=== PATIENT | female | born 1965 | race Caucasian/White ===

== ENCOUNTER 2016-09-04 01:13 | Emergency (ER) | payer MEDICARE, MEDICAID ==
--- NOTE | 2016-09-04 01:41 | EDM.PDOC ---
ED HPI GENERAL MEDICAL PROBLEM - General Chief Complaint: General Stated Complaint: Increased SOB Time Seen by Provider: 09/04/16 01:20 Source of Information: Reports: Patient History Limitations: Reports: No limitations - History of Present Illness INITIAL COMMENTS - FREE TEXT/NARRATIVE: Pt claims that she was frying some tater toots in the frying neal around 9:30 pm when she started to feel shaky. She claims her hands started to shake and she started to feel short of breath. She felt anxious and then she tried to sleep. But felt more shaky and hence called ambulance. No chest pain. No nausea or vomiting. no chest tightness. Pt's vitals were stable on the way to the emergency room and was not in any distress. Pt appears much calm now and feels better. No other complaints. Onset Date: 09/03/16 Onset Time: 21:30 - Related Data Allergies Allergy/AdvReac Type Severity Reaction Status Date / Time No Known Allergies Allergy Verified 05/03/16 04:13 Home Meds: Home Meds Aspirin [Aspirin] 81 tab PO DAILY 08/05/13 [History] Divalproex Sodium [Divalproex Sodium ER] 500 mg PO DAILY 08/05/13 [History] Omeprazole [Omeprazole] 20 mg PO DAILY 08/05/13 [History] Simvastatin [Simvastatin] 20 mg PO BEDTIME 08/05/13 [History] Metoprolol Succinate [Toprol XL] 25 mg PO DAILY tab.er 02/28/15 [Rx] Divalproex Sodium [Divalproex Sodium ER] 1,000 mg PO BEDTIME 08/12/15 [History] Meloxicam 15 mg PO DAILY 08/12/15 [History] Nitroglycerin [Nitrostat] 0.4 mg SL ASDIRECTED PRN 08/12/15 [History] Venlafaxine HCl [Venlafaxine HCl ER] 300 mg PO DAILY 08/12/15 [History] amLODIPine [Norvasc] 2.5 mg PO DAILY 08/18/15 [History] busPIRone HCl [Buspirone HCl] 0.5 tab PO TID 08/25/15 [History] ALPRAZolam [Alprazolam] 0.5 mg PO BID 03/31/16 [History] Albuterol Sulfate 2.5 mg IH QID 03/31/16 [History] Etodolac 400 mg PO DAILY 03/31/16 [History] Fluticasone/Salmeterol [Advair 250-50 Diskus] 1 puff PO DAILY 03/31/16 [History] predniSONE [Prednisone] 50 mg PO DAILY 03/31/16 [History] Past Medical History HEENT History: Reports: Impaired vision Cardiovascular History: Reports: High cholesterol, Hypertension, Other (see below) Other Cardiovascular History: Raynaud phenomenon Respiratory History: Reports: Asthma, COPD Gastrointestinal History: Reports: GERD Genitourinary History: Reports: UTI, recurrent 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 Psychiatric History: Reports: Anxiety, Bipolar, Depression, Panic attack, Schizophrenia Dermatologic History: Reports: Other (see below) Other Dermatologic History: Chronic open area present to breast folds - Infectious Disease History Infectious Disease History: Reports: Influenza Social & Family History - Family History Family Medical History: Noncontributory HEENT: Reports: Impaired vision Cardiac: Reports: Other (see below) Other Cardiac Family History: Unknown Respiratory: Reports: Asthma GI: Reports: None : Reports: None OBGYN: Reports: None, Musculoskeletal: Reports: Arthritis Neurological: Reports: None Psychiatric: Reports: Anxiety, Bipolar, Depression, Panic attack Endocrine/Metabolic: Reports: None Hematologic: Reports: None Immunologic: Reports: None - Tobacco Use Smoking Status *Q: Current Every Day Smoker Years of Tobacco use: 20 Packs/Tins Daily: 2 Used Tobacco, but Quit: No Month Tobacco Last Used: 04/2015 Second Hand Smoke Exposure: No - Caffeine Use Caffeine Use: Reports: Coffee, Soda, Other Other Caffeine Use: juice, gatorade - Alcohol Use Days Per Week of Alcohol Use: 0 - Recreational Drug Use Recreational Drug Use: No ED ROS GENERAL - Review of Systems Review Of Systems: See Below Constitutional: Denies: fever, chills, weakness, fatigue, night sweats, diaphoresis, decreased appetite HEENT: Denies: Eye discharge, Rhinitis, Sinus problem, Throat pain, Throat swelling Respiratory: Reports: Shortness of Breath. Denies: Cough, Sputum Cardiovascular: Denies: Chest pain, Edema, Lightheadedness, Orthopnea GI/Abdominal: Denies: Abdominal pain, Anorexia, Constipation, Diarrhea, Nausea, Vomiting : Denies: dysuria, flank pain Musculoskeletal: Denies: neck pain, shoulder pain, arm pain, joint pain, joint swelling Skin: Denies: pruritis, rash Psychiatric: Reports: Anxiety. Denies: Agitation, Confusion, Depression, Hallucinations, Homicidal ideation, Suicidal ideation ED EXAM, GENERAL - Physical Exam Exam: See Below Exam Limited By: No limitations General Appearance: alert, WD/WN, no apparent distress Eye Exam: bilateral eye: EOMI, PERRL Ears: normal external exam, normal canal, hearing grossly normal, normal TMs Ear Exam: bilateral ear: auricle normal, canal normal, TM normal Nose: normal inspection, normal mucosa, no blood Throat/Mouth: Normal inspection, Normal lips, Normal teeth, Normal gums, Normal oropharynx, Normal voice, No airway compromise Head: atraumatic, normocephalic Neck: normal inspection, supple, non-tender, full range of motion Respiratory/Chest: no respiratory distress, lungs clear, normal breath sounds, no accessory muscle use, chest non-tender Cardiovascular: normal peripheral pulses, regular rate, rhythm, no edema, no gallop, no JVD, no murmur, no rub Peripheral Pulses: 2+: radial (L), radial (R) GI/Abdominal: normal bowel sounds, soft, non tender, no organomegaly, no distention, no abnormal bruit, no mass Neurological: alert, oriented, CN II-XII intact, normal cognition, normal gait, normal reflexes, no motor/sensory deficits Psychiatric: normal affect, normal mood, anxious EKG INTERPRETATION EKG Date: 09/04/16 Rhythm: NSR Rate (beats/min): 91 [place]: normal P-wave: present QRS: normal ST-T: normal QT: normal Course - Vital Signs Text/Narrative:: Pt's has significant bipolar disorder with anxiety. Her vitals are stable, her EKG is normal.Her sats appear normal at 97-99% on room air. She just had seen her psychiatrist 1 wk ago. Pt reassured that she had an anxiety attack. I have advised patient to give the hospital a call when she feels anxious and talk that way she doesn't end up in the emergency room. Pt does visit emergency room with similar complaints on and off. she has had extensive workup in the past and has been normal. her vitals and clinical exam is normal today. Pt was reassured and discharged Departure - Departure Time of Disposition: 01:50 Disposition: Home, Self-Care 01 Condition: fair Clinical Impression: Anxiety Forms: ED Department Discharge - Problem List & Annotations (1) Anxiety SNOMED Code(s): 55759495 Code(s): F41.9 - ANXIETY DISORDER, UNSPECIFIED Status: Acute Onset Date: 06/22/15 Annotation/Comment:: 09/21/15 - Anxiety, symptoms currently resolved. - Problem List Review Problem List Initiated/Reviewed/Updated: Yes - Assessment/Plan Assessment:: anxiety Plan: Pt's has significant bipolar disorder with anxiety. Her vitals are stable, her EKG is normal.Her sats appear normal at 97-99% on room air. She just had seen her psychiatrist 1 wk ago. Pt reassured that she had an anxiety attack. I have advised patient to give the hospital a call when she feels anxious and talk that way she doesn't end up in the emergency room. Pt does visit emergency room with similar complaints on and off. she has had extensive workup in the past and has been normal. her vitals and clinical exam is normal today. Pt was reassured and discharged
[2016-09-04 03:09] VITALS: BP 114/73
== END 2016-09-04 01:45 | disposition home or self-care (01) ==
LOC: LB.ED 01:13
DX: F41.9 Anxiety disorder, unspecified (principal); E78.00 Pure hypercholesterolemia, unspecified; I10 Essential (primary) hypertension; J45.909 Unspecified asthma, uncomplicated; J44.9 Chronic obstructive pulmonary disease, unspecified; K21.9 Gastro-esophageal reflux disease without esophagitis; Z87.440 Personal history of urinary (tract) infections; F32.9 Major depressive disorder, single episode, unspecified; F17.210 Nicotine dependence, cigarettes, uncomplicated; Z79.899 Other long term (current) drug therapy; Z79.82 Long term (current) use of aspirin
CPT/HCPCS: 93005; 99283; 99285-25

== ENCOUNTER 2016-10-25 22:52 | Emergency (ER) | payer MEDICARE, MEDICAID ==
[2016-10-25] MEDS ORDERED: LORazepam 0.5 MG Tab PO ONE (23:17)
[2016-10-25 23:53] VITALS: BP 135/61
[2016-10-26] MEDS ORDERED: LORazepam 0.5 MG Tab ONE (00:53)
--- NOTE | 2016-10-26 00:58 | EDM.PDOC ---
ED HPI GENERAL MEDICAL PROBLEM - General Chief Complaint: General Stated Complaint: anxiety - fall Time Seen by Provider: 10/25/16 23:00 Source of Information: Reports: Patient History Limitations: Reports: No Limitations - History of Present Illness INITIAL COMMENTS - FREE TEXT/NARRATIVE: Patient is a 51 year old woman who has a history of costochondritis and panic attacks. She was taken off of her Xanax abruptly yesterday by her psychiatrist and then today her dog bit someone and animal control took the dog to be observed. Tonight after the dog left she felt very bad and she got very anxious and had chest pain which caused her to call the ambulance to come pick her up to be brought to the ED for further evaluation. Onset: Today, Sudden Onset Date: 10/25/16 Duration: Hour(s):, Constant Location: Reports: Chest Quality: Reports: Sharp Severity: Mild Improves with: Reports: None Worsens with: Reports: None Context: Reports: Other (anxious) Associated Symptoms: Reports: No Other Symptoms - Related Data Allergies Allergy/AdvReac Type Severity Reaction Status Date / Time No Known Allergies Allergy Verified 09/04/16 03:07 Home Meds: Home Meds Aspirin [Aspirin] 81 tab PO DAILY 08/05/13 [History] Divalproex Sodium [Divalproex Sodium ER] 500 mg PO DAILY 08/05/13 [History] Omeprazole [Omeprazole] 20 mg PO DAILY 08/05/13 [History] Simvastatin [Simvastatin] 20 mg PO BEDTIME 08/05/13 [History] Metoprolol Succinate [Toprol XL] 25 mg PO DAILY tab.er 02/28/15 [Rx] Divalproex Sodium [Divalproex Sodium ER] 1,000 mg PO BEDTIME 08/12/15 [History] Meloxicam 15 mg PO DAILY 08/12/15 [History] Nitroglycerin [Nitrostat] 0.4 mg SL ASDIRECTED PRN 08/12/15 [History] Venlafaxine HCl [Venlafaxine HCl ER] 300 mg PO DAILY 08/12/15 [History] amLODIPine [Norvasc] 2.5 mg PO DAILY 08/18/15 [History] busPIRone HCl [Buspirone HCl] 0.5 tab PO TID 08/25/15 [History] ALPRAZolam [Alprazolam] 0.5 mg PO BID 03/31/16 [History] Albuterol Sulfate 2.5 mg IH QID 03/31/16 [History] Etodolac 400 mg PO DAILY 03/31/16 [History] Fluticasone/Salmeterol [Advair 250-50 Diskus] 1 puff PO DAILY 03/31/16 [History] predniSONE [Prednisone] 50 mg PO DAILY 03/31/16 [History] Past Medical History HEENT History: Reports: Impaired Vision Cardiovascular History: Reports: High Cholesterol, Hypertension, Other (See Below) Other Cardiovascular History: Raynaud phenomenon Respiratory History: Reports: COPD Gastrointestinal History: Reports: GERD Genitourinary History: Reports: UTI, 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 - Infectious Disease History Infectious Disease History: Reports: Influenza Social & Family History - Family History Family Medical History: Noncontributory HEENT: Reports: Impaired Vision Cardiac: Reports: Other (See Below) Other Cardiac Family History: Unknown Respiratory: Reports: Asthma GI: Reports: None : Reports: None OBGYN: Reports: None, Musculoskeletal: Reports: Arthritis Neurological: Reports: None Psychiatric: Reports: Anxiety, Bipolar, Depression, Panic Attack Endocrine/Metabolic: Reports: None Hematologic: Reports: None Immunologic: Reports: None - Tobacco Use Smoking Status *Q: Unknown Ever Smoked Years of Tobacco use: 20 Packs/Tins Daily: 2 Used Tobacco, but Quit: No Month Tobacco Last Used: 04/2015 Second Hand Smoke Exposure: No - Caffeine Use Caffeine Use: Reports: None Other Caffeine Use: juice, gatorade - Alcohol Use Days Per Week of Alcohol Use: 0 - Recreational Drug Use Recreational Drug Use: No ED ROS GENERAL - Review of Systems Review Of Systems: See Below Constitutional: Reports: No Symptoms HEENT: Reports: No Symptoms Respiratory: Reports: No Symptoms Cardiovascular: Reports: Chest Pain Endocrine: Reports: No Symptoms GI/Abdominal: Reports: No Symptoms : Reports: No Symptoms Musculoskeletal: Reports: No Symptoms Skin: Reports: No Symptoms Neurological: Reports: No Symptoms Psychiatric: Reports: Anxiety Hematologic/Lymphatic: Reports: No Symptoms Immunologic: Reports: No Symptoms ED EXAM, GENERAL - Physical Exam Exam: See Below Exam Limited By: No Limitations General Appearance: Alert, WD/WN, No Apparent Distress Eye Exam: Bilateral Eye: Normal Fundi, Normal Inspection Ears: Normal External Exam, Normal Canal, Hearing Grossly Normal, Normal TMs Ear Exam: Bilateral Ear: Auricle Normal, Canal Normal, TM normal Nose: Normal Inspection, Normal Mucosa, No Blood Throat/Mouth: Normal Inspection, Normal Lips, Normal Teeth, Normal Gums, Normal Oropharynx, Normal Voice, No Airway Compromise Head: Atraumatic, Normocephalic Neck: Normal Inspection, Supple, Non-Tender, Full Range of Motion Respiratory/Chest: No Respiratory Distress, Lungs Clear, Normal Breath Sounds, No Accessory Muscle Use, Chest Non-Tender Cardiovascular: Normal Peripheral Pulses, Other (Pain on palpation over the costochondral junctions reproduces pain.) Peripheral Pulses: 3+: Carotid (L), Carotid (R), Posterior Tibial (L), Posterior Tibial (R), Dorsalis Pedis (L), Dorsalis Pedis (R) GI/Abdominal: Normal Bowel Sounds, Soft, Non-Tender, No Organomegaly (Female) Exam: Normal External Exam, Normal Speculum Exam, Normal Bimanual Exam Rectal (Female) Exam: Deferred Back Exam: Normal Inspection, Full Range of Motion, NT Extremities: Normal Inspection, Normal Range of Motion, Non-Tender, Normal Capillary Refill, No Pedal Edema Neurological: Alert Psychiatric: Anxious Skin Exam: Warm, Dry, Intact, Normal Color, No Rash Lymphatic: No Adenopathy EKG INTERPRETATION EKG Date: 10/25/16 Rhythm: NSR [place]: Normal P-Wave: Present QRS: Normal ST-T: Other (Nonspecific ST changes) QT: Normal Comparison: No Change (No acute changes noted.) Course - Vital Signs Text/Narrative:: Patient was given Lorazepam 0.5 mg and that immediately relaxed her and took away her chest pain. Last Recorded V/S: Last Vital Signs Temp 36.8 C 10/25/16 23:52 Pulse 85 10/25/16 23:52 Resp 12 10/25/16 23:52 BP 135/61 10/25/16 23:52 Pulse Ox 98 10/25/16 23:52 - Orders/Labs/Meds Orders: Active Orders 24 hr Category Date Time Status EKG Documentation Completion [RC] ASDIRECTED Care 10/25/16 23:15 Active Chest 1V Frontal [CR] Stat Exams 10/25/16 23:12 Taken Labs: Laboratory Tests 10/25/16 10/25/16 Range/Units 23:45 23:45 WBC 6.8 (4.0-11.0) K/uL RBC 4.48 (3.80-5.80) M/uL Hgb 12.2 (11.5-16.5) g/dL Hct 37.8 (37.0-47.0) % MCV 84 (76-96) fL MCH 27.2 (27.0-32.0) pg MCHC 32.3 (31.0-35.0) g/dL RDW 16.5 H (11.0-16.0) % Plt Count 199 (150-500) K/uL MPV 8.8 (6.0-10.0) fL Neut % (Auto) 29.2 L (45.0-70.0) % Lymph % (Auto) 54.4 H (20.0-40.0) % [place] % (Auto) 15.0 H (3.0-10.0) % Eos % (Auto) 1.3 (1.0-5.0) % Baso % (Auto) 0.1 (0.0-0.5) % Neut # (Auto) 1.98 L (2.00-7.50) K/uL Lymph # (Auto) 3.70 (1.50-4.00) K/uL [place]ett # (Auto) 1.02 H (0.20-0.80) K/uL Eos # (Auto) 0.09 (0.04-0.40) K/uL Baso # (Auto) 0.01 L (0.02-0.10) K/uL Sodium 136 (136-145) mmol/L Potassium 3.2 L (3.5-5.1) mmol/L Chloride 103 (98-107) mmol/L Carbon Dioxide 30.0 (21.0-32.0) mmol/L Anion Gap 6.2 (5.0-15.0) mmol/L BUN 13 D (8-26) mg/dL Creatinine 0.84 (0.55-1.02) mg/dL Est Cr Clr Drug Dosing TNP Estimated GFR (MDRD) > 60 (>60) MLS/MIN BUN/Creatinine Ratio 15.5 (6-25) Glucose 124 H (74-100) mg/dL Calcium 8.6 (8.5-10.1) mg/dL Total Bilirubin 0.1 D (0.0-1.0) mg/dL AST 77 H (15-37) U/L ALT 57 (12-78) U/L Alkaline Phosphatase 120 H (46-116) U/L Troponin I < 0.017 (0.000-0.060) ng/mL Total Protein 6.9 (6.4-8.2) g/dL Albumin 2.8 L (3.4-5.0) g/dL Globulin 4.1 (2.2-4.2) g/dL Albumin/Globulin Ratio 0.7 L (0.8-2.0) Meds: Medications Discontinued Medications Generic Name Dose Route Start Last Admin Trade Name Freq PRN Reason Stop Dose Admin Lorazepam 0.5 mg 10/25/16 23:17 10/26/16 00:08 Ativan PO 10/25/16 23:18 0.5 mg ONETIME ONE Administration Departure - Departure Time of Disposition: 01:05 Disposition: Home, Self-Care 01 Condition: Good Clinical Impression: Anxiety - Discharge Information Instructions: Costochondritis, [id number], Panic Attacks Referrals: PCP,None [Primary Care Provider] - Forms: ED Department Discharge - My Orders Last 24 Hours: My Active Orders 10/25/16 23:12 Chest 1V Frontal [CR] Stat 10/25/16 23:15 EKG Documentation Completion [RC] ASDIRECTED - Assessment/Plan Last 24 Hours: My Active Orders 10/25/16 23:12 Chest 1V Frontal [CR] Stat 10/25/16 23:15 EKG Documentation Completion [RC] ASDIRECTED
--- NOTE | 2016-10-27 10:32 | CR ---
DATE OF SERVICE: 10/25/16 CLINICAL DATA: chest pain AP CHEST Comparison is made to a prior exam dated 12/19/15. The heart size is normal. The patient has taken a poor inspiration. The lungs appear clear. The exam is otherwise negative. [id number] [facility]
== END 2016-10-26 01:30 | disposition home or self-care (01) ==
LOC: LB.ED 22:52
DX: F41.9 Anxiety disorder, unspecified (principal); E78.00 Pure hypercholesterolemia, unspecified; I10 Essential (primary) hypertension; J44.9 Chronic obstructive pulmonary disease, unspecified; K21.9 Gastro-esophageal reflux disease without esophagitis; H54.7 Unspecified visual loss; E11.9 Type 2 diabetes mellitus without complications; Z79.82 Long term (current) use of aspirin; Z79.899 Other long term (current) drug therapy
CPT/HCPCS: 36415; 71010; 80053; 84484; 85025; 93005; 99284; A9270

== ENCOUNTER 2016-10-29 00:07 | Observation (INO) | payer MEDICARE, MEDICAID ==
[2016-10-29] MEDS ORDERED: LORazepam 0.5 MG Tab PO ONE (01:00)
[2016-10-29] MEDS ORDERED: Acetaminophen 325 MG Tab PO PRN (01:00)
--- NOTE | 2016-10-29 01:22 | EDM.PDOC ---
ED HPI GENERAL MEDICAL PROBLEM - General Chief Complaint: General Stated Complaint: ANXIETY Time Seen by Provider: 10/29/16 00:31 Source of Information: Reports: Patient History Limitations: Reports: No Limitations - History of Present Illness INITIAL COMMENTS - FREE TEXT/NARRATIVE: This is a 51yo F brought in via EMS for anxiety. Patient denies any chest pain or sob. She states she feels anxious and had to come in because of everything that has happened lately with the loss of her dog (held for 14 days from last sat after biting a 7yo). She has lost her in the past year and felt a lot of emotion when packing his things as she prepared to move into the [employer] in [facility]. Patient states she felt a lot better in the last ER visit when she received some medication. She was discontinued off her xanax by Dr. Ordonez due to her alcohol use but states she quit drinking on Friday as she does not want to be placed on the '3rd' floor. Patient resting calmly in the stretcher. Onset: Gradual Duration: Day(s): Location: Reports: Generalized Severity: Mild Improves with: Reports: Medication Worsens with: Reports: None Associated Symptoms: Reports: No Other Symptoms - Related Data Allergies Allergy/AdvReac Type Severity Reaction Status Date / Time No Known Allergies Allergy Verified 09/04/16 03:07 Home Meds: Home Meds Aspirin [Aspirin] 81 tab PO DAILY 08/05/13 [History] Divalproex Sodium [Divalproex Sodium ER] 500 mg PO DAILY 08/05/13 [History] Omeprazole [Omeprazole] 20 mg PO DAILY 08/05/13 [History] Simvastatin [Simvastatin] 20 mg PO BEDTIME 08/05/13 [History] Metoprolol Succinate [Toprol XL] 25 mg PO DAILY tab.er 02/28/15 [Rx] Divalproex Sodium [Divalproex Sodium ER] 1,000 mg PO BEDTIME 08/12/15 [History] Meloxicam 15 mg PO DAILY 08/12/15 [History] Nitroglycerin [Nitrostat] 0.4 mg SL ASDIRECTED PRN 08/12/15 [History] Venlafaxine HCl [Venlafaxine HCl ER] 300 mg PO DAILY 08/12/15 [History] amLODIPine [Norvasc] 2.5 mg PO DAILY 08/18/15 [History] busPIRone HCl [Buspirone HCl] 0.5 tab PO TID 08/25/15 [History] ALPRAZolam [Alprazolam] 0.5 mg PO BID 03/31/16 [History] Albuterol Sulfate 2.5 mg IH QID 03/31/16 [History] Etodolac 400 mg PO DAILY 03/31/16 [History] Fluticasone/Salmeterol [Advair 250-50 Diskus] 1 puff PO DAILY 03/31/16 [History] predniSONE [Prednisone] 50 mg PO DAILY 03/31/16 [History] Past Medical History HEENT History: Reports: Impaired Vision Cardiovascular History: Reports: High Cholesterol, Hypertension, Other (See Below) Other Cardiovascular History: Raynaud phenomenon Respiratory History: Reports: COPD Gastrointestinal History: Reports: GERD Genitourinary History: Reports: UTI, 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 - Infectious Disease History Infectious Disease History: Reports: Influenza Social & Family History - Family History Family Medical History: Noncontributory HEENT: Reports: Impaired Vision Cardiac: Reports: Other (See Below) Other Cardiac Family History: Unknown Respiratory: Reports: Asthma GI: Reports: None : Reports: None OBGYN: Reports: None, Musculoskeletal: Reports: Arthritis Neurological: Reports: None Psychiatric: Reports: Anxiety, Bipolar, Depression, Panic Attack Endocrine/Metabolic: Reports: None Hematologic: Reports: None Immunologic: Reports: None - Tobacco Use Smoking Status *Q: Current Every Day Smoker Years of Tobacco use: 20 Packs/Tins Daily: 1 Used Tobacco, but Quit: No Month Tobacco Last Used: 04/2015 Second Hand Smoke Exposure: No - Caffeine Use Caffeine Use: Reports: None Other Caffeine Use: juice, gatorade - Alcohol Use Days Per Week of Alcohol Use: 0 - Recreational Drug Use Recreational Drug Use: No ED ROS GENERAL - Review of Systems Review Of Systems: ROS reveals no pertinent complaints other than HPI. ED EXAM, GENERAL - Physical Exam Exam: See Below Exam Limited By: No Limitations General Appearance: Alert, WD/WN, No Apparent Distress Ears: Normal External Exam Nose: Normal Inspection Throat/Mouth: Normal Inspection, Other (missing teeth, cavities) Head: Atraumatic, Normocephalic Neck: Normal Inspection Respiratory/Chest: No Respiratory Distress, Lungs Clear Cardiovascular: Normal Peripheral Pulses, Regular Rate, Rhythm Peripheral Pulses: 2+: Dorsalis Pedis (L), Dorsalis Pedis (R) GI/Abdominal: Normal Bowel Sounds, Soft, Non-Tender Extremities: Normal Inspection, Normal Range of Motion Neurological: Alert, Oriented, CN II-XII Intact Skin Exam: Other (scarring and abrasions from scratching of her right breast due to anxiety, cigarrette burn of the lower right abdomen as she fell asleep smoking) Course - Vital Signs Last Recorded V/S: Last Vital Signs Temp 37.1 C 10/29/16 00:28 Pulse 91 10/29/16 00:28 Resp 12 10/29/16 00:28 BP 143/84 H 10/29/16 00:28 Pulse Ox 98 10/29/16 00:28 - Orders/Labs/Meds Orders: Active Orders 24 hr Category Date Time Status Patient Status [ADT] Routine ADT 10/29/16 01:00 Active Oxygen Therapy [RC] PRN Care 10/29/16 01:00 Active Vital Signs [RC] Q8H Care 10/29/16 01:00 Active Heart Healthy Diet [DIET] Diet 10/29/16 Breakfast Ordered Acetaminophen [Tylenol] Med 10/29/16 01:00 Active 650 mg PO Q4H PRN Medication Orders Acetaminophen (Tylenol) 650 mg PO Q4H PRN PRN Reason: analgesia/fever Meds: Medications Generic Name Dose Route Start Last Admin Trade Name Freq PRN Reason Stop Dose Admin Acetaminophen 650 mg 10/29/16 01:00 Tylenol PO Q4H PRN analgesia/fever Discontinued Medications Generic Name Dose Route Start Last Admin Trade Name Freq PRN Reason Stop Dose Admin Lorazepam 0.5 mg 10/29/16 01:00 Ativan PO 10/29/16 01:01 ONETIME ONE Departure - Departure Time of Disposition: 01:24 Disposition: Refer to Observation Condition: Good Clinical Impression: Anxiety Depression Qualifiers: Depression Type: other depression Qualified Code(s): F32.89 - Other specified depressive episodes - Discharge Information Forms: ED Department Discharge - Problem List Review Problem List Initiated/Reviewed/Updated: Yes - My Orders Last 24 Hours: My Active Orders 10/29/16 01:00 Patient Status [ADT] Routine Oxygen Therapy [RC] PRN Vital Signs [RC] Q8H Acetaminophen [Tylenol] 650 mg PO Q4H PRN 10/29/16 Breakfast Heart Healthy Diet [DIET] - Assessment/Plan Last 24 Hours: My Active Orders 10/29/16 01:00 Patient Status [ADT] Routine Oxygen Therapy [RC] PRN Vital Signs [RC] Q8H Acetaminophen [Tylenol] 650 mg PO Q4H PRN 10/29/16 Breakfast Heart Healthy Diet [DIET] Plan: Patient placed on observation and will be discharged prior to her clinic visit for further follow up and management discussion of anxiety management and medical management. Patient agrees with plan of care. 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 We will monitor her overnight and if all is well discharge her in time for her to get to her clinic appointment.
[2016-10-29 11:15] VITALS: BP 102/6
--- NOTE | 2016-10-31 09:40 | PCM.DCSUM1 ---
Discharge Summary - Discharge Data Discharge Date: 10/29/16 Discharge Disposition: Home, Self-Care 01 Condition: Good - Discharge Diagnosis/Problem(s) (1) Anxiety and depression SNOMED Code(s): 574277254 ICD Code: F41.9 - ANXIETY DISORDER, UNSPECIFIED; F32.9 - MAJOR DEPRESSIVE DISORDER, SINGLE EPISODE, UNSPECIFIED Status: Acute Priority: High Onset Date: 07/17/15 Problem Details: 10/29/15 - Anxiety and depression - Patient Instructions Diet: Usual Diet as Tolerated Activity: Rest and Relax Today - Discharge Plan Home Medications: Home Meds Aspirin [Aspirin] 81 tab PO DAILY 08/05/13 [History] Divalproex Sodium [Divalproex Sodium ER] 500 mg PO DAILY 08/05/13 [History] Omeprazole [Omeprazole] 20 mg PO DAILY 08/05/13 [History] Simvastatin [Simvastatin] 20 mg PO BEDTIME 08/05/13 [History] Metoprolol Succinate [Toprol XL] 25 mg PO DAILY tab.er 02/28/15 [Rx] Divalproex Sodium [Divalproex Sodium ER] 1,000 mg PO BEDTIME 08/12/15 [History] Meloxicam 15 mg PO DAILY 08/12/15 [History] Nitroglycerin [Nitrostat] 0.4 mg SL ASDIRECTED PRN 08/12/15 [History] Venlafaxine HCl [Venlafaxine HCl ER] 300 mg PO DAILY 08/12/15 [History] amLODIPine [Norvasc] 2.5 mg PO DAILY 08/18/15 [History] busPIRone HCl [Buspirone HCl] 0.5 tab PO TID 08/25/15 [History] ALPRAZolam [Alprazolam] 0.5 mg PO BID 03/31/16 [History] Albuterol Sulfate 2.5 mg IH QID 03/31/16 [History] Etodolac 400 mg PO DAILY 03/31/16 [History] Fluticasone/Salmeterol [Advair 250-50 Diskus] 1 puff PO DAILY 03/31/16 [History] predniSONE [Prednisone] 50 mg PO DAILY 03/31/16 [History] Forms: ED Department Discharge Referrals: PCP,None [Primary Care Provider] - - Discharge Summary/Plan Comment DC Time >30 min.: Yes Discharge Summary/Plan Comment: Patient counseled extensively with discharge instructions, alcohol cessation, medication compliance and f/u behavioral and psychiatric services. Patient agrees with plan of care and f/u today with [facility] in clinic. Patient denies any concerns or issues today. - Patient Data Vitals - Most Recent: Last Vital Signs Temp 35.9 C 10/29/16 09:00 Pulse 82 10/29/16 09:00 Resp 14 10/29/16 09:00 BP 102/6 L 10/29/16 09:00 Pulse Ox 95 10/29/16 09:00 Weight - Most Recent: 117.934 kg Med Orders - Current: Current Medications Discontinued Medications Acetaminophen (Tylenol) 650 mg PO Q4H PRN PRN Reason: analgesia/fever Last Admin: 10/29/16 01:32 Dose: 650 mg Lorazepam (Ativan) 0.5 mg PO ONETIME ONE Stop: 10/29/16 01:01 Last Admin: 10/29/16 01:32 Dose: 0.5 mg *Q Meaningful Use (DIS) - VTE *Q VTE Criteria *Q: - Stroke *Q Stroke Criteria *Q: - AMI *Q AMI Criteria *Q:
== END 2016-10-29 10:20 | disposition home or self-care (01) ==
LOC: LB.ED 00:07 → LB.MS 01:00 → UNDOADMOB 01:10 → LB.MS 01:10
PROVIDERS: ADMIT Family Medicine; ATTEND Family Medicine
DX: F41.8 Other specified anxiety disorders (principal); I10 Essential (primary) hypertension; E78.00 Pure hypercholesterolemia, unspecified; J44.9 Chronic obstructive pulmonary disease, unspecified; K21.9 Gastro-esophageal reflux disease without esophagitis; E11.9 Type 2 diabetes mellitus without complications; Z79.82 Long term (current) use of aspirin; Z79.899 Other long term (current) drug therapy; F17.210 Nicotine dependence, cigarettes, uncomplicated
CPT/HCPCS: A9270 ×2; 99235; 99284; G0378

== ENCOUNTER 2016-11-02 19:33 | Emergency (ER) | payer MEDICARE, MEDICAID ==
[2016-11-02 19:54] VITALS: BP 139/71
[2016-11-02] MEDS ORDERED: Ketorolac 60 MG/2 ML SDV IM ONE (19:54)
--- NOTE | 2016-11-03 17:07 | EDM.PDOC ---
ED HPI GENERAL MEDICAL PROBLEM - General Chief Complaint: General Stated Complaint: FALL Time Seen by Provider: 11/02/16 19:40 Source of Information: Reports: Patient History Limitations: Reports: No Limitations - History of Present Illness INITIAL COMMENTS - FREE TEXT/NARRATIVE: This is a 51yo F who is planning to move in the next week to the [facility] [place]. She fell at home in [place] and called EMS. She states she laid on the ground until they arrived. She was able to walk with EMS to their rig. She complains of left shoulder pain and denies any other injury or pain. Patient was brought to the ER for further evaluation. Onset: Sudden Duration: Minutes: Location: Reports: Upper Extremity, Left Quality: Reports: Ache Severity: Mild Improves with: Reports: None Worsens with: Reports: None Left Shoulder Pain Score (Numeric/FACES): 6 - Related Data Allergies Allergy/AdvReac Type Severity Reaction Status Date / Time No Known Allergies Allergy Verified 11/02/16 19:51 Home Meds: Home Meds Aspirin [Aspirin] 81 tab PO DAILY 08/05/13 [History] Divalproex Sodium [Divalproex Sodium ER] 500 mg PO DAILY 08/05/13 [History] Omeprazole [Omeprazole] 20 mg PO DAILY 08/05/13 [History] Simvastatin [Simvastatin] 20 mg PO BEDTIME 08/05/13 [History] Metoprolol Succinate [Toprol XL] 25 mg PO DAILY tab.er 02/28/15 [Rx] Divalproex Sodium [Divalproex Sodium ER] 1,000 mg PO BEDTIME 08/12/15 [History] Meloxicam 15 mg PO DAILY 08/12/15 [History] Nitroglycerin [Nitrostat] 0.4 mg SL ASDIRECTED PRN 08/12/15 [History] Venlafaxine HCl [Venlafaxine HCl ER] 300 mg PO DAILY 08/12/15 [History] amLODIPine [Norvasc] 2.5 mg PO DAILY 08/18/15 [History] busPIRone HCl [Buspirone HCl] 0.5 tab PO TID 08/25/15 [History] ALPRAZolam [Alprazolam] 0.5 mg PO BID 03/31/16 [History] Albuterol Sulfate 2.5 mg IH QID 03/31/16 [History] Etodolac 400 mg PO DAILY 03/31/16 [History] Fluticasone/Salmeterol [Advair 250-50 Diskus] 1 puff PO DAILY 03/31/16 [History] predniSONE [Prednisone] 50 mg PO DAILY 03/31/16 [History] Past Medical History HEENT History: Reports: Impaired Vision Cardiovascular History: Reports: High Cholesterol, Hypertension, Other (See Below) Other Cardiovascular History: Raynaud phenomenon Respiratory History: Reports: COPD Gastrointestinal History: Reports: GERD Genitourinary History: Reports: UTI, Recurrent 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 - Infectious Disease History Infectious Disease History: Reports: Chicken Pox Social & Family History - Family History Family Medical History: Noncontributory HEENT: Reports: Impaired Vision Cardiac: Reports: Other (See Below) Other Cardiac Family History: Unknown Respiratory: Reports: Asthma GI: Reports: None : Reports: None OBGYN: Reports: None, Musculoskeletal: Reports: Arthritis Neurological: Reports: None Psychiatric: Reports: Anxiety, Bipolar, Depression, Panic Attack Endocrine/Metabolic: Reports: None Hematologic: Reports: None Immunologic: Reports: None - Tobacco Use Smoking Status *Q: Former Smoker Years of Tobacco use: 20 Packs/Tins Daily: 1 Used Tobacco, but Quit: Yes Month Tobacco Last Used: 04/2015 Second Hand Smoke Exposure: No - Caffeine Use Caffeine Use: Reports: None Other Caffeine Use: juice, gatorade - Alcohol Use Days Per Week of Alcohol Use: 0 - Recreational Drug Use Recreational Drug Use: No ED ROS GENERAL - Review of Systems Review Of Systems: ROS reveals no pertinent complaints other than HPI. ED EXAM, GENERAL - Physical Exam Exam: See Below Exam Limited By: No Limitations General Appearance: Alert, WD/WN, No Apparent Distress Ears: Normal External Exam Nose: Normal Inspection Throat/Mouth: Normal Inspection Head: Atraumatic, Normocephalic Neck: Normal Inspection Respiratory/Chest: No Respiratory Distress, Lungs Clear, Normal Breath Sounds, Chest Non-Tender Cardiovascular: Normal Peripheral Pulses, Regular Rate, Rhythm Peripheral Pulses: 2+: Dorsalis Pedis (L), Dorsalis Pedis (R) GI/Abdominal: Normal Bowel Sounds, Soft, Non-Tender Extremities: Normal Inspection, Normal Range of Motion, No Pedal Edema, Normal Capillary Refill, Other (tender left arm on ROM) Course - Vital Signs Last Recorded V/S: Last Vital Signs Temp 36.1 C 11/02/16 20:05 Pulse 88 11/02/16 20:05 Resp 16 11/02/16 20:05 BP 139/71 11/02/16 20:05 Pulse Ox 100 11/02/16 20:05 - Orders/Labs/Meds Meds: Medications Discontinued Medications Generic Name Dose Route Start Last Admin Trade Name Lamar PRN Reason Stop Dose Admin Ketorolac Tromethamine 60 mg 11/02/16 19:54 11/02/16 19:50 Toradol IM 11/02/16 19:55 60 mg ONETIME ONE Administration Departure - Departure Time of Disposition: 20:20 Disposition: Home, Self-Care 01 Condition: Good Clinical Impression: Left shoulder strain Qualifiers: Encounter type: initial encounter Qualified Code(s): S46.912A - Strain of unspecified muscle, fascia and tendon at shoulder and upper arm level, left arm , initial encounter - Discharge Information Instructions: Naproxen and naproxen sodium oral immediate-release tablets Forms: ED Department Discharge Additional Instructions: Begin taking provided Aleve as directed: 1 tablet by mouth twice daily (every 12 hours) for pain. Do not take prescribed Meloxicam when taking Aleve. Activity as tolerated with affected left shoulder. Follow up in clinic if needed. Call with any questions. - Problem List Review Problem List Initiated/Reviewed/Updated: Yes - Assessment/Plan Plan: Counseled on supportive therapy and conservative care. Discussed mild injury to left shoulder and f/u in clinic if any further symptoms or concerns. Patient agrees with plan of care and f/u. Patient counseled on Aleve use and f/u.
== END 2016-11-02 20:00 | disposition home or self-care (01) ==
LOC: LB.ED 19:33
DX: S46.912A Strain of unspecified muscle, fascia and tendon at shoulder and upper arm level, left arm, initial encounter (principal); I10 Essential (primary) hypertension; E78.00 Pure hypercholesterolemia, unspecified; J44.9 Chronic obstructive pulmonary disease, unspecified; K21.9 Gastro-esophageal reflux disease without esophagitis; F41.0 Panic disorder [episodic paroxysmal anxiety]; F31.9 Bipolar disorder, unspecified; F20.9 Schizophrenia, unspecified; E11.9 Type 2 diabetes mellitus without complications; Z87.891 Personal history of nicotine dependence; Z79.82 Long term (current) use of aspirin; Z79.899 Other long term (current) drug therapy; W19.XXXA Unspecified fall, initial encounter; Y92.009 Unspecified place in unspecified non-institutional (private) residence as the place of occurrence of the external cause
CPT/HCPCS: 96372; 99283; J1885; 99282

== ENCOUNTER 2016-12-04 23:07 | Emergency (ER) | payer MEDICARE, MEDICAID ==
[2016-12-04] MEDS ORDERED: Methocarbamol 500 MG Tab ONE (23:30)
[2016-12-04 23:32] VITALS: BP 153/95
--- NOTE | 2016-12-11 12:43 | EDM.PDOC ---
ED HPI GENERAL MEDICAL PROBLEM - General Chief Complaint: General Stated Complaint: TINGLING ARMS Time Seen by Provider: 12/04/16 23:15 Source of Information: Reports: Patient History Limitations: Reports: No Limitations - History of Present Illness INITIAL COMMENTS - FREE TEXT/NARRATIVE: This is a 51yo F brought in by EMS for left arm tingling. Patient states it has happened to her in the past without progression but this time it felt worse. She didn't know what to do and called EMS. She denies any sob, no Chest pain, no other issues or concerns. She states the arm is tingling from the shoulder down. Onset: Sudden Duration: Hour(s):, Constant Location: Reports: Upper Extremity, Left Severity: Mild Improves with: Reports: None Worsens with: Reports: None Associated Symptoms: Reports: No Other Symptoms - Related Data Allergies Allergy/AdvReac Type Severity Reaction Status Date / Time No Known Allergies Allergy Verified 11/02/16 19:51 Home Meds: Home Meds Aspirin [Aspirin] 81 tab PO DAILY 08/05/13 [History] Divalproex Sodium [Divalproex Sodium ER] 500 mg PO DAILY 08/05/13 [History] Omeprazole [Omeprazole] 20 mg PO DAILY 08/05/13 [History] Simvastatin [Simvastatin] 20 mg PO BEDTIME 08/05/13 [History] Metoprolol Succinate [Toprol XL] 25 mg PO DAILY tab.er 02/28/15 [Rx] Divalproex Sodium [Divalproex Sodium ER] 1,000 mg PO BEDTIME 08/12/15 [History] Meloxicam 15 mg PO DAILY 08/12/15 [History] Nitroglycerin [Nitrostat] 0.4 mg SL ASDIRECTED PRN 08/12/15 [History] Venlafaxine HCl [Venlafaxine HCl ER] 300 mg PO DAILY 08/12/15 [History] amLODIPine [Norvasc] 2.5 mg PO DAILY 08/18/15 [History] busPIRone HCl [Buspirone HCl] 0.5 tab PO TID 08/25/15 [History] ALPRAZolam [Alprazolam] 0.5 mg PO BID 03/31/16 [History] Albuterol Sulfate 2.5 mg IH QID 03/31/16 [History] Etodolac 400 mg PO DAILY 03/31/16 [History] Fluticasone/Salmeterol [Advair 250-50 Diskus] 1 puff PO DAILY 03/31/16 [History] predniSONE [Prednisone] 50 mg PO DAILY 03/31/16 [History] Past Medical History HEENT History: Reports: Impaired Vision Cardiovascular History: Reports: High Cholesterol, Hypertension, Other (See Below) Other Cardiovascular History: Raynaud phenomenon Respiratory History: Reports: COPD Gastrointestinal History: Reports: GERD Genitourinary History: Reports: UTI, 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 - Infectious Disease History Infectious Disease History: Reports: Chicken Pox Social & Family History - Family History Family Medical History: Noncontributory HEENT: Reports: Impaired Vision Cardiac: Reports: Other (See Below) Other Cardiac Family History: Unknown Respiratory: Reports: Asthma GI: Reports: None : Reports: None OBGYN: Reports: None, Musculoskeletal: Reports: Arthritis Neurological: Reports: None Psychiatric: Reports: Anxiety, Bipolar, Depression, Panic Attack Endocrine/Metabolic: Reports: None Hematologic: Reports: None Immunologic: Reports: None - Tobacco Use Smoking Status *Q: Current Every Day Smoker Years of Tobacco use: 30 Packs/Tins Daily: 0.5 Used Tobacco, but Quit: Yes Month Tobacco Last Used: 11/2016 Second Hand Smoke Exposure: No - Caffeine Use Caffeine Use: Reports: None Other Caffeine Use: juice, gatorade - Alcohol Use Days Per Week of Alcohol Use: 0 - Recreational Drug Use Recreational Drug Use: No ED ROS GENERAL - Review of Systems Review Of Systems: ROS reveals no pertinent complaints other than HPI. ED EXAM, GENERAL - Physical Exam Exam: See Below Exam Limited By: No Limitations General Appearance: Alert, WD/WN, No Apparent Distress Eye Exam: Bilateral Eye: EOMI, PERRL Ears: Normal External Exam Nose: Normal Inspection Throat/Mouth: Normal Inspection Head: Atraumatic, Normocephalic Neck: Normal Inspection Respiratory/Chest: No Respiratory Distress, Lungs Clear, Normal Breath Sounds Cardiovascular: Normal Peripheral Pulses, Regular Rate, Rhythm GI/Abdominal: Normal Bowel Sounds Back Exam: Normal Inspection Extremities: Normal Inspection, Normal Range of Motion, Non-Tender, No Pedal Edema, Normal Capillary Refill Neurological: Alert, Oriented, CN II-XII Intact, Normal Cognition, Normal Gait, Normal Reflexes, No Motor/Sensory Deficits Psychiatric: Normal Affect, Normal Mood Skin Exam: Warm, Dry, Intact Course - Vital Signs Last Recorded V/S: Last Vital Signs Temp 36.4 C 12/04/16 23:34 Pulse 87 12/04/16 23:34 Resp 20 12/04/16 23:34 BP 153/95 H 12/04/16 23:34 Pulse Ox 99 12/04/16 23:34 - Orders/Labs/Meds Meds: Medications Discontinued Medications Generic Name Dose Route Start Last Admin Trade Name Lamar PRN Reason Stop Dose Admin Methocarbamol 7,500 mg 12/04/16 23:30 Robaxin .ROUTE 12/04/16 23:31 .STK-MED ONE Departure - Departure Time of Disposition: 00:25 Disposition: Home, Self-Care 01 Condition: Good Clinical Impression: Numbness and tingling in left upper extremity, Neck pain Instructions: Muscle Strain, [id number], Naproxen Sodium oral tablet, extended-release, Methocarbamol tablets Referrals: PCP,None [Primary Care Provider] - Forms: ED Department Discharge Additional Instructions: Begin taking provided Robaxin this evening, as directed: 1 tab by mouth every 8 hours as needed for muscle pain. Also take provided Aleve as directed: 1 tablet by mouth every 12 hours for pain present. Be sure to take Aleve with food and water to avoid causing upset stomach. Activity as tolerated. Drink plenty of fluids (water) and get plenty of rest. Follow up with regular provider in clinic as needed. Call with any questions. - Problem List Review Problem List Initiated/Reviewed/Updated: Yes - Assessment/Plan Plan: Counseled on supportive care and conservative care. Given muscle relaxants for neck and f/u in clinic as advised. F/u as needed.
== END 2016-12-04 23:46 | disposition home or self-care (01) ==
LOC: LB.ED 23:07
DX: R20.2 Paresthesia of skin (principal); R20.0 Anesthesia of skin; M54.2 Cervicalgia; F17.210 Nicotine dependence, cigarettes, uncomplicated; I10 Essential (primary) hypertension; E78.00 Pure hypercholesterolemia, unspecified; J44.9 Chronic obstructive pulmonary disease, unspecified; K21.9 Gastro-esophageal reflux disease without esophagitis; F41.0 Panic disorder [episodic paroxysmal anxiety]; F31.9 Bipolar disorder, unspecified; E11.9 Type 2 diabetes mellitus without complications; Z79.82 Long term (current) use of aspirin; Z79.899 Other long term (current) drug therapy
CPT/HCPCS: 99283; A9270

== ENCOUNTER 2017-01-22 22:51 | Emergency (ER) | payer MEDICARE, MEDICAID ==
[2017-01-22 22:56] VITALS: BP 150/73
[2017-01-22] MEDS ORDERED: Albuterol/Ipratropium 3.0-0.5 MG/3 ML Neb Soln NEB ONE (23:24)
--- NOTE | 2017-01-23 03:57 | EDM.PDOC ---
ED HPI GENERAL MEDICAL PROBLEM - General Chief Complaint: Respiratory Problem Stated Complaint: SHORTNESS OF BREATH Time Seen by Provider: 01/22/17 23:16 Source of Information: Reports: Patient History Limitations: Reports: No Limitations - History of Present Illness INITIAL COMMENTS - FREE TEXT/NARRATIVE: This is a 51yo F brought in by EMS for sob. Patient states the symptoms started tonight and worsened. She called the hospital and talked to a nurse and then called EMS to bring her in. Patient states she has some increased difficulty breathing but denies any chest pain or other concerns. EMS noted that her apartment was very warm. Onset: Gradual Duration: Hour(s): Severity: Mild Improves with: Reports: None Worsens with: Reports: None Associated Symptoms: Reports: Shortness of Breath Headache Pain Score (Numeric/FACES): 5 - Related Data Allergies Allergy/AdvReac Type Severity Reaction Status Date / Time No Known Allergies Allergy Verified 01/22/17 22:54 Home Meds: Home Meds Aspirin [Aspirin] 81 tab PO DAILY 08/05/13 [History] Divalproex Sodium [Divalproex Sodium ER] 500 mg PO DAILY 08/05/13 [History] Omeprazole [Omeprazole] 20 mg PO DAILY 08/05/13 [History] Simvastatin [Simvastatin] 20 mg PO BEDTIME 08/05/13 [History] Metoprolol Succinate [Toprol XL] 25 mg PO DAILY tab.er 02/28/15 [Rx] Divalproex Sodium [Divalproex Sodium ER] 1,000 mg PO BEDTIME 08/12/15 [History] Meloxicam 15 mg PO DAILY 08/12/15 [History] Nitroglycerin [Nitrostat] 0.4 mg SL ASDIRECTED PRN 08/12/15 [History] Venlafaxine HCl [Venlafaxine HCl ER] 300 mg PO DAILY 08/12/15 [History] amLODIPine [Norvasc] 2.5 mg PO DAILY 08/18/15 [History] busPIRone HCl [Buspirone HCl] 0.5 tab PO TID 08/25/15 [History] ALPRAZolam [Alprazolam] 0.5 mg PO BID 03/31/16 [History] Albuterol Sulfate 2.5 mg IH QID 03/31/16 [History] Etodolac 400 mg PO DAILY 03/31/16 [History] Fluticasone/Salmeterol [Advair 250-50 Diskus] 1 puff PO DAILY 03/31/16 [History] predniSONE [Prednisone] 50 mg PO DAILY 03/31/16 [History] Past Medical History HEENT History: Reports: Impaired Vision Cardiovascular History: Reports: High Cholesterol, Hypertension, Other (See Below) Other Cardiovascular History: Raynaud phenomenon Respiratory History: Reports: COPD Gastrointestinal History: Reports: GERD Genitourinary History: Reports: UTI, Recurrent 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 - Infectious Disease History Infectious Disease History: Reports: Chicken Pox Social & Family History - Family History Family Medical History: Noncontributory HEENT: Reports: Impaired Vision Cardiac: Reports: Other (See Below) Other Cardiac Family History: Unknown Respiratory: Reports: Asthma GI: Reports: None : Reports: None OBGYN: Reports: None, Musculoskeletal: Reports: Arthritis Neurological: Reports: None Psychiatric: Reports: Anxiety, Bipolar, Depression, Panic Attack Endocrine/Metabolic: Reports: None Hematologic: Reports: None Immunologic: Reports: None - Tobacco Use Smoking Status *Q: Current Every Day Smoker Years of Tobacco use: 19 Packs/Tins Daily: 1 Used Tobacco, but Quit: Yes Month Tobacco Last Used: 11/2016 Second Hand Smoke Exposure: No - Caffeine Use Caffeine Use: Reports: None Other Caffeine Use: juice, gatorade - Alcohol Use Days Per Week of Alcohol Use: 0 - Recreational Drug Use Recreational Drug Use: No ED ROS GENERAL - Review of Systems Review Of Systems: See Below Constitutional: Reports: No Symptoms HEENT: Reports: No Symptoms Respiratory: Reports: Shortness of Breath Cardiovascular: Reports: No Symptoms Endocrine: Reports: No Symptoms GI/Abdominal: Reports: No Symptoms : Reports: No Symptoms Musculoskeletal: Reports: No Symptoms Skin: Reports: No Symptoms Neurological: Reports: No Symptoms Psychiatric: Reports: No Symptoms Hematologic/Lymphatic: Reports: No Symptoms Immunologic: Reports: No Symptoms ED EXAM, GENERAL - Physical Exam Exam: See Below Exam Limited By: No Limitations General Appearance: Alert, WD/WN, Mild Distress Eye Exam: Bilateral Eye: EOMI, PERRL Ears: Normal External Exam Nose: Normal Inspection Throat/Mouth: Normal Inspection Head: Atraumatic, Normocephalic Neck: Normal Inspection Respiratory/Chest: No Respiratory Distress, Lungs Clear, Normal Breath Sounds, No Accessory Muscle Use, Chest Non-Tender Cardiovascular: Normal Peripheral Pulses, Regular Rate, Rhythm Peripheral Pulses: 2+: Dorsalis Pedis (L), Dorsalis Pedis (R) GI/Abdominal: Normal Bowel Sounds Extremities: Normal Inspection Neurological: Alert, Oriented, CN II-XII Intact, Normal Cognition, Normal Gait, Normal Reflexes, No Motor/Sensory Deficits Psychiatric: Normal Affect, Normal Mood Skin Exam: Warm, Dry, Intact Course - Vital Signs Last Recorded V/S: Last Vital Signs Temp 36.6 C 01/22/17 23:00 Pulse 88 01/22/17 23:00 Resp 24 H 01/22/17 23:00 BP 150/73 H 01/22/17 22:55 Pulse Ox 99 01/22/17 23:00 - Orders/Labs/Meds Meds: Medications Discontinued Medications Generic Name Dose Route Start Last Admin Trade Name Lamar PRTony Reason Stop Dose Admin Albuterol/Ipratropium 3 ml 01/22/17 23:24 01/22/17 23:25 Duoneb 3.0-0.5 Mg/3 Ml NEB 01/22/17 23:25 3 ml Q2H ONE Administration - Re-Assessments/Exams Free Text/Narrative Re-Assessment/Exam: Duo neb given and symptoms improved with one treatment. Departure - Departure Time of Disposition: 00:45 Disposition: Home, Self-Care 01 Condition: Good Clinical Impression: Shortness of breath - Discharge Information Instructions: Shortness of Breath, [id number] Forms: ED Department Discharge Additional Instructions: Use the Neb treatment at least 4 times a day for the next few days to help open up the lungs. Take a Neb tx at 4:00am, 8:00am, and 12:00. Then see how you feel. If still Short of Breath continue every 4 hours. If you have any problems get an appointment at the clinic to be seen.
== END 2017-01-22 23:55 | disposition home or self-care (01) ==
LOC: LB.ED 22:51
DX: R06.02 Shortness of breath (principal); H54.7 Unspecified visual loss; E78.00 Pure hypercholesterolemia, unspecified; I10 Essential (primary) hypertension; F41.9 Anxiety disorder, unspecified; F31.9 Bipolar disorder, unspecified; F17.210 Nicotine dependence, cigarettes, uncomplicated; Z87.440 Personal history of urinary (tract) infections; Z79.82 Long term (current) use of aspirin
CPT/HCPCS: 99284; A0425; A0429; J7620

== ENCOUNTER 2017-04-29 18:34 | Emergency (ER) | payer MEDICARE, MEDICAID ==
[2017-04-29] MEDS ORDERED: Sodium Chloride 0.9% 10 ML Syringe FLUSH PRN (18:50)
--- NOTE | 2017-04-29 18:57 | EDM.PDOC ---
ED HPI GENERAL MEDICAL PROBLEM - General Chief Complaint: Chest Pain Stated Complaint: chest pain Time Seen by Provider: 04/29/17 18:41 Source of Information: Reports: Patient, EMS, RN History Limitations: Reports: No Limitations - History of Present Illness INITIAL COMMENTS - FREE TEXT/NARRATIVE: 51 yr female presents with chest pain. States it started about 2pm today, when she had a phone call from a family member. States she didn't take any anxiety medicine today. Onset: Today Onset Date: 04/29/17 Onset Time: 14:00 Duration: Getting Worse, Intermittent Location: Reports: Chest Quality: Reports: Sharp Severity: Moderate Associated Symptoms: Reports: Other (neck pain) Chest Pain Score (Numeric/FACES): 5 - Related Data Allergies Allergy/AdvReac Type Severity Reaction Status Date / Time No Known Allergies Allergy Verified 04/29/17 19:38 Home Meds: Home Meds Aspirin [Aspirin] 81 tab PO DAILY 08/05/13 [History] Divalproex Sodium [Divalproex Sodium ER] 500 mg PO DAILY 08/05/13 [History] Omeprazole [Omeprazole] 20 mg PO DAILY 08/05/13 [History] Simvastatin [Simvastatin] 20 mg PO BEDTIME 08/05/13 [History] Metoprolol Succinate [Toprol XL] 25 mg PO DAILY tab.er 02/28/15 [Rx] Divalproex Sodium [Divalproex Sodium ER] 1,000 mg PO BEDTIME 08/12/15 [History] Meloxicam 15 mg PO DAILY 08/12/15 [History] Nitroglycerin [Nitrostat] 0.4 mg SL ASDIRECTED PRN 08/12/15 [History] Venlafaxine HCl [Venlafaxine HCl ER] 300 mg PO DAILY 08/12/15 [History] amLODIPine [Norvasc] 2.5 mg PO DAILY 08/18/15 [History] busPIRone HCl [Buspirone HCl] 0.5 tab PO TID 08/25/15 [History] ALPRAZolam [Alprazolam] 0.5 mg PO BID 03/31/16 [History] Albuterol Sulfate 2.5 mg IH QID 03/31/16 [History] Etodolac 400 mg PO DAILY 03/31/16 [History] Fluticasone/Salmeterol [Advair 250-50 Diskus] 1 puff PO DAILY 03/31/16 [History] predniSONE [Prednisone] 50 mg PO DAILY 03/31/16 [History] Past Medical History HEENT History: Reports: Impaired Vision Cardiovascular History: Reports: High Cholesterol, Hypertension, Other (See Below) Other Cardiovascular History: Raynaud phenomenon Respiratory History: Reports: COPD Gastrointestinal History: Reports: GERD Genitourinary History: Reports: UTI, Recurrent [employer] History: Reports: Other (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 - Infectious Disease History Infectious Disease History: Reports: Chicken Pox Social & Family History - Family History Family Medical History: Noncontributory HEENT: Reports: Impaired Vision Cardiac: Reports: Other (See Below) Other Cardiac Family History: Unknown Respiratory: Reports: Asthma GI: Reports: None : Reports: None OBGYN: Reports: None, Musculoskeletal: Reports: Arthritis Neurological: Reports: None Psychiatric: Reports: Anxiety, Bipolar, Depression, Panic Attack Endocrine/Metabolic: Reports: None Hematologic: Reports: None Immunologic: Reports: None - Tobacco Use Smoking Status *Q: Current Every Day Smoker Years of Tobacco use: 19 Packs/Tins Daily: 1 Used Tobacco, but Quit: Yes Month Tobacco Last Used: 11/2016 Second Hand Smoke Exposure: No - Caffeine Use Caffeine Use: Reports: None Other Caffeine Use: juice, gatorade - Alcohol Use Days Per Week of Alcohol Use: 0 - Recreational Drug Use Recreational Drug Use: No ED ROS GENERAL - Review of Systems Review Of Systems: See Below Constitutional: Reports: No Symptoms HEENT: Reports: No Symptoms Respiratory: Reports: No Symptoms Cardiovascular: Reports: Chest Pain GI/Abdominal: Reports: Abdominal Pain, Constipation Musculoskeletal: Reports: Back Pain Skin: Reports: Other (wound right lou and under breast) Neurological: Reports: Headache Psychiatric: Reports: Anxiety ED EXAM, GENERAL - Physical Exam Exam: See Below Exam Limited By: No Limitations General Appearance: Alert, No Apparent Distress Ears: Normal External Exam Nose: Normal Inspection Throat/Mouth: Normal Lips, Normal Voice, No Airway Compromise Head: Atraumatic, Normocephalic Neck: Supple, Non-Tender Respiratory/Chest: Lungs Clear, Normal Breath Sounds Cardiovascular: Regular Rate, Rhythm GI/Abdominal: Normal Bowel Sounds, Soft, Non-Tender Extremities: Normal Range of Motion, Non-Tender Neurological: Alert, Normal Cognition Psychiatric: Normal Affect, Normal Mood Skin Exam: Warm, Dry, Normal Color EKG INTERPRETATION EKG Date: 04/29/17 Time: 18:55 Rhythm: NSR Rate (Beats/Min): 86 Course - Vital Signs Last Recorded V/S: Last Vital Signs Temp 97.3 F 04/29/17 19:50 Pulse 110 H 04/29/17 19:50 Resp 20 04/29/17 19:50 BP 153/91 H 04/29/17 19:50 Pulse Ox 99 04/29/17 19:50 - Orders/Labs/Meds Orders: Active Orders 24 hr Category Date Time Status Cardiac Monitoring [RC] .As Directed Care 04/29/17 18:50 Active EKG Documentation Completion [RC] ASDIRECTED Care 04/29/17 18:51 Active Chest 1V Frontal [CR] Stat Exams 04/29/17 18:51 Taken B-TYPE NATRIURETIC PEPTIDE,BNP [CHEM] Stat Lab 04/29/17 19:30 Results CBC WITH AUTO DIFF [HEME] Stat Lab 04/29/17 19:30 Received COMPREHENSIVE METABOLIC PN,CMP [CHEM] Stat Lab 04/29/17 19:30 Results TROPONIN I [CHEM] Stat Lab 04/29/17 19:30 Results Sodium Chloride 0.9% [Saline Flush] Med 04/29/17 18:50 Active 10 ml FLUSH ASDIRECTED PRN Saline Lock Insert [OM.PC] Stat Oth 04/29/17 18:50 Ordered Medication Orders Sodium Chloride (Saline Flush) 10 ml FLUSH ASDIRECTED PRN PRN Reason: Keep Vein Open Labs: Laboratory Tests 04/29/17 Range/Units 19:30 Estimated GFR (MDRD) > 60 (>60) MLS/MIN Meds: Medications Generic Name Dose Route Start Last Admin Trade Name Freq PRN Reason Stop Dose Admin Sodium Chloride 10 ml 04/29/17 18:50 Saline Flush FLUSH ASDIRECTED PRN Keep Vein Open Discontinued Medications Generic Name Dose Route Start Last Admin Trade Name Isaelq PRN Reason Stop Dose Admin Lorazepam 0.5 mg 04/29/17 19:08 Ativan PO 04/29/17 19:09 ONETIME ONE Departure - Departure Time of Disposition: 20:25 Disposition: Home, Self-Care 01 Condition: Good Clinical Impression: Atypical chest pain, Anxiety Referrals: PCP,None [Primary Care Provider] - Forms: ED Department Discharge Additional Instructions: Follow up in clinic with Talisha tomorrow as previously scheduled. Call with any questions. - Problem List & Annotations (1) Anxiety SNOMED Code(s): 71011134 Code(s): F41.9 - ANXIETY DISORDER, UNSPECIFIED Status: Acute Priority: High Current Visit: No Onset Date: 06/22/15 Annotation/Comment:: 09/21/15 - Anxiety, symptoms currently resolved. (2) Chest pain SNOMED Code(s): 36153241 Code(s): R07.9 - CHEST PAIN, UNSPECIFIED Status: Acute Priority: High Current Visit: No Onset Date: 02/26/15 Annotation/Comment:: 07/07/15 - into ER Qualifiers: Chest pain type: other chest pain Qualified Code(s): R07.89 - Other chest pain - Problem List Review Problem List Initiated/Reviewed/Updated: Yes - My Orders Last 24 Hours: My Active Orders 04/29/17 18:50 Cardiac Monitoring [RC] .As Directed Sodium Chloride 0.9% [Saline Flush] 10 ml FLUSH ASDIRECTED PRN Saline Lock Insert [OM.PC] Stat 04/29/17 18:51 EKG Documentation Completion [RC] ASDIRECTED Chest 1V Frontal [CR] Stat 04/29/17 19:30 B-TYPE NATRIURETIC PEPTIDE,BNP [CHEM] Stat CBC WITH AUTO DIFF [HEME] Stat COMPREHENSIVE METABOLIC PN,CMP [CHEM] Stat TROPONIN I [CHEM] Stat - Assessment/Plan Last 24 Hours: My Active Orders 04/29/17 18:50 Cardiac Monitoring [RC] .As Directed Sodium Chloride 0.9% [Saline Flush] 10 ml FLUSH ASDIRECTED PRN Saline Lock Insert [OM.PC] Stat 04/29/17 18:51 EKG Documentation Completion [RC] ASDIRECTED Chest 1V Frontal [CR] Stat 04/29/17 19:30 B-TYPE NATRIURETIC PEPTIDE,BNP [CHEM] Stat CBC WITH AUTO DIFF [HEME] Stat COMPREHENSIVE METABOLIC PN,CMP [CHEM] Stat TROPONIN I [CHEM] Stat Assessment:: chest pain: EKG, Saline lock, chest x-ray, CBC, CMP, troponin and BNP EKG NSR w premature complex Anxiety: Lorazapam 0.5 mg PO X 1 20:06 chest x-ray done and clear. Lab results pending. States chest pain is improved after the Ativan. 20:25 Discharge to home. Reviewed lab results. Troponin negative. BNP slightly elevated. Electrolytes normal. Liver enzymes, AST and alk phos slightly elevated. Continue with medications as at home. Continue with Ativan as needed. Plan: Discharge to home. RTC tomorrow for follow-up.
[2017-04-29] MEDS ORDERED: LORazepam 0.5 MG Tab PO ONE (19:08)
[2017-04-29 19:44] VITALS: BP 153/91
--- NOTE | 2017-04-30 08:47 | CR ---
DATE OF SERVICE: 04/29/17 CLINICAL DATA: Chest Pain AP PORTABLE CHEST: Comparison is made to a prior exam dated 02/20/17. The patient has taken a poor inspiration. The heart size is normal. The pulmonary vasculature does appear mildly prominent. This is most likely related to the poor inspiration. The lungs are clear. No pneumothorax. No pleural effusions. No areas of consolidation. No other significant findings. [id number] [facility]
== END 2017-04-29 20:25 | disposition home or self-care (01) ==
LOC: LB.ED 18:34
DX: F41.9 Anxiety disorder, unspecified (principal); R07.89 Other chest pain; I10 Essential (primary) hypertension; E78.00 Pure hypercholesterolemia, unspecified; K21.9 Gastro-esophageal reflux disease without esophagitis; F41.0 Panic disorder [episodic paroxysmal anxiety]; F31.9 Bipolar disorder, unspecified; E11.9 Type 2 diabetes mellitus without complications; F17.210 Nicotine dependence, cigarettes, uncomplicated; Z79.82 Long term (current) use of aspirin; Z79.899 Other long term (current) drug therapy; Z79.1 Long term (current) use of non-steroidal anti-inflammatories (NSAID)
CPT/HCPCS: 36415; 71010; 80053; 83880; 84484; 85025; 93005; 99285; A0425; A0429

== ENCOUNTER 2017-05-02 22:27 | Emergency (ER) | payer MEDICARE, MEDICAID ==
[~2017-05-02 22:27] MED LIST: Aspirin 81 MG Tab.Chew PO ONE; Sodium Chloride 0.9% 10 ML Syringe FLUSH PRN
[2017-05-02 23:14] VITALS: BP 122/69
--- NOTE | 2017-05-03 11:21 | EDM.PDOC ---
ED HPI GENERAL MEDICAL PROBLEM - General Chief Complaint: General Stated Complaint: chest pain Time Seen by Provider: 05/02/17 23:00 Source of Information: Reports: Patient History Limitations: Reports: No Limitations - History of Present Illness INITIAL COMMENTS - FREE TEXT/NARRATIVE: This is a 51yo F here for chest pain for the past 3-4 days. Patient was seen in the ER on 04/29 with the same symptoms after a relative called her and she got upset at they are blaming her for problems they are having. Patient recently was talking to her family again and they have been calling and she states the chest pain is getting worse again. Patient denies any sob, no fever, no weakness , no other health concerns. Onset: Gradual Duration: Day(s):, Waxing/Waning Location: Reports: Chest Quality: Reports: Ache Severity: Mild Improves with: Reports: None Worsens with: Reports: None Associated Symptoms: Reports: No Other Symptoms sternal chest pain Pain Score (Numeric/FACES): 5 - Related Data Allergies Allergy/AdvReac Type Severity Reaction Status Date / Time No Known Allergies Allergy Verified 05/02/17 23:07 Home Meds: Home Meds Aspirin [Aspirin] 81 tab PO DAILY 08/05/13 [History] Divalproex Sodium [Divalproex Sodium ER] 500 mg PO DAILY 08/05/13 [History] Omeprazole [Omeprazole] 20 mg PO DAILY 08/05/13 [History] Simvastatin [Simvastatin] 20 mg PO BEDTIME 08/05/13 [History] Metoprolol Succinate [Toprol XL] 25 mg PO DAILY tab.er 02/28/15 [Rx] Divalproex Sodium [Divalproex Sodium ER] 1,000 mg PO BEDTIME 08/12/15 [History] Meloxicam 15 mg PO DAILY 08/12/15 [History] Nitroglycerin [Nitrostat] 0.4 mg SL ASDIRECTED PRN 08/12/15 [History] Venlafaxine HCl [Venlafaxine HCl ER] 300 mg PO DAILY 08/12/15 [History] amLODIPine [Norvasc] 2.5 mg PO DAILY 08/18/15 [History] busPIRone HCl [Buspirone HCl] 0.5 tab PO TID 08/25/15 [History] ALPRAZolam [Alprazolam] 0.5 mg PO BID 03/31/16 [History] Albuterol Sulfate 2.5 mg IH QID 03/31/16 [History] Etodolac 400 mg PO DAILY 03/31/16 [History] Fluticasone/Salmeterol [Advair 250-50 Diskus] 1 puff PO DAILY 03/31/16 [History] predniSONE [Prednisone] 50 mg PO DAILY 03/31/16 [History] Past Medical History HEENT History: Reports: Impaired Vision Cardiovascular History: Reports: High Cholesterol, Hypertension, Other (See Below) Other Cardiovascular History: Raynaud phenomenon Respiratory History: Reports: COPD Other Respiratory History: Current active smoker-1ppd x20 years Gastrointestinal History: Reports: GERD Genitourinary History: Reports: UTI, Recurrent [employer] History: Reports: Other (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 - Infectious Disease History Infectious Disease History: Reports: Chicken Pox Social & Family History - Family History Family Medical History: Noncontributory HEENT: Reports: Impaired Vision Cardiac: Reports: Other (See Below) Other Cardiac Family History: Unknown Respiratory: Reports: Asthma GI: Reports: None : Reports: None OBGYN: Reports: None, Musculoskeletal: Reports: Arthritis Neurological: Reports: None Psychiatric: Reports: Anxiety, Bipolar, Depression, Panic Attack Endocrine/Metabolic: Reports: None Hematologic: Reports: None Immunologic: Reports: None - Tobacco Use Smoking Status *Q: Current Every Day Smoker Years of Tobacco use: 19 Packs/Tins Daily: 1 Used Tobacco, but Quit: Yes Month Tobacco Last Used: 11/2016 Second Hand Smoke Exposure: No - Caffeine Use Caffeine Use: Reports: None Other Caffeine Use: juice, gatorade - Alcohol Use Days Per Week of Alcohol Use: 0 - Recreational Drug Use Recreational Drug Use: No ED ROS GENERAL - Review of Systems Review Of Systems: ROS reveals no pertinent complaints other than HPI. ED EXAM, GENERAL - Physical Exam Exam: See Below Exam Limited By: No Limitations General Appearance: Alert, WD/WN, No Apparent Distress Eye Exam: Bilateral Eye: EOMI, PERRL Ears: Normal External Exam Nose: Normal Inspection Throat/Mouth: Normal Inspection Head: Atraumatic, Normocephalic Neck: Normal Inspection, Supple, Non-Tender Respiratory/Chest: No Respiratory Distress, Lungs Clear Cardiovascular: Normal Peripheral Pulses GI/Abdominal: Normal Bowel Sounds Back Exam: Normal Inspection Neurological: Alert, Oriented, CN II-XII Intact Course - Vital Signs Last Recorded V/S: Last Vital Signs Temp 37.1 C 05/02/17 22:53 Pulse 82 05/02/17 23:14 Resp 16 05/02/17 22:53 BP 122/69 05/02/17 23:14 Pulse Ox 98 05/02/17 23:14 - Orders/Labs/Meds Orders: Active Orders 24 hr Category Date Time Status EKG Documentation Completion [RC] ASDIRECTED Care 05/02/17 22:20 Active Chest 1V Frontal [CR] Stat Exams 05/02/17 22:20 Taken Peripheral IV Insertion Adult [OM.PC] Routine Oth 05/02/17 22:20 Ordered Labs: Laboratory Tests 05/02/17 05/02/17 05/02/17 Range/Units 22:30 22:30 22:30 WBC 6.9 (4.0-11.0) K/uL RBC 4.71 (3.80-5.80) M/uL Hgb 13.7 (11.5-16.5) g/dL Hct 41.0 (37.0-47.0) % MCV 87 (76-96) fL MCH 29.1 (27.0-32.0) pg MCHC 33.4 (31.0-35.0) g/dL RDW 14.7 (11.0-16.0) % Plt Count 183 D (150-500) K/uL MPV 8.5 (6.0-10.0) fL Neut % (Auto) 27.9 L (45.0-70.0) % Lymph % (Auto) 59.0 H (20.0-40.0) % [place] % (Auto) 11.1 H (3.0-10.0) % Eos % (Auto) 1.9 (1.0-5.0) % Baso % (Auto) 0.1 (0.0-0.5) % Neut # (Auto) 1.92 L (2.00-7.50) K/uL Lymph # (Auto) 4.05 H (1.50-4.00) K/uL [place] # (Auto) 0.76 (0.20-0.80) K/uL Eos # (Auto) 0.13 (0.04-0.40) K/uL Baso # (Auto) 0.01 L (0.02-0.10) K/uL PT 9.5 (9.0-11.5) sec INR 1.0 (1.0-3.5) Sodium 140 (136-145) mmol/L Potassium 3.2 L (3.5-5.1) mmol/L Chloride 102 (98-107) mmol/L Carbon Dioxide 28.2 (21.0-32.0) mmol/L Anion Gap 13.0 (5.0-15.0) mmol/L BUN 14 (8-26) mg/dL Creatinine 0.93 (0.55-1.02) mg/dL Est Cr Clr Drug Dosing 61.10 mL/min Estimated GFR (MDRD) > 60 (>60) MLS/MIN BUN/Creatinine Ratio 15.1 (6-25) Glucose 94 (74-100) mg/dL Calcium 8.7 (8.5-10.1) mg/dL Total Bilirubin 0.2 (0.0-1.0) mg/dL AST 48 H (15-37) U/L ALT 35 (12-78) U/L Alkaline Phosphatase 115 (46-116) U/L Troponin I < 0.017 (0.000-0.060) ng/mL B-Natriuretic Peptide 59 D (0-125) pg/mL Total Protein 7.5 (6.4-8.2) g/dL Albumin 3.1 L (3.4-5.0) g/dL Globulin 4.4 H (2.2-4.2) g/dL Albumin/Globulin Ratio 0.7 L (0.8-2.0) Meds: Medications Discontinued Medications Generic Name Dose Route Start Last Admin Trade Name Freq PRN Reason Stop Dose Admin Aspirin 324 mg 05/02/17 22:20 05/03/17 02:49 Aspirin PO 05/02/17 22:21 Not Given ONETIME ONE Sodium Chloride 10 ml 05/02/17 22:20 Saline Flush FLUSH ASDIRECTED PRN Keep Vein Open Departure - Departure Time of Disposition: 23:45 Disposition: Home, Self-Care 01 Condition: Good Clinical Impression: Chest pain, non-cardiac, Anxiety, Panic anxiety syndrome - Discharge Information Instructions: Panic Attacks, [id number], Nonspecific Chest Pain Referrals: PCP,None [Primary Care Provider] - Forms: ED Department Discharge Additional Instructions: Keep your appt next week with Talisha at the clinic. Follow up sooner if need be. Discussed management and coping with her stress. Discussed unplugging phone due to excess stress factors causing her chest pain. Discussed rest and relaxation and f/u in clinic. F/u if symptoms persist or worsen. - My Orders Last 24 Hours: My Active Orders 05/02/17 22:20 EKG Documentation Completion [RC] ASDIRECTED Chest 1V Frontal [CR] Stat Peripheral IV Insertion Adult [OM.PC] Routine - Assessment/Plan Last 24 Hours: My Active Orders 05/02/17 22:20 EKG Documentation Completion [RC] ASDIRECTED Chest 1V Frontal [CR] Stat Peripheral IV Insertion Adult [OM.PC] Routine
--- NOTE | 2017-05-04 15:47 | CR ---
DATE OF SERVICE: 05/02/17 CLINICAL DATA: Chest pain. AP PORTABLE CHEST: Comparison is made to a prior exam dated 04/29/2017. The heart size is normal. The lungs are mildly hyper penetrated but clear. IMPRESSION: No evidence of acute intrathoracic disease. [id number] [facility]
== END 2017-05-02 23:45 | disposition home or self-care (01) ==
LOC: LB.ED 22:27
DX: R07.2 Precordial pain (principal); F41.9 Anxiety disorder, unspecified; F41.0 Panic disorder [episodic paroxysmal anxiety]; F17.210 Nicotine dependence, cigarettes, uncomplicated; E11.9 Type 2 diabetes mellitus without complications; I10 Essential (primary) hypertension; J44.9 Chronic obstructive pulmonary disease, unspecified; Z79.82 Long term (current) use of aspirin; Z79.899 Other long term (current) drug therapy
CPT/HCPCS: 36415; 71010; 80053; 83880; 84484; 85025; 85610; 93005; 99285; 99285-25; A0425; A0429

== ENCOUNTER 2017-05-06 21:06 | Emergency (ER) | payer MEDICARE, MEDICAID ==
[2017-05-06] MEDS ORDERED: Nitroglycerin 0.4 MG Tab.SL ONE (21:40)
--- NOTE | 2017-05-06 22:23 | EDM.PDOC ---
ED HPI GENERAL MEDICAL PROBLEM - General Chief Complaint: Chest Pain Stated Complaint: Chest pain and SOB Time Seen by Provider: 05/06/17 21:30 Source of Information: Reports: Patient, EMS, RN History Limitations: Reports: No Limitations - History of Present Illness INITIAL COMMENTS - FREE TEXT/NARRATIVE: 51 yr female presents with chest pain. States she tried lying in recliner chair and pain persisted, so she called the ambulance. States she didn't try anything at home for the pain before she came in. States pain is midsternal and radiates into jaw and down arm. Onset: Today Onset Date: 05/06/17 - Related Data Allergies Allergy/AdvReac Type Severity Reaction Status Date / Time No Known Allergies Allergy Verified 05/02/17 23:07 Home Meds: Home Meds Aspirin [Aspirin] 81 tab PO DAILY 08/05/13 [History] Divalproex Sodium [Divalproex Sodium ER] 500 mg PO DAILY 08/05/13 [History] Omeprazole [Omeprazole] 20 mg PO DAILY 08/05/13 [History] Simvastatin [Simvastatin] 20 mg PO BEDTIME 08/05/13 [History] Metoprolol Succinate [Toprol XL] 25 mg PO DAILY tab.er 02/28/15 [Rx] Divalproex Sodium [Divalproex Sodium ER] 1,000 mg PO BEDTIME 08/12/15 [History] Meloxicam 15 mg PO DAILY 08/12/15 [History] Nitroglycerin [Nitrostat] 0.4 mg SL ASDIRECTED PRN 08/12/15 [History] Venlafaxine HCl [Venlafaxine HCl ER] 300 mg PO DAILY 08/12/15 [History] amLODIPine [Norvasc] 2.5 mg PO DAILY 08/18/15 [History] busPIRone HCl [Buspirone HCl] 0.5 tab PO TID 08/25/15 [History] ALPRAZolam [Alprazolam] 0.5 mg PO BID 03/31/16 [History] Albuterol Sulfate 2.5 mg IH QID 03/31/16 [History] Etodolac 400 mg PO DAILY 03/31/16 [History] Fluticasone/Salmeterol [Advair 250-50 Diskus] 1 puff PO DAILY 03/31/16 [History] predniSONE [Prednisone] 50 mg PO DAILY 03/31/16 [History] Past Medical History HEENT History: Reports: Impaired Vision Cardiovascular History: Reports: High Cholesterol, Hypertension, Other (See Below) Other Cardiovascular History: Raynaud phenomenon Respiratory History: Reports: COPD Other Respiratory History: Current active smoker-1ppd x20 years Gastrointestinal History: Reports: GERD Genitourinary History: Reports: UTI, Recurrent [employer] History: Reports: Other (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 - Infectious Disease History Infectious Disease History: Reports: Chicken Pox Social & Family History - Family History Family Medical History: Noncontributory HEENT: Reports: Impaired Vision Cardiac: Reports: Other (See Below) Other Cardiac Family History: Unknown Respiratory: Reports: Asthma GI: Reports: None : Reports: None OBGYN: Reports: None, Musculoskeletal: Reports: Arthritis Neurological: Reports: None Psychiatric: Reports: Anxiety, Bipolar, Depression, Panic Attack Endocrine/Metabolic: Reports: None Hematologic: Reports: None Immunologic: Reports: None - Tobacco Use Smoking Status *Q: Current Every Day Smoker Years of Tobacco use: 19 Packs/Tins Daily: 1 Used Tobacco, but Quit: Yes Month Tobacco Last Used: 11/2016 Second Hand Smoke Exposure: No - Caffeine Use Caffeine Use: Reports: None Other Caffeine Use: juice, gatorade - Alcohol Use Days Per Week of Alcohol Use: 0 - Recreational Drug Use Recreational Drug Use: No ED ROS GENERAL - Review of Systems Review Of Systems: ROS reveals no pertinent complaints other than HPI. ED EXAM, GENERAL - Physical Exam Exam: See Below Exam Limited By: No Limitations General Appearance: Alert, No Apparent Distress Ears: Hearing Grossly Normal Nose: Normal Inspection Throat/Mouth: Normal Inspection, Normal Lips, Normal Voice, No Airway Compromise Head: Atraumatic, Normocephalic Neck: Normal Inspection, Supple, Non-Tender Respiratory/Chest: No Respiratory Distress, Lungs Clear, Normal Breath Sounds Cardiovascular: Normal Peripheral Pulses, Regular Rate, Rhythm Peripheral Pulses: 2+: Dorsalis Pedis (L), Dorsalis Pedis (R) GI/Abdominal: Normal Bowel Sounds, Soft, Non-Tender Back Exam: Normal Inspection, Full Range of Motion Extremities: Normal Inspection, Non-Tender, No Pedal Edema, Normal Capillary Refill Neurological: Alert, Oriented, Normal Cognition Psychiatric: Normal Affect, Normal Mood Skin Exam: Warm, Dry, Normal Color Lymphatic: No Adenopathy Course - Vital Signs Last Recorded V/S: Last Vital Signs Temp 97 F 05/06/17 22:15 Pulse 84 05/06/17 22:30 Resp 20 05/06/17 22:30 BP 121/73 05/06/17 22:30 Pulse Ox 98 05/06/17 22:30 - Orders/Labs/Meds Orders: Active Orders 24 hr Category Date Time Status EKG Documentation Completion [RC] ASDIRECTED Care 05/06/17 21:43 Active Labs: Laboratory Tests 05/06/17 05/06/17 Range/Units 21:45 21:45 WBC 5.1 D (4.0-11.0) K/uL RBC 4.38 (3.80-5.80) M/uL Hgb 12.9 (11.5-16.5) g/dL Hct 38.3 (37.0-47.0) % MCV 87 (76-96) fL MCH 29.5 (27.0-32.0) pg MCHC 33.7 (31.0-35.0) g/dL RDW 14.7 (11.0-16.0) % Plt Count 157 (150-500) K/uL MPV 8.2 (6.0-10.0) fL Neut % (Auto) 35.9 L (45.0-70.0) % Lymph % (Auto) 51.1 H (20.0-40.0) % [place] % (Auto) 11.2 H (3.0-10.0) % Eos % (Auto) 1.6 (1.0-5.0) % Baso % (Auto) 0.2 (0.0-0.5) % Neut # (Auto) 1.84 L (2.00-7.50) K/uL Lymph # (Auto) 2.61 (1.50-4.00) K/uL [place] # (Auto) 0.57 (0.20-0.80) K/uL Eos # (Auto) 0.08 (0.04-0.40) K/uL Baso # (Auto) 0.01 L (0.02-0.10) K/uL Sodium 141 (136-145) mmol/L Potassium 3.7 (3.5-5.1) mmol/L Chloride 102 (98-107) mmol/L Carbon Dioxide 29.5 (21.0-32.0) mmol/L Anion Gap 13.2 (5.0-15.0) mmol/L BUN 17 D (8-26) mg/dL Creatinine 0.89 (0.55-1.02) mg/dL Est Cr Clr Drug Dosing TNP Estimated GFR (MDRD) > 60 (>60) MLS/MIN BUN/Creatinine Ratio 19.1 (6-25) Glucose 116 H (74-100) mg/dL Calcium 8.6 (8.5-10.1) mg/dL Total Bilirubin 0.2 (0.0-1.0) mg/dL AST 52 H (15-37) U/L ALT 29 (12-78) U/L Alkaline Phosphatase 119 H (46-116) U/L Troponin I < 0.017 (0.000-0.060) ng/mL Total Protein 7.1 (6.4-8.2) g/dL Albumin 3.0 L (3.4-5.0) g/dL Globulin 4.1 (2.2-4.2) g/dL Albumin/Globulin Ratio 0.7 L (0.8-2.0) Meds: Medications Discontinued Medications Generic Name Dose Route Start Last Admin Trade Name Freq PRN Reason Stop Dose Admin Nitroglycerin 0.4 mg 05/06/17 21:40 Nitrostat .ROUTE 05/06/17 21:41 .STK-MED ONE - Re-Assessments/Exams Free Text/Narrative Re-Assessment/Exam: 05/06/17 22:23 EKG reviewed, NSR noted. Chest pain relieved with nitro 1 tablet. Pt states she thinks she was out in the cold too long today with walking to store and to community center. Recommend not walking outside when weather so cold and get rides with [employer]. Lab results reviewed, Troponin normal. With her pain relieved with use of nitro, may need to add Isosorbide to medications. Will F/U on medications at clinic visit tomorrow for further work-up. Rest and take it easy tonight and return to clinic tomorrow. Departure - Departure Time of Disposition: 22:50 (Law enforcement transported pt to home.) Disposition: Home, Self-Care 01 Condition: Good Clinical Impression: Chest pain Qualifiers: Chest pain type: other chest pain Qualified Code(s): R07.89 - Other chest pain Referrals: PCP,None [Primary Care Provider] - Forms: ED Department Discharge Additional Instructions: Follow up in clinic in am. - My Orders Last 24 Hours: My Active Orders 05/06/17 21:43 EKG Documentation Completion [RC] ASDIRECTED - Assessment/Plan Last 24 Hours: My Active Orders 05/06/17 21:43 EKG Documentation Completion [RC] ASDIRECTED
[2017-05-06 22:46] VITALS: BP 121/73
== END 2017-05-06 22:38 | disposition home or self-care (01) ==
LOC: LB.ED 21:06
DX: R07.89 Other chest pain (principal); E78.00 Pure hypercholesterolemia, unspecified; I10 Essential (primary) hypertension; J44.9 Chronic obstructive pulmonary disease, unspecified; K21.9 Gastro-esophageal reflux disease without esophagitis; E11.9 Type 2 diabetes mellitus without complications; F17.210 Nicotine dependence, cigarettes, uncomplicated; Z79.899 Other long term (current) drug therapy; Z79.82 Long term (current) use of aspirin
CPT/HCPCS: 36415; 80053; 84484; 85025; 93005; 99285; A0425; A0429; A9270; 99284

== ENCOUNTER 2017-05-08 20:21 | Emergency (ER) | payer MEDICARE, MEDICAID ==
[2017-05-08 21:38] VITALS: BP 126/85
[2017-05-08] MEDS ORDERED: Ketorolac 60 MG/2 ML SDV IM ONE (21:44)
--- NOTE | 2017-05-09 00:01 | ER ---
HISTORY OF PRESENT ILLNESS: A 51-year-old lady who comes in by ambulance this evening with complaints of chest pain involving the sternal area. She states it just started this afternoon. She rates the pain at about 5/10. She states it hurts when she takes a deep breath or coughs. She was given aspirin and one nitroglycerin in the ambulance, and she thinks it has helped a little bit. The patient has not been sick recently. She has not had any falls or injuries. The patient has not had any history of coronary artery disease. PAST MEDICAL HISTORY: Past medical history does include multiple episodes of chest pain and anxiety. The patient tells me that she has family members that are calling her, and they are stressing her somewhat over the holidays. OBJECTIVE: GENERAL APPEARANCE: The patient is awake and alert, in no obvious distress. VITAL SIGNS: Reviewed. She is afebrile. Blood pressure 126/85, pulse is 87, O2 sats are 99%. HEENT: Oral mucous membranes are moist. Tonsils not enlarged or injected. Pharynx not inflamed. NECK: Supple. LUNGS: Clear to auscultation. Deep breathing does induce pain along the sternum slightly, but the patient is able to take a good deep breath. I can reproduce pain with palpation along the sternal border bilaterally from about the third intercostal costal space down to the epigastric area. CARDIAC: Heart sounds distinct without murmurs. ABDOMEN: Soft. There is minimal discomfort I should say with palpation. Bowel sounds are present. LAB AND X-RAY STUDIES: An EKG shows normal sinus rhythm. Labs today include a CBC which is normal. CMP shows an elevated AST. Troponin is normal. Alkaline phosphatase is also elevated. DIAGNOSIS: Chest wall pain, noncardiac. TREATMENT PLAN: The patient will be given Toradol 60 mg IM. She also asked for a sandwich when she was here which she ate without any discomfort or problems. The patient will start using ibuprofen tomorrow morning as needed 800 mg every 8 hours for any recurrence of the chest wall pain, and I do want the patient to follow up with her primary care provider as soon as possible for recheck. She tells me this is Talisha De La Fuente. The patient has no further questions and is comfortable at this time telling me she just has a little bit of discomfort when she takes a deep breath. CRS/MODL /[id number]
== END 2017-05-08 22:27 | disposition home or self-care (01) ==
LOC: LB.ED 20:21
DX: R07.89 Other chest pain (principal)
CPT/HCPCS: 36415; 80053; 84484; 85025; 93005; 96372; 99285; A0425; A0429; J1885; 99284

== ENCOUNTER 2017-05-12 19:31 | Emergency (ER) | payer MEDICARE, MEDICAID ==
--- NOTE | 2017-05-12 19:43 | EDM.PDOC ---
ED HPI GENERAL MEDICAL PROBLEM - General Chief Complaint: Chest Pain Stated Complaint: CHEST PAIN Time Seen by Provider: 05/12/17 19:35 Source of Information: Reports: Patient, RN History Limitations: Reports: No Limitations - History of Present Illness INITIAL COMMENTS - FREE TEXT/NARRATIVE: 51 yr female presents with shortness of breath and some mid sternal chest pain. States she has been in repeatedly for this and wishes she could have some testing done to find out what is wrong. She is scheduled for a stress test on . States she is upset with people in her housing unit upset with her using the ambulance so much and states if she continued to have pain she wouldn' t come in if certain provider was in. Pt is alert and upset and some wheezing noted. After have oxygen on for 5 minutes her pain was alleviated. Onset: Today Onset Date: 05/12/17 Onset Time: 17:00 Location: Reports: Chest Quality: Reports: Pressure Severity: Moderate Improves with: Reports: Rest, Other (oxygen) Associated Symptoms: Reports: Chest Pain, Shortness of Breath - Related Data Allergies Allergy/AdvReac Type Severity Reaction Status Date / Time No Known Allergies Allergy Verified 05/12/17 20:41 Home Meds: Home Meds Aspirin [Aspirin] 81 tab PO DAILY 08/05/13 [History] Divalproex Sodium [Divalproex Sodium ER] 500 mg PO DAILY 08/05/13 [History] Omeprazole [Omeprazole] 20 mg PO ACBREAKFAST 08/05/13 [History] Simvastatin [Simvastatin] 20 mg PO BEDTIME 08/05/13 [History] Metoprolol Succinate [Toprol XL] 25 mg PO DAILY tab.er 02/28/15 [Rx] Divalproex Sodium [Divalproex Sodium ER] 1,000 mg PO BEDTIME 08/12/15 [History] Meloxicam 15 mg PO DAILY 08/12/15 [History] Nitroglycerin [Nitrostat] 0.4 mg SL ASDIRECTED PRN 08/12/15 [History] Venlafaxine HCl [Venlafaxine HCl ER] 300 mg PO DAILY 08/12/15 [History] amLODIPine [Norvasc] 2.5 mg PO DAILY 08/18/15 [History] busPIRone HCl [Buspirone HCl] 0.5 tab PO TID 08/25/15 [History] ALPRAZolam [Alprazolam] 0.5 mg PO BID 03/31/16 [History] Albuterol Sulfate 2.5 mg IH QID PRN 03/31/16 [History] Etodolac 400 mg PO DAILY 03/31/16 [History] Fluticasone/Salmeterol [Advair 250-50 Diskus] 1 puff PO DAILY 03/31/16 [History] predniSONE [Prednisone] 50 mg PO DAILY 03/31/16 [History] Past Medical History HEENT History: Reports: Impaired Vision Cardiovascular History: Reports: Angina, High Cholesterol, Hypertension, Other ( See Below) Other Cardiovascular History: Raynaud phenomenon Respiratory History: Reports: COPD Other Respiratory History: Current active smoker-1ppd x20 years Gastrointestinal History: Reports: GERD Genitourinary History: Reports: UTI, Recurrent 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 - Infectious Disease History Infectious Disease History: Reports: Chicken Pox Social & Family History - Family History Family Medical History: Noncontributory HEENT: Reports: Impaired Vision Cardiac: Reports: Other (See Below) Other Cardiac Family History: Unknown Respiratory: Reports: Asthma GI: Reports: None : Reports: None OBGYN: Reports: None, Musculoskeletal: Reports: Arthritis Neurological: Reports: None Psychiatric: Reports: Anxiety, Bipolar, Depression, Panic Attack Endocrine/Metabolic: Reports: None Hematologic: Reports: None Immunologic: Reports: None - Tobacco Use Smoking Status *Q: Current Every Day Smoker Years of Tobacco use: 15 Packs/Tins Daily: 1 Used Tobacco, but Quit: Yes Month Tobacco Last Used: 11/2016 Second Hand Smoke Exposure: No - Caffeine Use Caffeine Use: Reports: None Other Caffeine Use: juice, gatorade - Alcohol Use Days Per Week of Alcohol Use: 0 - Recreational Drug Use Recreational Drug Use: No ED ROS GENERAL - Review of Systems Review Of Systems: See Below Constitutional: Reports: No Symptoms HEENT: Reports: No Symptoms Respiratory: Reports: Shortness of Breath Cardiovascular: Reports: Chest Pain GI/Abdominal: Reports: Abdominal Pain, Nausea Musculoskeletal: Reports: No Symptoms Skin: Reports: No Symptoms Neurological: Reports: No Symptoms Psychiatric: Reports: Anxiety ED EXAM, GENERAL - Physical Exam Exam: See Below Exam Limited By: No Limitations General Appearance: Alert, No Apparent Distress Ears: Hearing Grossly Normal Throat/Mouth: Normal Inspection, Normal Lips, Normal Voice Head: Atraumatic, Normocephalic Neck: Supple, Non-Tender Respiratory/Chest: Decreased Breath Sounds (bases), Wheezing (audible intermittently) Cardiovascular: Regular Rate, Rhythm, No Edema Peripheral Pulses: 2+: Dorsalis Pedis (L), Dorsalis Pedis (R) GI/Abdominal: Normal Bowel Sounds, Soft, Non-Tender Extremities: Normal Inspection, Non-Tender, No Pedal Edema Neurological: Alert, Oriented, Normal Cognition Psychiatric: Anxious Skin Exam: Warm, Dry, Normal Color, Other (abrasions to shins bilaterally, right one is dry and scabbed, the left lou has small amount of blood to site) Course - Vital Signs Last Recorded V/S: Last Vital Signs Temp 97.2 F 05/12/17 20:45 Pulse 86 05/12/17 20:45 Resp BP 142/96 H 05/12/17 20:45 Pulse Ox 99 05/12/17 20:51 - Orders/Labs/Meds Orders: Active Orders 24 hr Category Date Time Status EKG Documentation Completion [RC] ASDIRECTED Care 05/12/17 19:36 Active Chest 2V [CR] Stat Exams 05/12/17 19:36 Ordered Labs: Laboratory Tests 05/12/17 05/12/17 Range/Units 19:53 19:53 WBC 6.1 (4.0-11.0) K/uL RBC 4.95 (3.80-5.80) M/uL Hgb 14.4 (11.5-16.5) g/dL Hct 42.9 (37.0-47.0) % MCV 87 (76-96) fL MCH 29.1 (27.0-32.0) pg MCHC 33.6 (31.0-35.0) g/dL RDW 14.5 (11.0-16.0) % Plt Count 146 L (150-500) K/uL MPV 8.8 (6.0-10.0) fL Neut % (Auto) 31.3 L (45.0-70.0) % Lymph % (Auto) 55.6 H (20.0-40.0) % [place] % (Auto) 12.2 H (3.0-10.0) % Eos % (Auto) 0.7 L (1.0-5.0) % Baso % (Auto) 0.2 (0.0-0.5) % Neut # (Auto) 1.92 L (2.00-7.50) K/uL Lymph # (Auto) 3.41 (1.50-4.00) K/uL [place] # (Auto) 0.75 (0.20-0.80) K/uL Eos # (Auto) 0.04 (0.04-0.40) K/uL Baso # (Auto) 0.01 L (0.02-0.10) K/uL Sodium 142 (136-145) mmol/L Potassium 3.4 L (3.5-5.1) mmol/L Chloride 101 (98-107) mmol/L Carbon Dioxide 32.2 H (21.0-32.0) mmol/L Anion Gap 12.2 (5.0-15.0) mmol/L BUN 19 (8-26) mg/dL Creatinine 1.06 H (0.55-1.02) mg/dL Est Cr Clr Drug Dosing TNP Estimated GFR (MDRD) 54 L (>60) MLS/MIN BUN/Creatinine Ratio 17.9 (6-25) Glucose 114 H D (74-100) mg/dL Calcium 8.9 (8.5-10.1) mg/dL Total Bilirubin 0.3 (0.0-1.0) mg/dL AST 51 H (15-37) U/L ALT 32 (12-78) U/L Alkaline Phosphatase 106 (46-116) U/L Total Protein 7.8 (6.4-8.2) g/dL Albumin 3.3 L (3.4-5.0) g/dL Globulin 4.5 H (2.2-4.2) g/dL Albumin/Globulin Ratio 0.7 L (0.8-2.0) - Re-Assessments/Exams Free Text/Narrative Re-Assessment/Exam: 05/12/17 21:11 Lab work normal. Discharge to home. Pt is scheduled for a stress test later this month. Departure - Departure Time of Disposition: 21:37 Disposition: Home, Self-Care 01 Condition: Good Clinical Impression: Anxiety attack Instructions: Nonspecific Chest Pain, [id number] Referrals: PCP,None [Primary Care Provider] - Forms: ED Department Discharge Additional Instructions: Take anxiety medication 1 tablet when getting home. contact financial services officer worker in am and discuss situation. - My Orders Last 24 Hours: My Active Orders 05/12/17 19:36 EKG Documentation Completion [RC] ASDIRECTED Chest 2V [CR] Stat - Assessment/Plan Last 24 Hours: My Active Orders 05/12/17 19:36 EKG Documentation Completion [RC] ASDIRECTED Chest 2V [CR] Stat
[2017-05-12 20:49] VITALS: BP 142/96
== END 2017-05-12 21:40 | disposition home or self-care (01) ==
LOC: LB.ED 19:31
DX: F41.9 Anxiety disorder, unspecified (principal); S80.812A Abrasion, left lower leg, initial encounter; S80.811A Abrasion, right lower leg, initial encounter; F17.210 Nicotine dependence, cigarettes, uncomplicated; F31.9 Bipolar disorder, unspecified; I10 Essential (primary) hypertension; E78.00 Pure hypercholesterolemia, unspecified; K21.9 Gastro-esophageal reflux disease without esophagitis; E11.9 Type 2 diabetes mellitus without complications; Z79.82 Long term (current) use of aspirin; Z79.899 Other long term (current) drug therapy; X58.XXXA Exposure to other specified factors, initial encounter
CPT/HCPCS: 36415; 80053; 85025; 93005; 99285; A0425; A0429; 99284

== ENCOUNTER 2017-08-26 20:26 | Emergency (ER) | payer MEDICARE, MEDICAID ==
[2017-08-26 21:46] VITALS: BP 114/70
[2017-08-26] MEDS: Ketorolac 60 MG/2 ML SDV IM ONE (22:05)
[2017-08-26] MEDS: Ketorolac 60 MG/2 ML SDV ONE (22:05)
--- NOTE | 2017-08-27 01:15 | ER ---
DATE OF SERVICE: 08/26/2017 HISTORY OF PRESENT ILLNESS: A 51-year-old lady who comes in by ambulance. The patient was at home. She was standing in the kitchen getting ready to do dishes when she states she suddenly fell backwards. She states she felt a little bit dizzy and the next thing she knows she was lying on the floor. She is complaining of headache involving the back of her head as well as the back of her neck. There was no bleeding at the site. The patient denies any other areas of pain. She states that she was feeling well earlier in the day. OBJECTIVE: GENERAL APPEARANCE: The patient is in no respiratory distress. She is wearing a C-collar applied by EMS. GCS is 15. VITAL SIGNS: Reviewed. Blood pressure 138/75, she is afebrile, pulse is 93, respirations 16, O2 saturations are 98% on room air. EYES: Pupils equal, round, and reactive to light. EOMs are intact. HEAD: Normocephalic. I carefully removed the C-collar temporarily and with palpation of the back of the patient's head there is no lump or mass. There is no break in the skin. She also has some pain down the posterior aspect of midline of the cervical spine. Skin is warm and dry in this area without swelling or discoloration. Cranial nerves 2 thru 12 are intact. LUNGS: Clear. CARDIAC: Heart sounds distinct without murmurs. SKIN: Warm and dry. LAB AND X-RAY: Head CT is obtained without contrast and is negative. CT of the cervical spine also is negative for any acute findings. Labs today include a CBC, which is normal. Basic metabolic panel shows a glucose of 103. The patient has been rating her pain at 5/10. DIAGNOSIS: Fall with closed head injury and neck pain with negative findings. TREATMENT PLAN: The patient was given a sandwich to eat here. She also was given Toradol 60 mg IM. We monitored her for about 30 minutes after which she was up and walking around, going to the bathroom. The patient states that she felt a little dizzy when she first stood up and started walking, but this resolved and she was able to walk to the bathroom and back without any further discomfort or symptoms. At this point, the patient will be discharged home. She is to use Tylenol or ibuprofen as needed for pain. She can apply ice pack to the back of her head and back of her neck as needed and followup should be as needed over the next couple of days. If her symptoms recur or persist, she is to call the clinic tomorrow to set up an appointment for recheck. The patient is agreeable with the treatment plan and has no further questions. MONSTER/FAY /[id number] EZ
--- NOTE | 2017-08-27 10:12 | CT ---
DATE OF SERVICE: 08/26/17 CLINICAL DATA: Fall with head and neck pain UNENHANCED BRAIN CT: Multislice acquisition through the brain without IV contrast was performed. No priors. There is diffuse cerebral atrophy. There are periventricular lucencies bilaterally consistent with small vessel ischemic change. There are lucencies in the basal ganglia bilaterally consistent with old lacunar infarcts. No masses or mass effect. No intracranial hemorrhage. No evidence of acute or subacute infarct. No osseous abnormalities. IMPRESSION: No acute intracranial abnormalities. [id number] [facility]
--- NOTE | 2017-08-27 10:17 | CT ---
DATE OF SERVICE: 08/26/17 CLINICAL DATA: fall with head and neck pain. CERVICAL SPINE CT: Multislice axial acquisition was performed. Axial images and sagittal and coronal reformations are reviewed. There is reversal of the normal cervical lordosis on the sagittal reformations. The vertebral are of average height and in good alignment. No acute fracture or dislocation. No lytic or blastic bone lesions. There is degenerative disc disease at multiple levels with disc space narrowing at the C5-6 level. There are degenerative changes involving the atlantoaxial articulation. There is facet joint hypertrophy at multiple levels. The soft tissues are unremarkable. The visualized lung apices are clear. IMPRESSION: No acute abnormalities. [id number] [facility]
== END 2017-08-26 22:50 | disposition home or self-care (01) ==
LOC: LB.ED 20:26
DX: S09.90XA Unspecified injury of head, initial encounter (principal); M54.2 Cervicalgia; W19.XXXA Unspecified fall, initial encounter; Y92.000 Kitchen of unspecified non-institutional (private) residence as the place of occurrence of the external cause
CPT/HCPCS: 36415; 70450; 72125; 80048; 85025; 99283; A0425; A0429; J1885

== ENCOUNTER 2017-09-25 19:32 | Emergency (ER) | payer MEDICARE, MEDICAID ==
[2017-09-25] MEDS ORDERED: Aspirin 81 MG Tab.Chew PO ONE (20:10)
[2017-09-25] MEDS ORDERED: LORazepam 1 MG Tab PO ONE (20:10)
[2017-09-25] MEDS ORDERED: Nitroglycerin 0.4 MG Tab.SL SL ONE (20:11)
[2017-09-25 23:09] VITALS: BP 130/70
--- NOTE | 2017-09-25 23:27 | ER ---
DATE OF SERVICE: 09/25/2017 HPI: A 52-year-old lady who comes in by ambulance with complaint of chest pain that she has had all day. She tells me that she currently rates her pain at 7/10. There is pain also radiating into the left shoulder and left upper arm. The patient has not been nauseated. She denies any falls or injuries. She states that she has been very stressed lately. She has had problems with a co-worker last Friday. She got into an argument with the co-worker and ended up in a panic attack. She states she was seen in [place] for this. She states that she still feels stressed, but she is concerned about her heart. The patient does not have any history of coronary artery disease, but she has had multiple episodes of chest pain that she has been seen for. OBJECTIVE: GENERAL APPEARANCE: The patient is awake and alert. No respiratory distress. VITAL SIGNS: Reviewed. Blood pressure 148/80, pulse is 82, respirations are 20 , O2 sats are 99%. Physical exam, oral mucous membranes moist. Tonsils not enlarged or injected. Pharynx not inflamed. NECK: Supple. LUNGS: Clear. CARDIAC: Heart sounds distinct. S1, S2 present. Regular rate. No murmurs. ABDOMEN: Soft, protuberant, and nontender to palpation. SKIN: Warm and dry. INITIAL TREATMENT PLAN: Four baby aspirin were given to the patient p.o. An EKG was obtained showing a normal sinus rhythm. At this point, I gave the patient Ativan 2 mg p.o. Labs include a CBC which is normal. CMP is also unremarkable. Troponin is negative. DIAGNOSIS: Anxiety. TREATMENT PLAN: At this point, the patient's pain is 0. She was given some food, which she ate here and she will be discharged to go home. She also does take alprazolam as one of her home medications. She states she has been taking it twice a day. I advised the patient to increase that right now to 3 times a day and a followup should be next week with her primary care provider as needed. Follow up sooner of course p.r.n. if her condition should get worse. CRS/MODL /[id number]
--- NOTE | 2017-09-27 03:01 | ER ---
ADDENDUM: In regard to treatment plan, I was under the impression the patient will take an alprazolam b.i.d. She told me that she was taking this, it turns out this was indeed hydroxyzine 50 mg that she can take t.i.d. p.r.n. Therefore, we will switch the order to hydroxyzine 50 mg t.i.d. p.r.n. I advised her to take it 3 times a day for a couple of days and then go to p.r.n. Alprazolam is no longer being used. CRS/MODL /[id number]
== END 2017-09-25 21:30 | disposition home or self-care (01) ==
LOC: LB.ED 19:32
DX: F41.9 Anxiety disorder, unspecified (principal)
CPT/HCPCS: 36415; 80053; 84484; 85025; 93005; 99284-25; A0425; A0429; A9270-GY

== ENCOUNTER 2017-10-07 19:31 | Emergency (ER) | payer MEDICARE, MEDICAID ==
[2017-10-07 19:59] VITALS: BP 143/55
[2017-10-07] MEDS ORDERED: Albuterol/Ipratropium 3.0-0.5 MG/3 ML Neb Soln NEB ONE (20:06)
[2017-10-07] MEDS ORDERED: Albuterol/Ipratropium 3.0-0.5 MG/3 ML Neb Soln ONE ×2 (20:10→20:11)
--- NOTE | 2017-10-08 00:07 | ER ---
DATE OF SERVICE: 10/07/2017 HPI: A 52-year-old female who comes in by ambulance after complaining about it being too hot in her apartment today. She does not have air conditioning. She does have one fan. She states that she decided to try to go for a walk and she did not feel good after this. She started coughing on one occasion and coughed up a little bit of blood she tells us. The patient has not been vomiting. She tells me that she does not like to drink water. She usually drinks juice, and she has not had anything to eat since earlier today several hours ago. She is also concerned about a neighbor in her apartment building whom she is not getting along with. OBJECTIVE: GENERAL APPEARANCE: The patient is awake. She is in no respiratory distress, but I can hear some audible end-expiratory wheezes present. VITAL SIGNS: Reviewed. Blood pressure 143/55, pulse is 100, temp is afebrile at 98.3, O2 sats are at 98%, respiratory rate 12. Physical exam, lung exam, the patient does have scattered end- expiratory wheezes. CARDIAC: Heart sounds distinct without murmurs. SKIN: Warm and dry. DIAGNOSIS: Heat exhaustion, mild in nature. TREATMENT PLAN IN ER: We had the patient drinking fluids. She did not want water, therefore, she was drinking juice for us, and she was able to take in a couple of large containers approximately a half a liter I believe. Ice packs were applied to the forehead area as well as the axillary areas, and the patient stated that she did feel better. After observing her for about an hour, she was able to get up and void and go to the bathroom and come back under her own power. She states that she just feels a little weak. DIAGNOSIS: Heat exhaustion. TREATMENT PLAN: The patient will be discharged to go home. I advised her that she needs to drink fluids. If she does not want water, she needs to drink something like juice and try to stay away from carbonated beverages. She is to move the fan in her apartment to her bedroom at night and put it in front of her chair during the day, so she can have the fan blowing most of the time on her, to keep the windows open at night, to pull the change during the day. I advised the patient that she feels like she is overheating. She also should take a cool shower once or twice a day. When she came in by ambulance, she had on a sweatshirt over the top of the T-shirt. I advised patient that she needs to not wear extra clothing to let the heat escape. The patient agrees with the treatment plan and has no further questions. MONSTER/FAY /[id number] EZ
== END 2017-10-07 20:55 | disposition home or self-care (01) ==
LOC: LB.ED 19:31
DX: T67.5XXA Heat exhaustion, unspecified, initial encounter (principal)
CPT/HCPCS: 99284; A0425; A0429; J7620; 99283

== ENCOUNTER 2017-10-14 21:21 | Emergency (ER) | payer MEDICARE, MEDICAID ==
[2017-10-14 23:24] VITALS: BP 132/83
--- NOTE | 2017-10-15 08:49 | EDM.PDOC ---
ED HPI GENERAL MEDICAL PROBLEM - General Chief Complaint: General Stated Complaint: CHEST PAIN Time Seen by Provider: 10/14/17 21:25 Source of Information: Reports: Patient History Limitations: Reports: No Limitations - History of Present Illness INITIAL COMMENTS - FREE TEXT/NARRATIVE: Pt presented by EMS ambulance to emergency room for mid chest pain. Apparently she has been having chest pain all day today. Hurts to take deep breath and also if she put pressure on the midchest. Pt was trying to lye down to go to bed and felt sharp chest pain and started to feel anxious and call EMS. No sweating or weakness. No palpations, no shortness or breath. No nausea or vomiting. No fever, chills or cough. According to patient she almost had a fall in the bath tub and she tried to prevent the fall by hold on to the grab bars and felt some pain in her chest, but was fine, when she woke up next day she started noticing the pain in her chest and it got worse tonight. Pt has not tried any OTC medications for her pain. Onset Date: 10/13/17 Duration: Intermittent Location: Reports: Chest Quality: Reports: Sharp Severity: Moderate Improves with: Reports: None Worsens with: Reports: Breathing, Movement Associated Symptoms: Reports: Chest Pain. Denies: Confusion, Cough, Diaphoresis , Fever/Chills, Headaches, Nausea/Vomiting, Rash, Seizure, Shortness of Breath, Syncope, Weakness Chest Pain Score (Numeric/FACES): 7 - Related Data Allergies Allergy/AdvReac Type Severity Reaction Status Date / Time No Known Allergies Allergy Verified 10/14/17 23:19 Home Meds: Home Meds Aspirin 81 tab PO DAILY 08/05/13 [History] Divalproex Sodium [Divalproex Sodium ER] 500 mg PO DAILY 08/05/13 [History] Omeprazole 20 mg PO ACBREAKFAST 08/05/13 [History] Simvastatin 20 mg PO BEDTIME 08/05/13 [History] Metoprolol Succinate [Toprol XL] 25 mg PO DAILY tab.er 02/28/15 [Rx] Divalproex Sodium [Divalproex Sodium ER] 1,000 mg PO BEDTIME 08/12/15 [History] Meloxicam 15 mg PO DAILY 08/12/15 [History] Nitroglycerin [Nitrostat] 0.4 mg SL ASDIRECTED PRN 08/12/15 [History] Venlafaxine HCl [Venlafaxine HCl ER] 300 mg PO DAILY 08/12/15 [History] amLODIPine [Norvasc] 2.5 mg PO DAILY 08/18/15 [History] busPIRone HCl [Buspirone HCl] 0.5 tab PO TID 08/25/15 [History] ALPRAZolam [Alprazolam] 0.5 mg PO BID 03/31/16 [History] Albuterol Sulfate 2.5 mg IH QID PRN 03/31/16 [History] Etodolac 400 mg PO DAILY 03/31/16 [History] Fluticasone/Salmeterol [Advair 250-50 Diskus] 1 puff PO DAILY 03/31/16 [History] predniSONE [Prednisone] 50 mg PO DAILY 03/31/16 [History] Past Medical History HEENT History: Reports: Impaired Vision Cardiovascular History: Reports: Angina, High Cholesterol, Hypertension, Other ( See Below) Other Cardiovascular History: Raynaud phenomenon Respiratory History: Reports: COPD Other Respiratory History: Current active smoker-1ppd x20 years Gastrointestinal History: Reports: GERD Genitourinary History: Reports: UTI, Recurrent MOTOR 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 Neurological History: Reports: Migraines Psychiatric History: Reports: Anxiety, Bipolar, Depression, Panic Attack, Schizophrenia Endocrine/Metabolic History: Reports: Diabetes, Type II Other Endocrine/Metabolic History: pt denies having diabetes 08/26/17 Dermatologic History: Reports: Other (See Below) Other Dermatologic History: Chronic open area present to breast folds - Infectious Disease History Infectious Disease History: Reports: Chicken Pox - Past Surgical History HEENT Surgical History: Reports: Adenoidectomy, Tonsillectomy Other HEENT Surgeries/Procedures: at about 11 year old had tonsils and adenoids removed Cardiovascular Surgical History: Reports: Coronary Artery Stent, Other (See Below) Other Cardiovascular Surgeries/Procedures: pt states she has stents put in her heart in jun GI Surgical History: Reports: Colonoscopy Social & Family History - Family History Family Medical History: Noncontributory HEENT: Reports: Impaired Vision Cardiac: Reports: Other (See Below) Other Cardiac Family History: Unknown Respiratory: Reports: Asthma GI: Reports: None : Reports: None OBGYN: Reports: None, Musculoskeletal: Reports: Arthritis Neurological: Reports: None Psychiatric: Reports: Anxiety, Bipolar, Depression, Panic Attack Endocrine/Metabolic: Reports: None Hematologic: Reports: None Immunologic: Reports: None - Tobacco Use Smoking Status *Q: Current Every Day Smoker Years of Tobacco use: 35 Packs/Tins Daily: 1 Used Tobacco, but Quit: No Second Hand Smoke Exposure: No - Caffeine Use Caffeine Use: Reports: Coffee, Soda Other Caffeine Use: 2 bottles a day - Recreational Drug Use Recreational Drug Use: No ED ROS GENERAL - Review of Systems Review Of Systems: See Below Constitutional: Denies: Fever, Chills, Malaise, Weakness, Fatigue, Night Sweats , Diaphoresis HEENT: Denies: Vision Change Respiratory: Reports: Pleuritic Chest Pain. Denies: Shortness of Breath, Wheezing, Cough, Sputum Cardiovascular: Reports: Chest Pain. Denies: Lightheadedness GI/Abdominal: Denies: Abdominal Pain, Constipation, Diarrhea, Nausea, Vomiting : Denies: Dysuria, Flank Pain Musculoskeletal: Denies: Joint Pain, Joint Swelling Skin: Denies: Bruising, Pruritis, Rash Neurological: Denies: Confusion Psychiatric: Reports: Anxiety. Denies: Agitation, Confusion ED EXAM, GENERAL - Physical Exam Exam: See Below Exam Limited By: No Limitations General Appearance: Alert, WD/WN, No Apparent Distress Eye Exam: Bilateral Eye: EOMI, PERRL Ears: Normal External Exam, Normal Canal, Hearing Grossly Normal, Normal TMs Ear Exam: Bilateral Ear: Auricle Normal, Canal Normal, TM normal Nose: Normal Inspection, Normal Mucosa, No Blood Throat/Mouth: Normal Inspection, Normal Lips, Normal Teeth, Normal Gums, Normal Oropharynx, Normal Voice, No Airway Compromise Head: Atraumatic, Normocephalic Neck: Normal Inspection, Supple, Non-Tender, Full Range of Motion Respiratory/Chest: No Respiratory Distress, Lungs Clear, Normal Breath Sounds, No Accessory Muscle Use, Other (pt is tender over hte sternum, more so over the costochondral junction of 3,4 and 5th ribs.) Cardiovascular: Normal Peripheral Pulses, Regular Rate, Rhythm, No Edema, No Gallop, No JVD, No Murmur, No Rub EKG INTERPRETATION EKG Date: 10/14/17 Rhythm: NSR [place]: Normal P-Wave: Present QRS: Normal ST-T: Normal Course - Vital Signs Text/Narrative:: Pt reassured that her EKG is in NSR. Also she has elicitable tenderness over the sterno-chondral junctions of the anterior chest. Pt reassured that she has strained the joint when she tried to prevent a fall on 10/13/17. Advised deep breathing exercises. Intermittent heat to the chest wall 3-4 times daily. Motrin 600mg 3 times daily with food for 3-5 days. If symptoms not better in 1 wk, followup in clinic with her primary care provider. Last Recorded V/S: Last Vital Signs Temp 98.2 F 10/14/17 21:30 Pulse 92 10/14/17 21:30 Resp 16 10/14/17 21:30 BP 132/83 10/14/17 21:30 Pulse Ox 95 10/14/17 21:30 - Orders/Labs/Meds Orders: Active Orders 24 hr Category Date Time Status EKG Documentation Completion [RC] ASDIRECTED Care 10/14/17 21:45 Active Departure - Departure Time of Disposition: 22:00 Disposition: Home, Self-Care 01 Condition: Good Clinical Impression: Costochondritis, acute - Discharge Information Forms: ED Department Discharge Additional Instructions: Activity and diet as tolerated. Drink plenty of fluids (water) and get plenty of rest. Be sure to take all your regularly prescribed medications. May apply a warm compress to tender area 4 times daily for next several days. 400-600mg Motrin (Ibuprofen) up to 3 times daily as needed for pain. Follow up with regular provider if needed. Call with any questions. - Problem List & Annotations (1) Costochondritis, acute SNOMED Code(s): 46963671, 37059197 Code(s): M94.0 - CHONDROCOSTAL JUNCTION SYNDROME [TIETZE] Status: Acute - Problem List Review Problem List Initiated/Reviewed/Updated: Yes - My Orders Last 24 Hours: My Active Orders 10/14/17 21:45 EKG Documentation Completion [RC] ASDIRECTED - Assessment/Plan Last 24 Hours: My Active Orders 10/14/17 21:45 EKG Documentation Completion [RC] ASDIRECTED Assessment:: Costochondritis Plan: Pt reassured that her EKG is in NSR. Also she has elicitable tenderness over the sterno-chondral junctions of the anterior chest. Pt reassured that she has strained the joint when she tried to prevent a fall on 10/13/17. Advised deep breathing exercises. Intermittent heat to the chest wall 3-4 times daily. Motrin 600mg 3 times daily with food for 3-5 days. If symptoms not better in 1 wk, followup in clinic with her primary care provider.
== END 2017-10-14 21:50 | disposition home or self-care (01) ==
LOC: LB.ED 21:21
DX: M94.0 Chondrocostal junction syndrome [Tietze] (principal); E78.00 Pure hypercholesterolemia, unspecified; I10 Essential (primary) hypertension; E11.9 Type 2 diabetes mellitus without complications; F17.210 Nicotine dependence, cigarettes, uncomplicated; Z79.82 Long term (current) use of aspirin; Z79.899 Other long term (current) drug therapy
CPT/HCPCS: 93005; 99283; 99285-25; A0425; A0429

== ENCOUNTER 2017-10-19 19:08 | Emergency (ER) | payer MEDICARE, MEDICAID ==
--- NOTE | 2017-10-19 19:32 | EDM.PDOC ---
ED HPI GENERAL MEDICAL PROBLEM - General Chief Complaint: General Stated Complaint: SOB Time Seen by Provider: 10/19/17 19:10 Source of Information: Reports: Patient History Limitations: Reports: No Limitations - History of Present Illness INITIAL COMMENTS - FREE TEXT/NARRATIVE: According to patient she was sitting outside in the sun and she got up to go into her apartment and she felt like she could not breath in and out of her chest. There was no chest pain or diaphoresis. she just sat back in the chair and called for ambulance. No fever or chills. she claims she feels better now. When the EMS went to pick her up, she was alert. Her SPO2 was 96% on RA, and did not appear in any discomfort. Vitals were stable. No other complaints. Pt claims she feels fine now. Onset: Today Onset Date: 10/19/17 Onset Time: 19:00 Duration: Improving Improves with: Reports: None Worsens with: Reports: None Associated Symptoms: Reports: Shortness of Breath. Denies: Confusion, Chest Pain, Cough, Diaphoresis, Fever/Chills, Headaches, Malaise, Nausea/Vomiting, Rash, Seizure, Syncope, Weakness congested chest Pain Score (Numeric/FACES): 4 - Related Data Allergies Allergy/AdvReac Type Severity Reaction Status Date / Time No Known Allergies Allergy Verified 10/14/17 23:19 Home Meds: Home Meds Aspirin 81 tab PO DAILY 08/05/13 [History] Divalproex Sodium [Divalproex Sodium ER] 500 mg PO DAILY 08/05/13 [History] Omeprazole 20 mg PO ACBREAKFAST 08/05/13 [History] Simvastatin 20 mg PO BEDTIME 08/05/13 [History] Metoprolol Succinate [Toprol XL] 25 mg PO DAILY tab.er 02/28/15 [Rx] Divalproex Sodium [Divalproex Sodium ER] 1,000 mg PO BEDTIME 08/12/15 [History] Meloxicam 15 mg PO DAILY 08/12/15 [History] Nitroglycerin [Nitrostat] 0.4 mg SL ASDIRECTED PRN 08/12/15 [History] Venlafaxine HCl [Venlafaxine HCl ER] 300 mg PO DAILY 08/12/15 [History] amLODIPine [Norvasc] 2.5 mg PO DAILY 08/18/15 [History] busPIRone HCl [Buspirone HCl] 0.5 tab PO TID 08/25/15 [History] ALPRAZolam [Alprazolam] 0.5 mg PO BID 03/31/16 [History] Albuterol Sulfate 2.5 mg IH QID PRN 03/31/16 [History] Etodolac 400 mg PO DAILY 03/31/16 [History] Fluticasone/Salmeterol [Advair 250-50 Diskus] 1 puff PO DAILY 03/31/16 [History] predniSONE [Prednisone] 50 mg PO DAILY 03/31/16 [History] Past Medical History HEENT History: Reports: Impaired Vision Cardiovascular History: Reports: Angina, High Cholesterol, Hypertension, Other ( See Below) Other Cardiovascular History: Raynaud phenomenon Respiratory History: Reports: COPD Other Respiratory History: Current active smoker-1ppd x20 years Gastrointestinal History: Reports: GERD Genitourinary History: Reports: UTI, Recurrent 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 Neurological History: Reports: Migraines Psychiatric History: Reports: Anxiety, Bipolar, Depression, Panic Attack, Schizophrenia Endocrine/Metabolic History: Reports: Diabetes, Type II Other Endocrine/Metabolic History: pt denies having diabetes 08/26/17 Dermatologic History: Reports: Other (See Below) Other Dermatologic History: Chronic open area present to breast folds - Infectious Disease History Infectious Disease History: Reports: Chicken Pox - Past Surgical History HEENT Surgical History: Reports: Adenoidectomy, Tonsillectomy Other HEENT Surgeries/Procedures: at about 11 year old had tonsils and adenoids removed Cardiovascular Surgical History: Reports: Coronary Artery Stent, Other (See Below) Other Cardiovascular Surgeries/Procedures: pt states she has stents put in her heart in jun GI Surgical History: Reports: Colonoscopy Social & Family History - Family History Family Medical History: Noncontributory HEENT: Reports: Impaired Vision Cardiac: Reports: Other (See Below) Other Cardiac Family History: Unknown Respiratory: Reports: Asthma GI: Reports: None : Reports: None OBGYN: Reports: None, Musculoskeletal: Reports: Arthritis Neurological: Reports: None Psychiatric: Reports: Anxiety, Bipolar, Depression, Panic Attack Endocrine/Metabolic: Reports: None Hematologic: Reports: None Immunologic: Reports: None - Caffeine Use Caffeine Use: Reports: Coffee, Soda Other Caffeine Use: 2 bottles a day ED ROS GENERAL - Review of Systems Review Of Systems: See Below Constitutional: Denies: Fever, Chills, Malaise, Weakness HEENT: Denies: Rhinitis, Sinus Problem, Throat Pain, Throat Swelling Respiratory: Reports: Shortness of Breath. Denies: Wheezing, Pleuritic Chest Pain, Cough, Sputum Cardiovascular: Denies: Chest Pain, Lightheadedness Endocrine: Denies: Fatigue GI/Abdominal: Denies: Abdominal Pain, Nausea, Vomiting : Denies: Flank Pain, Frequency, Hematuria Musculoskeletal: Denies: Joint Pain, Joint Swelling Skin: Denies: Bruising, Pruritis, Rash, Erythema Psychiatric: Reports: Anxiety. Denies: Agitation, Confusion, Cravings, Depression ED EXAM, GENERAL - Physical Exam Exam: See Below Exam Limited By: No Limitations General Appearance: Alert, WD/WN, Anxious Ears: Normal External Exam, Normal Canal, Hearing Grossly Normal, Normal TMs Ear Exam: Bilateral Ear: Auricle Normal, Canal Normal, TM normal Nose: Normal Inspection, Normal Mucosa, No Blood Throat/Mouth: Normal Inspection, Normal Lips, Normal Teeth, Normal Gums, Normal Oropharynx, Normal Voice, No Airway Compromise Head: Atraumatic, Normocephalic Neck: Normal Inspection, Supple, Non-Tender, Full Range of Motion Respiratory/Chest: No Respiratory Distress, Lungs Clear, Normal Breath Sounds, No Accessory Muscle Use, Chest Non-Tender Cardiovascular: Normal Peripheral Pulses, Regular Rate, Rhythm, No Edema, No Gallop, No JVD, No Murmur, No Rub Psychiatric: Normal Affect, Anxious Skin Exam: Warm, Intact Course - Vital Signs Text/Narrative:: Pt is a very frequent flyer through this emergency room. She has high level of anxiety and call ambulance all the time. Her vitals are stable her BP is 133/ 73mmhg. Temp normal. Heart rate in 80s and her SPO2 is ranging between 95-100% on room air. Pt is anxious. She might have had anxiety episode. To reassure patient that she is fine, I did get chest Xray. portable. Chest xray appears normal. She might have felt the way she felt because of her being out on a pj humid day.Pt advised to continue home meds. Last Recorded V/S: Last Vital Signs Temp 97.2 F 10/19/17 19:18 Pulse 71 10/19/17 19:18 Resp 20 10/19/17 19:18 BP 133/73 10/19/17 19:18 Pulse Ox 99 10/19/17 19:18 - Orders/Labs/Meds Orders: Active Orders 24 hr Category Date Time Status Chest 1V Frontal [CR] Stat Exams 10/19/17 19:24 Taken Departure - Departure Time of Disposition: 19:50 Disposition: Home, Self-Care 01 Condition: Good Clinical Impression: Anxiety - Discharge Information Forms: ED Department Discharge Additional Instructions: Chest xray appears normal. She might have felt the way she felt because of her being out on a pj humid day. Pt advised to continue home meds. - Problem List & Annotations (1) Anxiety SNOMED Code(s): 49140483 Code(s): F41.9 - ANXIETY DISORDER, UNSPECIFIED Status: Acute Priority: High Onset Date: 06/22/15 Annotation/Comment:: 09/21/15 - Anxiety, symptoms currently resolved. - Problem List Review Problem List Initiated/Reviewed/Updated: Yes - My Orders Last 24 Hours: My Active Orders 10/19/17 19:24 Chest 1V Frontal [CR] Stat - Assessment/Plan Last 24 Hours: My Active Orders 10/19/17 19:24 Chest 1V Frontal [CR] Stat Assessment:: Anxiety with SOB Plan: Pt is a very frequent flyer through this emergency room. She has high level of anxiety and call ambulance all the time. Her vitals are stable her BP is 133/ 73mmhg. Temp normal. Heart rate in 80s and her SPO2 is ranging between 95-100% on room air. Pt is anxious. She might have had anxiety episode. To reassure patient that she is fine, I did get chest Xray. portable. Chest xray appears normal. She might have felt the way she felt because of her being out on a pj humid day.Pt advised to continue home meds.
[2017-10-19 19:51] VITALS: BP 125/56
--- NOTE | 2017-10-20 07:22 | CR ---
DATE OF SERVICE: 10/19/17 CLINICAL DATA: Shortness of breath AP CHEST: Comparison is made to a prior exam dated 10/08/2017. No change. No evidence of acute intrathoracic disease. [id number] [facility]
== END 2017-10-19 19:51 | disposition home or self-care (01) ==
LOC: LB.ED 19:08
DX: F41.9 Anxiety disorder, unspecified (principal); R06.02 Shortness of breath; E11.9 Type 2 diabetes mellitus without complications; J44.9 Chronic obstructive pulmonary disease, unspecified; I10 Essential (primary) hypertension; E78.00 Pure hypercholesterolemia, unspecified; Z79.82 Long term (current) use of aspirin; Z79.899 Other long term (current) drug therapy
CPT/HCPCS: 71045; 99285; A0425; A0429; 99283

== ENCOUNTER 2017-10-21 21:12 | Emergency (ER) | payer MEDICARE, MEDICAID ==
[2017-10-21] MEDS ORDERED: Ciprofloxacin 500 MG Tab ONE (21:30)
[2017-10-21] MEDS ORDERED: Phenazopyridine 100 MG Tab ONE (21:30)
--- NOTE | 2017-10-21 21:39 | EDM.PDOC ---
ED HPI GENERAL MEDICAL PROBLEM - General Chief Complaint: General Stated Complaint: not urinating Time Seen by Provider: 10/21/17 21:15 Source of Information: Reports: Patient History Limitations: Reports: No Limitations - History of Present Illness INITIAL COMMENTS - FREE TEXT/NARRATIVE: According to patient she has been having urinary frequency with urgency since today morning. She claims she only passed small amount of urine, and faustin to urinate. Does having pain in the supra pubic region . Does c/o back pain. No nausea or vomiting. No diarrhea, coguh. Pt claims she has been drinking water all day. Onset: Today Onset Date: 10/21/17 Onset Time: 08:00 Duration: Intermittent Location: Reports: Abdomen Quality: Reports: Ache Severity: Moderate Improves with: Reports: None Worsens with: Reports: None Associated Symptoms: Denies: Confusion, Chest Pain, Cough, Diaphoresis, Fever/ Chills, Headaches, Nausea/Vomiting, Rash, Seizure, Shortness of Breath, Syncope , Weakness - Related Data Allergies Allergy/AdvReac Type Severity Reaction Status Date / Time No Known Allergies Allergy Verified 10/14/17 23:19 Home Meds: Home Meds Aspirin 81 tab PO DAILY 08/05/13 [History] Divalproex Sodium [Divalproex Sodium ER] 500 mg PO DAILY 08/05/13 [History] Omeprazole 20 mg PO ACBREAKFAST 08/05/13 [History] Simvastatin 20 mg PO BEDTIME 08/05/13 [History] Metoprolol Succinate [Toprol XL] 25 mg PO DAILY tab.er 02/28/15 [Rx] Divalproex Sodium [Divalproex Sodium ER] 1,000 mg PO BEDTIME 08/12/15 [History] Meloxicam 15 mg PO DAILY 08/12/15 [History] Nitroglycerin [Nitrostat] 0.4 mg SL ASDIRECTED PRN 08/12/15 [History] Venlafaxine HCl [Venlafaxine HCl ER] 300 mg PO DAILY 08/12/15 [History] amLODIPine [Norvasc] 2.5 mg PO DAILY 08/18/15 [History] busPIRone HCl [Buspirone HCl] 0.5 tab PO TID 08/25/15 [History] ALPRAZolam [Alprazolam] 0.5 mg PO BID 03/31/16 [History] Albuterol Sulfate 2.5 mg IH QID PRN 03/31/16 [History] Etodolac 400 mg PO DAILY 03/31/16 [History] Fluticasone/Salmeterol [Advair 250-50 Diskus] 1 puff PO DAILY 03/31/16 [History] predniSONE [Prednisone] 50 mg PO DAILY 03/31/16 [History] Past Medical History HEENT History: Reports: Impaired Vision Cardiovascular History: Reports: Angina, High Cholesterol, Hypertension, Other ( See Below) Other Cardiovascular History: Raynaud phenomenon Respiratory History: Reports: COPD Other Respiratory History: Current active smoker-1ppd x20 years Gastrointestinal History: Reports: GERD Genitourinary History: Reports: UTI, Recurrent 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 Neurological History: Reports: Migraines Psychiatric History: Reports: Anxiety, Bipolar, Depression, Panic Attack, Schizophrenia Endocrine/Metabolic History: Reports: Diabetes, Type II Other Endocrine/Metabolic History: pt denies having diabetes 08/26/17 Dermatologic History: Reports: Other (See Below) Other Dermatologic History: Chronic open area present to breast folds - Infectious Disease History Infectious Disease History: Reports: Chicken Pox - Past Surgical History HEENT Surgical History: Reports: Adenoidectomy, Tonsillectomy Other HEENT Surgeries/Procedures: at about 11 year old had tonsils and adenoids removed Cardiovascular Surgical History: Reports: Coronary Artery Stent, Other (See Below) Other Cardiovascular Surgeries/Procedures: pt states she has stents put in her heart in jun GI Surgical History: Reports: Colonoscopy Social & Family History - Family History Family Medical History: Noncontributory HEENT: Reports: Impaired Vision Cardiac: Reports: Other (See Below) Other Cardiac Family History: Unknown Respiratory: Reports: Asthma GI: Reports: None : Reports: None OBGYN: Reports: None, Musculoskeletal: Reports: Arthritis Neurological: Reports: None Psychiatric: Reports: Anxiety, Bipolar, Depression, Panic Attack Endocrine/Metabolic: Reports: None Hematologic: Reports: None Immunologic: Reports: None - Caffeine Use Caffeine Use: Reports: Coffee, Soda Other Caffeine Use: 2 bottles a day ED ROS GENERAL - Review of Systems Review Of Systems: See Below Constitutional: Denies: Fever, Chills, Weakness, Fatigue HEENT: Denies: Rhinitis, Sinus Problem, Throat Pain, Throat Swelling Respiratory: Denies: Shortness of Breath, Wheezing, Cough, Sputum Cardiovascular: Denies: Chest Pain, Lightheadedness Endocrine: Denies: Fatigue, Low Glucose GI/Abdominal: Reports: Abdominal Pain, Flatus. Denies: Constipation, Diarrhea, Nausea, Vomiting : Reports: Dysuria, Flank Pain, Frequency, Urgency. Denies: Discharge, Hematuria, Urinary Retention Musculoskeletal: Denies: Joint Pain, Joint Swelling Skin: Denies: Pruritis, Rash ED EXAM, GENERAL - Physical Exam Exam: See Below Exam Limited By: No Limitations General Appearance: Alert, WD/WN, No Apparent Distress Eye Exam: Bilateral Eye: EOMI, PERRL Ears: Normal External Exam, Normal Canal, Hearing Grossly Normal, Normal TMs Ear Exam: Bilateral Ear: Auricle Normal, Canal Normal, TM normal Nose: Normal Inspection, Normal Mucosa, No Blood Throat/Mouth: Normal Inspection, Normal Lips, Normal Teeth, Normal Gums, Normal Oropharynx, Normal Voice, No Airway Compromise Head: Atraumatic, Normocephalic Neck: Normal Inspection, Supple, Non-Tender, Full Range of Motion Respiratory/Chest: No Respiratory Distress, Lungs Clear, Normal Breath Sounds, No Accessory Muscle Use, Chest Non-Tender Cardiovascular: Normal Peripheral Pulses, Regular Rate, Rhythm, No Edema, No Gallop, No JVD, No Murmur, No Rub GI/Abdominal: Normal Bowel Sounds, Soft, No Organomegaly, No Distention, No Abnormal Bruit, No Mass, Tender (suprapubic area) Back Exam: Normal Inspection, Full Range of Motion, CVA Tenderness (R). No: CVA Tenderness (L), Paraspinal Tenderness, Vertebral Tenderness Course - Vital Signs Text/Narrative:: Pt's CBC and CMP is normal. her UA showed + leucos and plenty of WBC and RBCs. She has Acute UTI. Advised to drink plenty of fluids 1.5-2 litres daily. 1-2 glass of cranberry juice. Will have urine culture will call with results. Pyridium 100mg TID for dysuria. Followup in clinic if symptoms worsen. Last Recorded V/S: Last Vital Signs Temp 97.6 F 10/21/17 21:30 Pulse 101 H 10/21/17 21:30 Resp 12 10/21/17 21:30 BP 145/86 H 10/21/17 21:30 Pulse Ox 96 10/21/17 21:30 - Orders/Labs/Meds Orders: Active Orders 24 hr Category Date Time Status UA W/MICROSCOPIC [URIN] Stat Lab 10/21/17 21:29 Ordered Labs: Laboratory Tests 10/21/17 10/21/17 10/21/17 Range/Units 21:29 21:40 21:40 WBC 9.0 D (4.0-11.0) K/uL RBC 4.89 (3.80-5.80) M/uL Hgb 13.7 (11.5-16.5) g/dL Hct 40.4 (37.0-47.0) % MCV 83 (76-96) fL MCH 28.0 (27.0-32.0) pg MCHC 33.9 (31.0-35.0) g/dL RDW 15.2 (11.0-16.0) % Plt Count 195 D (150-500) K/uL MPV 9.0 (6.0-10.0) fL Neut % (Auto) 44.9 L (45.0-70.0) % Lymph % (Auto) 42.0 H (20.0-40.0) % [place] % (Auto) 12.6 H (3.0-10.0) % Eos % (Auto) 0.4 L (1.0-5.0) % Baso % (Auto) 0.1 (0.0-0.5) % Neut # (Auto) 4.04 (2.00-7.50) K/uL Lymph # (Auto) 3.78 (1.50-4.00) K/uL [place] # (Auto) 1.13 H (0.20-0.80) K/uL Eos # (Auto) 0.04 (0.04-0.40) K/uL Baso # (Auto) 0.01 L (0.02-0.10) K/uL Sodium 147 H (136-145) mmol/L Potassium 3.8 (3.5-5.1) mmol/L Chloride 105 (98-107) mmol/L Carbon Dioxide 31.8 (21.0-32.0) mmol/L Anion Gap 14.0 (5.0-15.0) mmol/L BUN 22 D (8-26) mg/dL Creatinine 1.18 H D (0.55-1.02) mg/dL Est Cr Clr Drug Dosing TNP Estimated GFR (MDRD) 48 L (>60) MLS/MIN BUN/Creatinine Ratio 18.6 (6-25) Glucose 95 (74-100) mg/dL Calcium 9.0 (8.5-10.1) mg/dL Urine Color Yellow Urine Appearance Slightly cloudy (CLEAR) Urine pH 5.5 (5.0-8.0) Ur Specific [place] >= 1.030 (1.003-1.030) Urine Protein 100 H (NEGATIVE) mg/dL Urine Glucose (UA) Negative (NEGATIVE) mg/dL Urine Ketones 15 H (NEGATIVE) mg/dL Urine Occult Blood Moderate H (NEGATIVE) Urine Nitrite Negative (NEGATIVE) Urine Bilirubin Small H (NEGATIVE) Urine Urobilinogen 1.0 (0.2-1.0) E.U./dL Ur Leukocyte Esterase Small H (NEGATIVE) Urine RBC 75-100 H /HPF Urine WBC Semi-packed H /HPF Ur Squamous Epith Cells Moderate /HPF Urine Bacteria Few /HPF Departure - Departure Time of Disposition: 22:10 Disposition: Home, Self-Care 01 Condition: Fair Clinical Impression: UTI (urinary tract infection) - Discharge Information Instructions: Urinary Tract Infection, Adult, [id number] Referrals: PCP,None [Primary Care Provider] - Forms: ED Department Discharge Additional Instructions: Pt's CBC and CMP is normal. her UA showed + leucos and plenty of WBC and RBCs. She has Acute UTI. Advised to drink plenty of fluids 1.5-2 litres daily. 1-2 glass of cranberry juice. Will have urine culture will call with results. Pyridium 100mg TID for dysuria. Followup in clinic if symptoms worsen. - Problem List & Annotations (1) UTI (urinary tract infection) SNOMED Code(s): 26052980 Code(s): N39.0 - URINARY TRACT INFECTION, SITE NOT SPECIFIED Status: Acute Current Visit: Yes - Problem List Review Problem List Initiated/Reviewed/Updated: Yes - My Orders Last 24 Hours: My Active Orders 10/21/17 21:29 UA W/MICROSCOPIC [URIN] Stat - Assessment/Plan Last 24 Hours: My Active Orders 10/21/17 21:29 UA W/MICROSCOPIC [URIN] Stat Assessment:: UTI Plan: Pt's CBC and CMP is normal. her UA showed + leucos and plenty of WBC and RBCs. She has Acute UTI. Advised to drink plenty of fluids 1.5-2 litres daily. 1-2 glass of cranberry juice daily. Will have urine culture will call with results. Pyridium 100mg TID for dysuria. Followup in clinic if symptoms worsen.
[2017-10-21 21:40] VITALS: BP 145/86
== END 2017-10-21 22:25 | disposition home or self-care (01) ==
LOC: LB.ED 21:12
DX: N39.0 Urinary tract infection, site not specified (principal); I10 Essential (primary) hypertension; F17.210 Nicotine dependence, cigarettes, uncomplicated; E11.9 Type 2 diabetes mellitus without complications; Z79.82 Long term (current) use of aspirin; Z79.899 Other long term (current) drug therapy
CPT/HCPCS: 36415; 80048; 81001; 85025; 87086; 87088; 99283; A0425; A0429; A9270-GY

== ENCOUNTER 2017-10-31 18:42 | Observation (INO) | payer MEDICARE, MEDICAID ==
[2017-10-31] MEDS ORDERED: Acetaminophen 325 MG Tab PO ONE (19:13)
[2017-10-31] MEDS ORDERED: Ketorolac 30 MG/ML SDV IVPUSH ONE (19:14)
[2017-10-31] MEDS ORDERED: Ketorolac 30 MG/ML SDV ONE (19:30)
[2017-10-31] MEDS ORDERED: Morphine 2 MG/ML Syringe IVPUSH PRN (20:12)
[2017-10-31] MEDS ORDERED: Morphine 2 MG/ML Syringe ONE (20:19)
--- NOTE | 2017-10-31 20:41 | EDM.PDOC ---
ED HPI GENERAL MEDICAL PROBLEM - General Chief Complaint: Upper Extremity Injury/Pain Stated Complaint: FALL Time Seen by Provider: 10/31/17 18:50 Source of Information: Reports: Patient, EMS, EMS Notes Reviewed History Limitations: Reports: No Limitations - History of Present Illness INITIAL COMMENTS - FREE TEXT/NARRATIVE: This is a 52yo F who states she fell at home and may have lost consciousness. She complains of severe lower back pain and tenderness. She has neck pain and a headache. She was found next to her fridge after she had pressed her life alert button. Patient has not had air conditioning for some time and EMS states it is like 90 in her apartment. Patient has been seen by [employer] and they have been working with social workers to help her get an air conditioner. Onset: Sudden Duration: Minutes: Location: Reports: Head, Neck, Back Quality: Reports: Ache Severity: Moderate Improves with: Reports: None Worsens with: Reports: Movement Associated Symptoms: Reports: Headaches Treatments [employer] THREE KNIFE: Reports: Cervical Collar, Spinal Immobilization Right Shoulder Pain Score (Numeric/FACES): 7 Neck/Back Pain Score (Numeric/FACES): 7 - Related Data Allergies Allergy/AdvReac Type Severity Reaction Status Date / Time No Known Allergies Allergy Verified 10/14/17 23:19 Home Meds: Home Meds Aspirin 81 tab PO DAILY 08/05/13 [History] Divalproex Sodium [Divalproex Sodium ER] 500 mg PO DAILY 08/05/13 [History] Omeprazole 20 mg PO ACBREAKFAST 08/05/13 [History] Simvastatin 20 mg PO BEDTIME 08/05/13 [History] Metoprolol Succinate [Toprol XL] 25 mg PO DAILY tab.er 02/28/15 [Rx] Divalproex Sodium [Divalproex Sodium ER] 1,000 mg PO BEDTIME 08/12/15 [History] Meloxicam 15 mg PO DAILY 08/12/15 [History] Nitroglycerin [Nitrostat] 0.4 mg SL ASDIRECTED PRN 08/12/15 [History] Venlafaxine HCl [Venlafaxine HCl ER] 300 mg PO DAILY 08/12/15 [History] amLODIPine [Norvasc] 2.5 mg PO DAILY 08/18/15 [History] busPIRone HCl [Buspirone HCl] 0.5 tab PO TID 08/25/15 [History] ALPRAZolam [Alprazolam] 0.5 mg PO BID 03/31/16 [History] Albuterol Sulfate 2.5 mg IH QID PRN 03/31/16 [History] Etodolac 400 mg PO DAILY 03/31/16 [History] Fluticasone/Salmeterol [Advair 250-50 Diskus] 1 puff PO DAILY 03/31/16 [History] predniSONE [Prednisone] 50 mg PO DAILY 03/31/16 [History] Past Medical History HEENT History: Reports: Impaired Vision Cardiovascular History: Reports: Angina, High Cholesterol, Hypertension, Other ( See Below) Other Cardiovascular History: Raynaud phenomenon Respiratory History: Reports: COPD Other Respiratory History: Current active smoker-1ppd x20 years Gastrointestinal History: Reports: GERD Genitourinary History: Reports: UTI, Recurrent YARD CONDUCTOR History: Reports: Other (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 Neurological History: Reports: Migraines Psychiatric History: Reports: Anxiety, Bipolar, Depression, Panic Attack, Schizophrenia Endocrine/Metabolic History: Reports: Diabetes, Type II Other Endocrine/Metabolic History: pt denies having diabetes 08/26/17 Dermatologic History: Reports: Other (See Below) Other Dermatologic History: Chronic open area present to breast folds - Infectious Disease History Infectious Disease History: Reports: Chicken Pox - Past Surgical History HEENT Surgical History: Reports: Adenoidectomy, Tonsillectomy Other HEENT Surgeries/Procedures: at about 11 year old had tonsils and adenoids removed Cardiovascular Surgical History: Reports: Coronary Artery Stent, Other (See Below) Other Cardiovascular Surgeries/Procedures: pt states she has stents put in her heart in jun GI Surgical History: Reports: Colonoscopy Social & Family History - Family History Family Medical History: Noncontributory HEENT: Reports: Impaired Vision Cardiac: Reports: Other (See Below) Other Cardiac Family History: Unknown Respiratory: Reports: Asthma GI: Reports: None : Reports: None OBGYN: Reports: None, Musculoskeletal: Reports: Arthritis Neurological: Reports: None Psychiatric: Reports: Anxiety, Bipolar, Depression, Panic Attack Endocrine/Metabolic: Reports: None Hematologic: Reports: None Immunologic: Reports: None - Tobacco Use Smoking Status *Q: Current Every Day Smoker Years of Tobacco use: 30 Packs/Tins Daily: 1 - Caffeine Use Caffeine Use: Reports: Soda Other Caffeine Use: 2 bottles a day Review of Systems - Review of Systems Review Of Systems: ROS reveals no pertinent complaints other than HPI. ED EXAM, GENERAL - Physical Exam Exam: See Below Exam Limited By: No Limitations General Appearance: Alert, WD/WN, Moderate Distress Eye Exam: Bilateral Eye: EOMI, PERRL Ears: Normal External Exam Nose: Normal Inspection Throat/Mouth: Normal Inspection. No: Normal Teeth Head: Atraumatic, Normocephalic Neck: Normal Inspection Respiratory/Chest: No Respiratory Distress, Lungs Clear Cardiovascular: Normal Peripheral Pulses, Regular Rate, Rhythm GI/Abdominal: Normal Bowel Sounds Back Exam: Vertebral Tenderness Extremities: Normal Inspection Neurological: Alert, Oriented Psychiatric: Normal Affect, Normal Mood Skin Exam: Warm, Intact, Diaphoretic Course - Vital Signs Last Recorded V/S: Last Vital Signs Temp 36.4 C 10/31/17 20:02 Pulse 97 10/31/17 20:02 Resp 12 10/31/17 20:02 BP 133/68 10/31/17 20:02 Pulse Ox 97 10/31/17 20:02 - Orders/Labs/Meds Orders: Active Orders 24 hr Category Date Time Status Patient Status [ADT] Routine ADT 10/31/17 21:00 Ordered Oxygen Therapy [RC] PRN Care 10/31/17 21:41 Ordered Vital Signs [RC] Q4H Care 10/31/17 21:41 Ordered Heart Healthy Diet [DIET] Diet 10/31/17 Dinner Ordered Cervical Spine wo Cont [CT] Stat Exams 10/31/17 19:10 Taken Head wo Cont [CT] Stat Exams 10/31/17 19:32 Taken Lumbar Spine wo Cont [CT] Stat Exams 10/31/17 19:13 Taken Thoracic Spine wo Cont [CT] Stat Exams 10/31/17 19:10 Taken CBC WITH AUTO DIFF [HEME] AM Lab 11/01/17 05:11 Ordered COMPREHENSIVE METABOLIC PN,CMP [CHEM] AM Lab 11/01/17 05:11 Ordered UA W/MICROSCOPIC [URIN] Stat Lab 10/31/17 19:09 Ordered ALPRAZolam [Alprazolam] Med 11/01/17 08:00 Ordered 0.5 mg PO BID Albuterol [Proventil Neb Soln] Med 10/31/17 21:43 Ordered 2.5 mg INH QID PRN Aspirin [Aspirin] Med 11/01/17 08:00 Ordered 81 tab PO DAILY Divalproex Sodium [Divalproex Sodium ER] Med 11/01/17 20:00 Ordered 1,000 mg PO BEDTIME Divalproex Sodium [Divalproex Sodium ER] Med 11/01/17 08:00 Ordered 500 mg PO DAILY Etodolac [Etodolac] Med 11/01/17 08:00 Ordered 400 mg PO DAILY Fluticasone/Salmeterol [Advair 250-50 Diskus] Med 11/01/17 08:00 Ordered 1 puff PO DAILY Meloxicam [Mobic] Med 11/01/17 08:00 Ordered 15 mg PO DAILY Metoprolol Succinate [Toprol XL] Med 11/01/17 08:00 Ordered 25 mg PO DAILY Morphine Med 10/31/17 20:12 Active 1 mg IVPUSH Q1H PRN Nitroglycerin [Nitrostat] Med 10/31/17 21:43 Ordered 0.4 mg SL ASDIRECTED PRN Omeprazole Med 11/01/17 07:00 Ordered 20 mg PO ACBREAKFAST Simvastatin [Zocor] Med 11/01/17 20:00 Ordered 20 mg PO BEDTIME Sodium Chloride 0.9% [Normal Saline] 1,000 ml Med 10/31/17 20:30 Active IV ASDIRECTED Venlafaxine HCl [Venlafaxine HCl ER] Med 11/01/17 08:00 Ordered 300 mg PO DAILY amLODIPine [Norvasc] Med 11/01/17 08:00 Ordered 2.5 mg PO DAILY busPIRone [Buspar] Med 11/01/17 08:00 Ordered 0.5 tab PO TID predniSONE [Prednisone] Med 11/01/17 08:00 Ordered 50 mg PO DAILY Resuscitation Status Routine Resus Stat 10/31/17 21:41 Ordered Medication Orders Albuterol (Proventil Neb Soln) 2.5 mg INH QID PRN PRN Reason: Shortness of Breath Amlodipine Besylate (Norvasc) 2.5 mg PO DAILY [facility] Buspirone HCl (Buspar) mg PO TID [facility] Sodium Chloride (Normal Saline) 1,000 mls @ 999 mls/hr IV ASDIRECTED [facility] Meloxicam (Mobic) 15 mg PO DAILY [facility] Metoprolol Succinate (Toprol Xl) 25 mg PO DAILY [facility] Morphine Sulfate (Morphine) 1 mg IVPUSH Q1H PRN PRN Reason: back pain Last Admin: 10/31/17 20:30 Dose: 1 mg Non-Formulary Medication (Alprazolam [Alprazolam]) 0.5 mg PO BID [facility] Non-Formulary Medication (Aspirin [Aspirin]) 81 tab PO DAILY [facility] Non-Formulary Medication (Divalproex Sodium [Divalproex Sodium Er]) 500 mg PO DAILY [facility] Non-Formulary Medication (Divalproex Sodium [Divalproex Sodium Er]) 1,000 mg PO BEDTIME [facility] Non-Formulary Medication (Etodolac [Etodolac]) 400 mg PO DAILY [facility] Non-Formulary Medication (Fluticasone/Salmeterol [Advair 250-50 Diskus]) 1 puff PO DAILY [facility] Labs: Laboratory Tests 10/31/17 10/31/17 Range/Units 19:55 19:55 WBC 6.7 D (4.0-11.0) K/uL RBC 4.96 (3.80-5.80) M/uL Hgb 14.0 (11.5-16.5) g/dL Hct 41.2 (37.0-47.0) % MCV 83 (76-96) fL MCH 28.2 (27.0-32.0) pg MCHC 34.0 (31.0-35.0) g/dL RDW 15.4 (11.0-16.0) % Plt Count 177 (150-500) K/uL MPV 8.8 (6.0-10.0) fL Neut % (Auto) 40.3 L (45.0-70.0) % Lymph % (Auto) 42.9 H (20.0-40.0) % [place] % (Auto) 15.5 H (3.0-10.0) % Eos % (Auto) 1.2 (1.0-5.0) % Baso % (Auto) 0.1 (0.0-0.5) % Neut # (Auto) 2.71 (2.00-7.50) K/uL Lymph # (Auto) 2.89 (1.50-4.00) K/uL [place] # (Auto) 1.04 H (0.20-0.80) K/uL Eos # (Auto) 0.08 (0.04-0.40) K/uL Baso # (Auto) 0.01 L (0.02-0.10) K/uL Sodium 143 (136-145) mmol/L Potassium 4.4 (3.5-5.1) mmol/L Chloride 104 (98-107) mmol/L Carbon Dioxide 30.4 (21.0-32.0) mmol/L Anion Gap 13.0 (5.0-15.0) mmol/L BUN 24 (8-26) mg/dL Creatinine 1.08 H (0.55-1.02) mg/dL Est Cr Clr Drug Dosing TNP Estimated GFR (MDRD) 53 L (>60) MLS/MIN BUN/Creatinine Ratio 22.2 (6-25) Glucose 95 (74-100) mg/dL Calcium 8.8 (8.5-10.1) mg/dL Total Bilirubin 0.3 D (0.0-1.0) mg/dL AST 39 H (15-37) U/L ALT 28 (12-78) U/L Alkaline Phosphatase 120 H (46-116) U/L Total Protein 7.7 (6.4-8.2) g/dL Albumin 3.2 L (3.4-5.0) g/dL Globulin 4.5 H (2.2-4.2) g/dL Albumin/Globulin Ratio 0.7 L (0.8-2.0) Meds: Medications Generic Name Dose Route Start Last Admin Trade Name Freq PRN Reason Stop Dose Admin Albuterol 2.5 mg 10/31/17 21:43 Proventil Neb Soln INH QID PRN Shortness of Breath Amlodipine Besylate 2.5 mg 11/01/17 08:00 Norvasc PO DAILY [facility] Buspirone HCl mg 11/01/17 08:00 Buspar PO TID [facility] Sodium Chloride 1,000 mls @ 999 mls/hr 10/31/17 20:30 Normal Saline IV ASDIRECTED [facility] Meloxicam 15 mg 11/01/17 08:00 Mobic PO DAILY [facility] Metoprolol Succinate 25 mg 11/01/17 08:00 Toprol Xl PO DAILY [facility] Morphine Sulfate 1 mg 10/31/17 20:12 10/31/17 20:30 Morphine IVPUSH 1 mg Q1H PRN Administration back pain Non-Formulary Medication 0.5 mg 11/01/17 08:00 Alprazolam [Alprazolam] PO BID [facility] Non-Formulary Medication 81 tab 11/01/17 08:00 Aspirin [Aspirin] PO DAILY [facility] Non-Formulary Medication 500 mg 11/01/17 08:00 Divalproex Sodium [Divalproex Sodium Er] PO DAILY [facility] Non-Formulary Medication 1,000 mg 11/01/17 20:00 Divalproex Sodium [Divalproex Sodium Er] PO BEDTIME [facility] Non-Formulary Medication 400 mg 11/01/17 08:00 Etodolac [Etodolac] PO DAILY [facility] Non-Formulary Medication 1 puff 11/01/17 08:00 Fluticasone/Salmeterol [Advair 250-50 Diskus] PO DAILY [facility] Discontinued Medications Generic Name Dose Route Start Last Admin Trade Name Freq PRN Reason Stop Dose Admin Acetaminophen 650 mg 10/31/17 19:13 Tylenol PO 10/31/17 19:14 NOW ONE Ketorolac Tromethamine 30 mg 10/31/17 19:14 10/31/17 20:00 Toradol IVPUSH 10/31/17 19:15 30 mg ONETIME ONE Administration Ketorolac Tromethamine Confirm 10/31/17 19:30 Toradol Administered 10/31/17 19:31 Dose 30 mg .ROUTE .STK-MED ONE Morphine Sulfate Confirm 10/31/17 20:19 Morphine Administered 10/31/17 20:20 Dose 2 mg .ROUTE .STK-MED ONE Departure - Departure Time of Disposition: 21:00 Disposition: Refer to Observation Condition: Good Clinical Impression: Dehydration Fall Qualifiers: Encounter type: initial encounter Qualified Code(s): W19.XXXA - Unspecified fall, initial encounter Heat collapse Qualifiers: Encounter type: initial encounter Qualified Code(s): T67.1XXA - Heat syncope, initial encounter - Discharge Information Referrals: PCP,None [Primary Care Provider] - Forms: ED Department Discharge - Problem List & Annotations (1) Dehydration SNOMED Code(s): 36105759 Code(s): E86.0 - DEHYDRATION Status: Acute Priority: High Current Visit : Yes (2) Fall SNOMED Code(s): 3543468, 257764271 Code(s): W19.XXXA - UNSPECIFIED FALL, INITIAL ENCOUNTER Status: Acute Priority: High Current Visit: Yes Onset Date: ~08/26/17 Annotation/Comment :: 08/26/17 - Fall with closed head injury and neck pain with negative findings. Qualifiers: Encounter type: initial encounter Qualified Code(s): W19.XXXA - Unspecified fall, initial encounter (3) Heat collapse SNOMED Code(s): 92343886 Code(s): T67.1XXA - HEAT SYNCOPE, INITIAL ENCOUNTER Status: Acute Priority: High Current Visit: Yes Qualifiers: Encounter type: initial encounter Qualified Code(s): T67.1XXA - Heat syncope, initial encounter (4) Anxiety SNOMED Code(s): 61012920 Code(s): F41.9 - ANXIETY DISORDER, UNSPECIFIED Status: Acute Priority: High Current Visit: Yes Onset Date: 06/22/15 Annotation/Comment:: 09/24/17 - Anxiety 09/21/15 - Anxiety, symptoms currently resolved. - Problem List Review Problem List Initiated/Reviewed/Updated: Yes - My Orders Last 24 Hours: My Active Orders 10/31/17 19:09 UA W/MICROSCOPIC [URIN] Stat 10/31/17 19:10 Cervical Spine wo Cont [CT] Stat Thoracic Spine wo Cont [CT] Stat 10/31/17 19:13 Lumbar Spine wo Cont [CT] Stat 10/31/17 19:32 Head wo Cont [CT] Stat 10/31/17 20:12 Morphine 1 mg IVPUSH Q1H PRN 10/31/17 20:30 Sodium Chloride 0.9% [Normal Saline] 1,000 ml IV ASDIRECTED 10/31/17 21:00 Patient Status [ADT] Routine 10/31/17 21:41 Oxygen Therapy [RC] PRN Vital Signs [RC] Q4H Resuscitation Status Routine 10/31/17 21:43 Albuterol [Proventil Neb Soln] 2.5 mg INH QID PRN Nitroglycerin [Nitrostat] 0.4 mg SL ASDIRECTED PRN 10/31/17 Dinner Heart Healthy Diet [DIET] 11/01/17 05:11 CBC WITH AUTO DIFF [HEME] AM COMPREHENSIVE METABOLIC PN,CMP [CHEM] AM 11/01/17 07:00 Omeprazole 20 mg PO ACBREAKFAST 11/01/17 08:00 ALPRAZolam [Alprazolam] 0.5 mg PO BID Aspirin [Aspirin] 81 tab PO DAILY Divalproex Sodium [Divalproex Sodium ER] 500 mg PO DAILY Etodolac [Etodolac] 400 mg PO DAILY Fluticasone/Salmeterol [Advair 250-50 Diskus] 1 puff PO DAILY Meloxicam [Mobic] 15 mg PO DAILY Metoprolol Succinate [Toprol XL] 25 mg PO DAILY Venlafaxine HCl [Venlafaxine HCl ER] 300 mg PO DAILY amLODIPine [Norvasc] 2.5 mg PO DAILY busPIRone [Buspar] 0.5 tab PO TID predniSONE [Prednisone] 50 mg PO DAILY 11/01/17 20:00 Divalproex Sodium [Divalproex Sodium ER] 1,000 mg PO BEDTIME Simvastatin [Zocor] 20 mg PO BEDTIME - Assessment/Plan Last 24 Hours: My Active Orders 10/31/17 19:09 UA W/MICROSCOPIC [URIN] Stat 10/31/17 19:10 Cervical Spine wo Cont [CT] Stat Thoracic Spine wo Cont [CT] Stat 10/31/17 19:13 Lumbar Spine wo Cont [CT] Stat 10/31/17 19:32 Head wo Cont [CT] Stat 10/31/17 20:12 Morphine 1 mg IVPUSH Q1H PRN 10/31/17 20:30 Sodium Chloride 0.9% [Normal Saline] 1,000 ml IV ASDIRECTED 10/31/17 21:00 Patient Status [ADT] Routine 10/31/17 21:41 Oxygen Therapy [RC] PRN Vital Signs [RC] Q4H Resuscitation Status Routine 10/31/17 21:43 Albuterol [Proventil Neb Soln] 2.5 mg INH QID PRN Nitroglycerin [Nitrostat] 0.4 mg SL ASDIRECTED PRN 10/31/17 Dinner Heart Healthy Diet [DIET] 11/01/17 05:11 CBC WITH AUTO DIFF [HEME] AM COMPREHENSIVE METABOLIC PN,CMP [CHEM] AM 11/01/17 07:00 Omeprazole 20 mg PO ACBREAKFAST 11/01/17 08:00 ALPRAZolam [Alprazolam] 0.5 mg PO BID Aspirin [Aspirin] 81 tab PO DAILY Divalproex Sodium [Divalproex Sodium ER] 500 mg PO DAILY Etodolac [Etodolac] 400 mg PO DAILY Fluticasone/Salmeterol [Advair 250-50 Diskus] 1 puff PO DAILY Meloxicam [Mobic] 15 mg PO DAILY Metoprolol Succinate [Toprol XL] 25 mg PO DAILY Venlafaxine HCl [Venlafaxine HCl ER] 300 mg PO DAILY amLODIPine [Norvasc] 2.5 mg PO DAILY busPIRone [Buspar] 0.5 tab PO TID predniSONE [Prednisone] 50 mg PO DAILY 11/01/17 20:00 Divalproex Sodium [Divalproex Sodium ER] 1,000 mg PO BEDTIME Simvastatin [Zocor] 20 mg PO BEDTIME Plan: Patient placed in observation for management of dehydration and heat exposure. Patient labs ordered for f/u in AM. Counseled on back pain and management. Discussed CT results and f/u in clinic.
[2017-10-31] MEDS: Sodium Chloride 0.9% 1,000 ML IV SCH ×2 (21:30→23:00)
[2017-10-31] MEDS ORDERED: Albuterol 0.083% 2.5 MG/3 ML Neb Soln INH PRN (21:43)
[2017-10-31] MEDS ORDERED: Nitroglycerin 0.4 MG Tab.SL SL PRN (21:43)
[2017-10-31] MEDS ORDERED: Sodium Chloride 0.9% 1,000 ML IV SCH (23:00)
[2017-11-01] MEDS ORDERED: Omeprazole 20 MG Cap.CR PO SCH (07:00)
[2017-11-01] MEDS ORDERED: ALPRAZolam 0.25 MG Tab PO SCH (08:00)
[2017-11-01] MEDS ORDERED: predniSONE 10 MG Tab PO SCH (08:00)
[2017-11-01] MEDS: busPIRone 15 MG Tab PO SCH ×2 (08:00→14:00)
[2017-11-01] MEDS ORDERED: Aspirin 81 MG Tab.EC PO SCH (08:00)
[2017-11-01] MEDS ORDERED: amLODIPine 2.5 MG Tab PO SCH (08:00)
[2017-11-01] MEDS ORDERED: Metoprolol Succinate 25 MG Tab.ER PO SCH (08:00)
[2017-11-01] MEDS ORDERED: SALMETEROL PO SCH (08:00)
[2017-11-01] MEDS ORDERED: Divalproex Sodium Delayed-Release 500 MG Tab.CR PO SCH ×2 (08:00→20:00)
[2017-11-01] MEDS ORDERED: ETODOLAC 400 MG PO SCH (08:00)
[2017-11-01] MEDS ORDERED: Venlafaxine 150 MG Cap.ER PO SCH (08:00)
[2017-11-01] MEDS ORDERED: FLUTICASONE PO SCH (08:00)
[2017-11-01 13:41] VITALS: BP 118/72
[2017-11-01] MEDS ORDERED: Simvastatin 20 MG Tab PO SCH (20:00)
--- NOTE | 2017-11-01 21:21 | PCM.DCSUM1 ---
Discharge Summary - Hospital Course Free Text/Narrative:: S: Patient is a 52 year old patient on disabilty who does not have an air conditioner in her apartment. The severe heat caused her to become dehydrated and she was admitted to observation yesterday to get IV fluids and to be watched. See Dr. Mane's note O: AVSS HEENT normal Neck supple without adenopathy Heart RRR without extra sounds Lungs CTAB No signs of dehydration today. See labs. A: Resolved dehydration from heat P; Will discharge her back to her apartment. An air conditioner will be placed in the apartment by building maintenance and she will follow up with her PCP next week in the [facility]. - Discharge Data Discharge Date: 11/01/17 Discharge Disposition: Home, Self-Care 01 Condition: Stable - Discharge Plan Home Medications: Home Meds Aspirin 81 tab PO DAILY 08/05/13 [History] Divalproex Sodium [Divalproex Sodium ER] 500 mg PO DAILY 08/05/13 [History] Omeprazole 20 mg PO ACBREAKFAST 08/05/13 [History] Simvastatin 20 mg PO BEDTIME 08/05/13 [History] Metoprolol Succinate [Toprol XL] 25 mg PO DAILY tab.er 02/28/15 [Rx] Divalproex Sodium [Divalproex Sodium ER] 1,000 mg PO BEDTIME 08/12/15 [History] Meloxicam 15 mg PO DAILY 08/12/15 [History] Nitroglycerin [Nitrostat] 0.4 mg SL ASDIRECTED PRN 08/12/15 [History] Venlafaxine HCl [Venlafaxine HCl ER] 300 mg PO DAILY 08/12/15 [History] amLODIPine [Norvasc] 2.5 mg PO DAILY 08/18/15 [History] busPIRone HCl [Buspirone HCl] 0.5 tab PO TID 08/25/15 [History] ALPRAZolam [Alprazolam] 0.5 mg PO BID 03/31/16 [History] Albuterol Sulfate 2.5 mg IH QID PRN 03/31/16 [History] Etodolac 400 mg PO DAILY 03/31/16 [History] Fluticasone/Salmeterol [Advair 250-50 Diskus] 1 puff PO DAILY 03/31/16 [History] predniSONE [Prednisone] 50 mg PO DAILY 03/31/16 [History] Patient Handouts: Dehydration, Adult, [id number] Forms: ED Department Discharge Referrals: PCP,None [Primary Care Provider] - - Patient Data Vitals - Most Recent: Last Vital Signs Temp 36.7 C 11/01/17 09:00 Pulse 87 11/01/17 09:00 Resp 16 11/01/17 09:00 BP 118/72 11/01/17 09:00 Pulse Ox 98 11/01/17 09:00 I&O - Last 24 hours: Intake & Output 11/01/17 11/01/17 11/01/17 06:59 14:59 22:59 Intake Total 2488 Output Total 500 Balance 1987 Lab Results - Last 24 hrs: Laboratory Results - last 24 hr 10/31/17 11/01/17 11/01/17 Range/Units 19:09 06:50 06:50 WBC 6.2 (4.0-11.0) K/uL RBC 4.30 (3.80-5.80) M/uL Hgb 12.2 (11.5-16.5) g/dL Hct 36.3 L (37.0-47.0) % MCV 84 (76-96) fL MCH 28.4 (27.0-32.0) pg MCHC 33.6 (31.0-35.0) g/dL RDW 15.3 (11.0-16.0) % Plt Count 157 (150-500) K/uL MPV 8.5 (6.0-10.0) fL Neut % (Auto) 26.6 L (45.0-70.0) % Lymph % (Auto) 60.4 H (20.0-40.0) % [place] % (Auto) 11.2 H (3.0-10.0) % Eos % (Auto) 1.6 (1.0-5.0) % Baso % (Auto) 0.2 (0.0-0.5) % Neut # (Auto) 1.65 L (2.00-7.50) K/uL Lymph # (Auto) 3.73 (1.50-4.00) K/uL [place] # (Auto) 0.69 (0.20-0.80) K/uL Eos # (Auto) 0.10 (0.04-0.40) K/uL Baso # (Auto) 0.01 L (0.02-0.10) K/uL Sodium 142 (136-145) mmol/L Potassium 3.8 (3.5-5.1) mmol/L Chloride 106 (98-107) mmol/L Carbon Dioxide 28.3 (21.0-32.0) mmol/L Anion Gap 11.5 (5.0-15.0) mmol/L BUN 18 D (8-26) mg/dL Creatinine 0.97 (0.55-1.02) mg/dL Est Cr Clr Drug Dosing TNP Estimated GFR (MDRD) > 60 (>60) MLS/MIN BUN/Creatinine Ratio 18.6 (6-25) Glucose 115 H (74-100) mg/dL Calcium 8.0 L (8.5-10.1) mg/dL Total Bilirubin 0.2 D (0.0-1.0) mg/dL AST 29 (15-37) U/L ALT 22 (12-78) U/L Alkaline Phosphatase 113 (46-116) U/L Total Protein 6.5 (6.4-8.2) g/dL Albumin 2.6 L (3.4-5.0) g/dL Globulin 3.9 (2.2-4.2) g/dL Albumin/Globulin Ratio 0.7 L (0.8-2.0) Urine Color Yellow Urine Appearance Clear (CLEAR) Urine pH 5.0 (5.0-8.0) Ur Specific [place] >= 1.030 (1.003-1.030) Urine Protein 30 H (NEGATIVE) mg/dL Urine Glucose (UA) Negative (NEGATIVE) mg/dL Urine Ketones Trace H (NEGATIVE) mg/dL Urine Occult Blood Negative (NEGATIVE) Urine Nitrite Negative (NEGATIVE) Urine Bilirubin Small H (NEGATIVE) Urine Urobilinogen 1.0 (0.2-1.0) E.U./dL Ur Leukocyte Esterase Negative (NEGATIVE) Urine RBC Not seen /HPF Urine WBC Not seen /HPF Ur Squamous Epith Cells Few /HPF Urine Bacteria Occasional /HPF Med Orders - Current: Current Medications Discontinued Medications Acetaminophen (Tylenol) 650 mg PO NOW ONE Stop: 10/31/17 19:14 Last Admin: 11/01/17 03:40 Dose: Not Given Albuterol (Proventil Neb Soln) 2.5 mg INH QID PRN PRN Reason: Shortness of Breath Alprazolam (Xanax) 0.5 mg PO BID [facility] Last Admin: 11/01/17 08:00 Dose: Not Given Amlodipine Besylate (Norvasc) 2.5 mg PO DAILY [facility] Last Admin: 11/01/17 08:00 Dose: Not Given Aspirin (Halfprin) 81 mg PO DAILY [facility] Last Admin: 11/01/17 08:00 Dose: Not Given Buspirone HCl (Buspar) 7.5 mg PO TID [facility] Last Admin: 11/01/17 14:00 Dose: Not Given Divalproex Sodium (Depakote) 500 mg PO DAILY [facility] Last Admin: 11/01/17 08:00 Dose: Not Given Divalproex Sodium (Depakote) 1,000 mg PO BEDTIME [facility] Sodium Chloride (Normal Saline) 1,000 mls @ 999 mls/hr IV ASDIRECTED [facility] Last Admin: 10/31/17 23:00 Dose: 125 mls/hr Sodium Chloride (Normal Saline) 1,000 mls @ 125 mls/hr IV ASDIRECTED [facility] Ketorolac Tromethamine (Toradol) 30 mg IVPUSH ONETIME ONE Stop: 10/31/17 19:15 Last Admin: 10/31/17 20:00 Dose: 30 mg Ketorolac Tromethamine (Toradol) Confirm Administered Dose 30 mg .ROUTE .STK- MED ONE Stop: 10/31/17 19:31 Last Admin: 11/01/17 02:03 Dose: Not Given Meloxicam (Mobic) 15 mg PO DAILY [facility] Last Admin: 11/01/17 08:00 Dose: Not Given Metoprolol Succinate (Toprol Xl) 25 mg PO DAILY [facility] Last Admin: 11/01/17 08:00 Dose: Not Given Morphine Sulfate (Morphine) 1 mg IVPUSH Q1H PRN PRN Reason: back pain Last Admin: 10/31/17 20:30 Dose: 1 mg Morphine Sulfate (Morphine) Confirm Administered Dose 2 mg .ROUTE .STK-MED ONE Stop: 10/31/17 20:20 Last Admin: 11/01/17 02:02 Dose: Not Given Nitroglycerin (Nitrostat) 0.4 mg SL ASDIRECTED PRN PRN Reason: chest pain Etodolac [Etodolac] (400mg) 400 mg PO DAILY [facility] Fluticasone/Salmeterol [Advair 250-50 Diskus] 1 Puff 1 puff PO DAILY [facility] Omeprazole (Omeprazole) 20 mg PO ACBREAKFAST [facility] Last Admin: 11/01/17 07:00 Dose: Not Given Prednisone (Prednisone) 50 mg PO DAILY [facility] Last Admin: 11/01/17 08:00 Dose: Not Given Simvastatin (Zocor) 20 mg PO BEDTIME [facility] Venlafaxine HCl (Effexor Xr) 300 mg PO DAILY [facility] Last Admin: 11/01/17 08:00 Dose: Not Given
--- NOTE | 2017-11-02 17:43 | CT ---
DATE OF SERVICE: 10/31/2016 CLINICAL DATA: Fall. UNENHANCED BRAIN CT: Normal exam. [id number] MTDD
--- NOTE | 2017-11-02 17:47 | CT ---
DATE OF SERVICE: CLINICAL DATA: Fall. THORACIC SPINE CT: The vertebral bodies are of average height and in good alignment. No acute fracture or dislocation. There is degenerative disc disease at multiple levels. No other significant findings. IMPRESSION: No acute abnormalities. [id number] [facility]
--- NOTE | 2017-11-02 17:50 | CT ---
DATE OF SERVICE: 10/31/2017 CLINICAL DATA: Fall. LUMBAR SPINE CT: Multislice axial acquisition was performed. Axial images and sagittal and coronal reformations are reviewed. No acute fracture or dislocation. No lytic or blastic bone lesions. There is degenerative disc disease at multiple levels. [id number] [facility]
--- NOTE | 2017-11-02 17:56 | CT ---
DATE OF SERVICE: 10/31/2017 CLINICAL DATA: Fall. CERVICAL SPINE CT: There is mild reversal of the normal cervical lordosis on the sagittal reformations. This is most likely positional or due to muscle spasm. No acute fracture or dislocation. No lytic or blastic bone lesions. There is degenerative disc disease at multiple levels. There are prominent posterior disc margin spurs at the C5-6 level producing narrowing of the spinal canal in the AP dimension. There are degenerative changes of the atlantoaxial articulation. IMPRESSION: No acute abnormalities. [id number] [facility]
== END 2017-11-01 17:52 | disposition home or self-care (01) ==
LOC: LB.ED 18:42 → LB.MS 21:11 → UNDOADMOB 21:11 → LB.MS 21:41
PROVIDERS: ADMIT Family Medicine; ATTEND Family Medicine
DX: E86.0 Dehydration (principal); T67.1XXA Heat syncope, initial encounter; M54.5 Low back pain; M54.2 Cervicalgia; E11.9 Type 2 diabetes mellitus without complications; I10 Essential (primary) hypertension; F17.210 Nicotine dependence, cigarettes, uncomplicated; J44.9 Chronic obstructive pulmonary disease, unspecified; M50.30 Other cervical disc degeneration, unspecified cervical region; M51.34 Other intervertebral disc degeneration, thoracic region; K21.9 Gastro-esophageal reflux disease without esophagitis; F41.9 Anxiety disorder, unspecified; F32.9 Major depressive disorder, single episode, unspecified; F20.9 Schizophrenia, unspecified; E78.00 Pure hypercholesterolemia, unspecified; I73.00 Raynaud's syndrome without gangrene; Z79.82 Long term (current) use of aspirin; Z79.51 Long term (current) use of inhaled steroids; Z79.899 Other long term (current) drug therapy; Z95.5 Presence of coronary angioplasty implant and graft; W19.XXXA Unspecified fall, initial encounter
CPT/HCPCS: 36415; 70450; 72125; 72128; 72131; 80053; 81001; 85025; 96374; 99285; A0425; A0429; J1885; J2270; J7030; 99217; 99218

== ENCOUNTER 2017-11-11 23:10 | Emergency (ER) | payer MEDICARE, MEDICAID ==
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
[2017-11-12 00:24] VITALS: BP 118/56
[2017-11-12] MEDS ORDERED: Sodium Chloride 0.9% 10 ML Syringe FLUSH PRN (00:28)
--- NOTE | 2017-11-12 10:43 | CT ---
UNENHANCED BRAIN CT, 11/12/17 Comparison is made to a prior exam dated 10/31/17. There are periventricular lucencies bilaterally consistent with small vessel ischemic change. No masses or mass effect. No intracranial hemorrhage. No evidence of acute or subacute infarct. No osseous abnormalities. IMPRESSION: No acute abnormalities. [id number] [facility]
--- NOTE | 2017-11-12 10:47 | CT ---
CERVICAL SPINE CT Multislice axial acquisition was performed. Comparison is made to a prior exam dated 10/31/17. No changes. No acute abnormalities. [id number] [facility]
--- NOTE | 2017-11-13 07:53 | CR ---
DATE OF SERVICE: 11/11/2017 CLINICAL DATA: Chest pain. AP PORTABLE CHEST: Normal exam. MTDD
== END 2017-11-12 01:53 | disposition home or self-care (01) ==
LOC: LB.ED 23:10
DX: R07.89 Other chest pain (principal); R51 Headache; I10 Essential (primary) hypertension; J44.9 Chronic obstructive pulmonary disease, unspecified; E11.9 Type 2 diabetes mellitus without complications; F17.210 Nicotine dependence, cigarettes, uncomplicated; Z79.82 Long term (current) use of aspirin; W19.XXXA Unspecified fall, initial encounter; Z79.899 Other long term (current) drug therapy
CPT/HCPCS: 36415; 70450; 71045; 72125; 80048; 81001; 84484; 85025; 93005; 99285-25; A0425; A0429

== ENCOUNTER 2017-11-13 20:51 | Emergency (ER) | payer MEDICARE, MEDICAID ==
[2017-11-13 21:18] VITALS: BP 139/58
[2017-11-13] MEDS ORDERED: Ketorolac 60 MG/2 ML SDV IM ONE (21:18)
[2017-11-13] MEDS ORDERED: Ibuprofen 800 MG Tab ONE (21:45)
--- NOTE | 2017-11-14 00:19 | CR ---
CLINICAL DATA: Fall. LEFT CLAVICLE, 13 NOVEMBER 2017: There is diffuse osteopenia. There are osteoarthritic changes involving the AC joint. No acute abnormalities. No lytic or blastic bone lesions. Job: [id number] [employer]
--- NOTE | 2017-11-14 00:25 | CR ---
CLINICAL DATA: Fall. CERVICAL SPINE, 13 NOVEMBER 2017: No priors. Only C1 through C5 are adequately seen on the lateral view. There is straightening of the normal cervical lordosis. This is probably positional or due to muscle spasm. No acute fracture or dislocation. There is mild degenerative disc disease at multiple levels. The soft tissues are unremarkable. Job: [id number] MTDD
--- NOTE | 2017-11-14 07:47 | ER ---
HPI: A 52-year-old lady who comes in by ambulance after falling in her apartment. She states she was going back to the bedroom to go to sleep when she felt like she was going to black out and she fell. When the ambulance arrived, she was lying on her left side. There was no blood at the scene. They assisted her to the cart and brought her in for evaluation. The patient states that the left side of her neck hurts and the left clavicle area is painful. She denies any other injuries. OBJECTIVE: GENERAL APPEARANCE: The patient is awake and alert. No respiratory distress. She is wearing a C-collar. VITAL SIGNS: Reviewed. She is afebrile. Blood pressure 139/58, O2 sats are 98%. Physical exam, I carefully removed the C-collar. The patient does have tenderness of the paraspinal muscles and the sternocleidomastoid muscle on the left side of her neck. Skin is intact. She also has tenderness with palpation of the lateral half of the left clavicle. The shoulder itself is nontender with palpation. She is able to move the right arm and shoulder and both legs without any difficulty. LAB AND X-RAY: CBC is normal. Basic metabolic panel shows a glucose of 105. Electrolytes are normal. Kidney function is good. X-ray of the C-spine is negative for fracture. I also x-rayed the left clavicle again negative for fracture. DIAGNOSIS: Contusion injury secondary to falling. TREATMENT PLAN: Toradol 60 mg given IM while waiting for labs. This did help the patient's pain. She states that she still feels sore, but the pain is better. We will send her home with ibuprofen 800 mg t.i.d. with food. She is to take the first one tomorrow morning or during the night if she happens to wake up. She is to apply ice packs to the left side of her neck and clavicle area frequently for the next couple of days and activity should be light duty as tolerated. Recheck is pvic HOOK/FAY /[id number]
== END 2017-11-13 22:00 | disposition home or self-care (01) ==
LOC: LB.ED 20:51
DX: S10.93XA Contusion of unspecified part of neck, initial encounter (principal); W19.XXXA Unspecified fall, initial encounter; Y92.032 Bedroom in apartment as the place of occurrence of the external cause
CPT/HCPCS: 36415; 72040; 73000; 80048; 85025; 96372; 99284; A0425; A0429; A9270; J1885

== ENCOUNTER 2017-11-14 21:37 | Emergency (ER) | payer MEDICARE, MEDICAID ==
[2017-11-14] MEDS ORDERED: Sodium Chloride 0.9% 10 ML Syringe FLUSH PRN (21:45)
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
[2017-11-15 02:17] VITALS: BP 132/69
== END 2017-11-14 23:30 | disposition home or self-care (01) ==
LOC: LB.ED 21:37
DX: F41.9 Anxiety disorder, unspecified (principal); R07.89 Other chest pain; Z79.899 Other long term (current) drug therapy; Z79.82 Long term (current) use of aspirin
CPT/HCPCS: 36415; 80048; 84484; 93005; 99285-25; A0425; A0429

== ENCOUNTER 2017-11-24 21:00 | Emergency (ER) | payer MEDICARE, MEDICAID ==
[2017-11-24] MEDS: Aspirin 81 MG Tab.Chew PO ONE (21:07)
[2017-11-24 21:17] VITALS: BP 117/58
[2017-11-24] MEDS: Ketorolac 60 MG/2 ML SDV IM ONE (21:20)
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
== END 2017-11-24 22:25 | disposition home or self-care (01) ==
LOC: LB.ED 21:00
DX: R07.89 Other chest pain (principal)
CPT/HCPCS: 36415; 80053; 84484; 85025; 93005; 96372; 99285; A0425; A0429; A9270; J1885; 80048; 99283

== ENCOUNTER 2018-01-06 21:18 | Emergency (ER) | payer MEDICARE, MEDICAID ==
--- NOTE | 2018-01-06 22:04 | EDM.PDOC ---
ED HPI GENERAL MEDICAL PROBLEM - General Chief Complaint: General Stated Complaint: HEART KEEPS STOPPING Time Seen by Provider: 01/06/18 21:35 Source of Information: Reports: Patient History Limitations: Reports: No Limitations - History of Present Illness INITIAL COMMENTS - FREE TEXT/NARRATIVE: Pt was brought in by ambulance with complaints of chest pain. Pt claims that she has been upset with her family and started to have chest pain which she rate at 4-5/10 and called ambulance. No nausea or vomiting. No diaphoresis. No cough or shortness of breath. Her vitals are stable and her EKG is in NSR. Pain does not get worse with exertion.Hurts to take deep breath. Pt is a frequent visitor to emergency room with chest pain. Onset: Today Onset Date: 01/06/18 Onset Time: 21:00 Duration: Waxing/Waning Location: Reports: Chest Quality: Reports: Ache Severity: Mild Improves with: Reports: None Worsens with: Reports: None Associated Symptoms: Denies: Confusion, Chest Pain, Cough, Diaphoresis, Fever/ Chills, Headaches, Nausea/Vomiting, Rash, Seizure, Shortness of Breath, Syncope , Weakness - Related Data Allergies Allergy/AdvReac Type Severity Reaction Status Date / Time No Known Allergies Allergy Verified 11/14/17 21:39 Home Meds: Home Meds Aspirin 81 tab PO DAILY 08/05/13 [History] Divalproex Sodium [Divalproex Sodium ER] 500 mg PO DAILY 08/05/13 [History] Omeprazole 20 mg PO ACBREAKFAST 08/05/13 [History] Simvastatin 20 mg PO BEDTIME 08/05/13 [History] Metoprolol Succinate [Toprol XL] 25 mg PO DAILY tab.er 02/28/15 [Rx] Divalproex Sodium [Divalproex Sodium ER] 1,000 mg PO BEDTIME 08/12/15 [History] Meloxicam 15 mg PO DAILY 08/12/15 [History] Nitroglycerin [Nitrostat] 0.4 mg SL ASDIRECTED PRN 08/12/15 [History] Venlafaxine HCl [Venlafaxine HCl ER] 300 mg PO DAILY 08/12/15 [History] amLODIPine [Norvasc] 2.5 mg PO DAILY 08/18/15 [History] busPIRone HCl [Buspirone HCl] 0.5 tab PO TID 08/25/15 [History] ALPRAZolam [Alprazolam] 0.5 mg PO BID 03/31/16 [History] Albuterol Sulfate 2.5 mg IH QID PRN 03/31/16 [History] Etodolac 400 mg PO DAILY 03/31/16 [History] Fluticasone/Salmeterol [Advair 250-50 Diskus] 1 puff PO DAILY 03/31/16 [History] predniSONE [Prednisone] 50 mg PO DAILY 03/31/16 [History] Past Medical History HEENT History: Reports: Impaired Vision Cardiovascular History: Reports: Angina, High Cholesterol, Hypertension, Other ( See Below) Other Cardiovascular History: Raynaud phenomenon Respiratory History: Reports: COPD Other Respiratory History: Current active smoker-1ppd x20 years Gastrointestinal History: Reports: GERD Genitourinary History: Reports: UTI, Recurrent [employer] History: Reports: Other (See Below) Other [employer] History: uterine enlargement Musculoskeletal History: Reports: Other (See Below) Other Musculoskeletal History: History of left shoulder pain in 2013 and was seen by OT with reduction in symptoms reported. Neurological History: Reports: Migraines Psychiatric History: Reports: Anxiety, Bipolar, Depression, Panic Attack, Schizophrenia Endocrine/Metabolic History: Reports: Diabetes, Type II Other Endocrine/Metabolic History: pt denies having diabetes 08/26/17 Dermatologic History: Reports: Other (See Below) Other Dermatologic History: Chronic open area present to breast folds - Infectious Disease History Infectious Disease History: Reports: Chicken Pox - Past Surgical History HEENT Surgical History: Reports: Adenoidectomy, Tonsillectomy Other HEENT Surgeries/Procedures: at about 11 year old had tonsils and adenoids removed Cardiovascular Surgical History: Reports: Coronary Artery Stent, Other (See Below) Other Cardiovascular Surgeries/Procedures: pt states she has stents put in her heart in jun GI Surgical History: Reports: Colonoscopy Social & Family History - Family History Family Medical History: Noncontributory HEENT: Reports: Impaired Vision Cardiac: Reports: Other (See Below) Other Cardiac Family History: Unknown Respiratory: Reports: Asthma GI: Reports: None : Reports: None OBGYN: Reports: None, Musculoskeletal: Reports: Arthritis Neurological: Reports: None Psychiatric: Reports: Anxiety, Bipolar, Depression, Panic Attack Endocrine/Metabolic: Reports: None Hematologic: Reports: None Immunologic: Reports: None - Caffeine Use Caffeine Use: Reports: Coffee, Energy Drinks, Soda Other Caffeine Use: 2 bottles a day ED ROS GENERAL - Review of Systems Review Of Systems: See Below Constitutional: Denies: Fever, Chills HEENT: Denies: Rhinitis, Throat Pain, Throat Swelling Respiratory: Denies: Shortness of Breath, Cough, Sputum Cardiovascular: Reports: Chest Pain. Denies: Lightheadedness, Other GI/Abdominal: Denies: Diarrhea, Nausea, Vomiting Musculoskeletal: Denies: Joint Pain, Joint Swelling Skin: Denies: Bruising, Pruritis, Rash, Erythema Neurological: Denies: Confusion, Dizziness, Headache Psychiatric: Reports: Anxiety ED EXAM, GENERAL - Physical Exam Exam: See Below Exam Limited By: No Limitations General Appearance: Alert, WD/WN, No Apparent Distress Eye Exam: Bilateral Eye: EOMI, PERRL Ears: Normal External Exam, Normal Canal, Hearing Grossly Normal, Normal TMs Ear Exam: Bilateral Ear: Auricle Normal, Canal Normal, TM normal Nose: Normal Inspection, Normal Mucosa, No Blood Throat/Mouth: Normal Inspection, Normal Lips, Normal Teeth, Normal Gums, Normal Oropharynx, Normal Voice, No Airway Compromise Head: Atraumatic, Normocephalic Neck: Normal Inspection, Supple, Non-Tender, Full Range of Motion Respiratory/Chest: No Respiratory Distress, Lungs Clear, Normal Breath Sounds, No Accessory Muscle Use, Chest Non-Tender Cardiovascular: Normal Peripheral Pulses, Regular Rate, Rhythm, No Edema, No Gallop, No JVD, No Murmur, No Rub GI/Abdominal: Normal Bowel Sounds, Soft, Non-Tender, No Organomegaly, No Distention, No Abnormal Bruit, No Mass Extremities: Normal Inspection, Normal Range of Motion, Non-Tender, Normal Capillary Refill, No Pedal Edema Neurological: Alert, Oriented, CN II-XII Intact, Normal Cognition, Normal Gait, Normal Reflexes, No Motor/Sensory Deficits Skin Exam: Warm, Intact EKG INTERPRETATION EKG Date: 01/06/18 Time: 21:35 Rhythm: NSR [place]: Normal P-Wave: Present QRS: Normal ST-T: Normal QT: Normal Course - Vital Signs Text/Narrative:: Pt's vital are stable. She appears very comfortable in the emergency room. Not in any distress. Her EKG is in normal sinus rhythm.CBC shows normal white count and hemoglobin. BMP is normal and troponin negative. Pt reassured that her chest pain is related to anxiety. Advised to take her medications rest. She might have pleurisy as she claims it hurt when she takes deep breath. Hence she did receive toradol 30mg Im. Advised to follow up with primary care provider next week. - Orders/Labs/Meds Orders: Active Orders 24 hr Category Date Time Status EKG Documentation Completion [RC] ASDIRECTED Care 01/06/18 21:58 Active Ketorolac [Toradol] Med 01/06/18 22:22 Once 30 mg IM ONETIME ONE Labs: Laboratory Tests 01/06/18 01/06/18 01/06/18 Range/Units 21:55 21:55 21:55 WBC 6.0 (4.0-11.0) K/uL RBC 4.69 (3.80-5.80) M/uL Hgb 13.2 (11.5-16.5) g/dL Hct 39.0 (37.0-47.0) % MCV 83 (76-96) fL MCH 28.1 (27.0-32.0) pg MCHC 33.8 (31.0-35.0) g/dL RDW 15.5 (11.0-16.0) % Plt Count 196 (150-500) K/uL MPV 8.6 (6.0-10.0) fL Neut % (Auto) 32.3 L (45.0-70.0) % Lymph % (Auto) 53.6 H (20.0-40.0) % [place] % (Auto) 12.6 H (3.0-10.0) % Eos % (Auto) 1.2 (1.0-5.0) % Baso % (Auto) 0.3 (0.0-0.5) % Neut # (Auto) 1.95 L (2.00-7.50) K/uL Lymph # (Auto) 3.23 (1.50-4.00) K/uL [place] # (Auto) 0.76 (0.20-0.80) K/uL Eos # (Auto) 0.07 (0.04-0.40) K/uL Baso # (Auto) 0.02 (0.02-0.10) K/uL Sodium 141 (136-145) mmol/L Potassium 3.6 (3.5-5.1) mmol/L Chloride 100 (98-107) mmol/L Carbon Dioxide 29.8 (21.0-32.0) mmol/L Anion Gap 14.8 (5.0-15.0) mmol/L BUN 16 D (8-26) mg/dL Creatinine 1.12 H (0.55-1.02) mg/dL Est Cr Clr Drug Dosing TNP Estimated GFR (MDRD) 51 L (>60) MLS/MIN BUN/Creatinine Ratio 14.3 (6-25) Glucose 96 (74-100) mg/dL Calcium 8.7 (8.5-10.1) mg/dL Troponin I < 0.017 (0.000-0.060) ng/mL Departure - Departure Time of Disposition: 22:15 Disposition: Home, Self-Care 01 Condition: Good Clinical Impression: Non-cardiac chest pain - Discharge Information Forms: ED Department Discharge Additional Instructions: Pt's vital are stable. She appears very comfortable in the emergency room. Not in any distress. Her EKG is in normal sinus rhythm.CBC shows normal white count and hemoglobin. BMP is normal and troponin negative. Pt reassured that her chest pain is related to anxiety. Advised to take her medications rest. She might have pleurisy as she claims it hurt when she takes deep breath. Hence she did receive toradol 30mg Im. Advised to follow up with primary care provider next week. - Problem List & Annotations (1) Chest pain, non-cardiac SNOMED Code(s): 612749124 Code(s): R07.89 - OTHER CHEST PAIN Status: Acute Annotation/Comment:: 11/14 - Noncardiac chest pain and anxiety - Problem List Review Problem List Initiated/Reviewed/Updated: Yes - My Orders Last 24 Hours: My Active Orders 01/06/18 21:58 EKG Documentation Completion [RC] ASDIRECTED 01/06/18 22:22 Ketorolac [Toradol] 30 mg IM ONETIME ONE - Assessment/Plan Last 24 Hours: My Active Orders 01/06/18 21:58 EKG Documentation Completion [RC] ASDIRECTED 01/06/18 22:22 Ketorolac [Toradol] 30 mg IM ONETIME ONE Assessment:: Non cardiac chest pain Plan: Pt's vital are stable. She appears very comfortable in the emergency room. Not in any distress. Her EKG is in normal sinus rhythm.CBC shows normal white count and hemoglobin. BMP is normal and troponin negative. Pt reassured that her chest pain is related to anxiety. Advised to take her medications rest. She might have pleurisy as she claims it hurt when she takes deep breath. Hence she did receive toradol 30mg Im. Advised to follow up with primary care provider next week.
[2018-01-06] MEDS ORDERED: Ketorolac 30 MG/ML SDV IM ONE (22:22)
== END 2018-01-06 22:26 | disposition home or self-care (01) ==
LOC: LB.ED 21:18
DX: R07.89 Other chest pain (principal); I10 Essential (primary) hypertension; J44.9 Chronic obstructive pulmonary disease, unspecified; E11.9 Type 2 diabetes mellitus without complications; F17.210 Nicotine dependence, cigarettes, uncomplicated; Z79.82 Long term (current) use of aspirin; Z79.899 Other long term (current) drug therapy
CPT/HCPCS: 36415; 80048; 84484; 85025; 93005; 96372; 99284-25; A0425; A0429; J1885

== ENCOUNTER 2018-11-20 08:24 | Day surgery (SDC) | payer MEDICARE, MEDICAID ==
[~2018-11-20 08:24] MED LIST changes: -Aspirin 81 MG Tab.Chew PO ONE; +Sodium Chloride 0.9% 1,000 ML IV SCH; -Sodium Chloride 0.9% 10 ML Syringe FLUSH PRN
[2018-11-20] MEDS ORDERED: Metoclopramide 10 MG/2 ML SDV IV PRN (08:30)
[2018-11-20] MEDS ORDERED: Propofol 1,000 MG/100 ML SDV ONE (12:30)
--- NOTE | 2018-11-20 14:59 | OR ---
DATE OF OPERATION: 11/20/2018 PREOPERATIVE DIAGNOSIS: Chronic diarrhea. POSTOPERATIVE DIAGNOSIS: Chronic diarrhea. PROCEDURE: Colonoscopy with polypectomy and biopsies. ANESTHESIA: MAC. ESTIMATED BLOOD LOSS: Minimal. COMPLICATIONS: None. INDICATION FOR THE PROCEDURE: The patient is a 53-year-old female who has never had a colonoscopy before. For the past month, she has had up to 10 watery bowel movements per day. Denies any recent travels. Also, has never had a screening colonoscopy before. DESCRIPTION OF PROCEDURE: Informed consent was obtained from the patient. The patient was taken to the operating room and placed on the table in left lateral decubitus position. Monitored anesthesia care was administered. Digital rectal exam was performed and was normal. Colonoscope was then advanced through the anus and directed toward the cecum. Cecum was reached and identified by appendiceal orifice as well as ileocecal valve. Colonoscope was then slowly withdrawn. She did have 1 small sessile polyp in the rectum, which was removed with cold forceps polypectomy. The remainder of the mucosa was normal. Random biopsies of mucosa were taken on the way out as well. Rectum also appeared otherwise unremarkable. Colonoscope was then removed. FINDINGS: One rectal polyp, otherwise normal mucosa. RECOMMENDATIONS: We will follow up on pathology. We would recommend repeat surveillance colonoscopy in 5 years due to polyp. We will also follow up random mucosal biopsies. Otherwise, we would recommend further stool studies if these have not been completed. May take probiotics and increase fiber as well. We will leave that up to primary care. DAGMAR/FAY /[id number]
[2018-11-20 15:44] VITALS: BP 106/70; PULSE 79
== END 2018-11-20 14:00 | disposition home or self-care (01) ==
LOC: LB.SDS 08:24
PROVIDERS: ATTEND Surgery
DX: D12.8 Benign neoplasm of rectum (principal); K52.9 Noninfective gastroenteritis and colitis, unspecified
CPT/HCPCS: 45380; 88305; J2704; J7030; G0121

== ENCOUNTER 2018-12-12 21:19 | Emergency (ER) | payer MEDICARE, MEDICAID ==
[2018-12-12] MEDS ORDERED: Sodium Chloride 0.9% 1,000 ML IV ONE (21:22)
--- NOTE | 2018-12-12 21:53 | EDM.PDOC ---
ED HPI GENERAL MEDICAL PROBLEM - General Chief Complaint: General Stated Complaint: ABD PAIN Time Seen by Provider: 12/12/18 21:19 Source of Information: Reports: Patient History Limitations: Reports: No Limitations - History of Present Illness INITIAL COMMENTS - FREE TEXT/NARRATIVE: This is a 53yo F here for concerns of nausea and diarrhea. She states she has not eaten since yesterday. She denies any fever or chills, she denies chest pain or shortness of breath. She does have some tenderness of the left side since her colonoscopy. She states she has not been eating well because she feels some nausea and has diarrhea. She goes to the [email or web address] to eat and then eats left overs from that. Onset: Gradual Duration: Day(s): Location: Reports: Generalized Severity: Mild - Related Data Allergies Allergy/AdvReac Type Severity Reaction Status Date / Time No Known Allergies Allergy Verified 05/06/18 20:54 Home Meds: Home Meds Aspirin 81 tab PO DAILY 08/05/13 [History] Divalproex Sodium [Divalproex Sodium ER] 500 mg PO DAILY 08/05/13 [History] Omeprazole 20 mg PO ACBREAKFAST 08/05/13 [History] Simvastatin 20 mg PO BEDTIME 08/05/13 [History] Metoprolol Succinate [Toprol XL] 25 mg PO DAILY tab.er 02/28/15 [Rx] Divalproex Sodium [Divalproex Sodium ER] 1,000 mg PO BEDTIME 08/12/15 [History] Nitroglycerin [Nitrostat] 0.4 mg SL ASDIRECTED PRN 08/12/15 [History] Venlafaxine HCl [Venlafaxine HCl ER] 300 mg PO DAILY 08/12/15 [History] busPIRone HCl [Buspirone HCl] 0.5 tab PO TID 08/25/15 [History] Albuterol Sulfate 2.5 mg IH QID PRN 03/31/16 [History] Fluticasone/Salmeterol [Advair 250-50 Diskus] 1 puff PO DAILY 03/31/16 [History] ARIPiprazole [Abilify] 30 mg PO 11/20/18 [History] Acetaminophen [Tylenol] 650 mg PO Q4H PRN 11/20/18 [History] FLUoxetine [PROzac] 30 mg PO 11/20/18 [History] Furosemide [Lasix] 20 mg PO 11/20/18 [History] Isosorbide Mononitrate [Isosorbide Mononitrate ER] 30 mg PO 11/20/18 [History] Montelukast [Singulair] 10 mg PO DAILY 11/20/18 [History] Potassium Chloride 10 meq PO DAILY 11/20/18 [History] Ranitidine HCl [Ranitidine] 150 mg PO BID 11/20/18 [History] hydrOXYzine pamoate [Vistaril] 1 - 2 tab PO BEDTIME 11/20/18 [History] traZODone HCl [Trazodone HCl] 1 - 2 tab PO 11/20/18 [History] Past Medical History - Past Health History Medical/Surgical History: Denies Medical/Surgical History HEENT History: Reports: Impaired Vision Cardiovascular History: Reports: Angina, High Cholesterol, Hypertension, Other ( See Below) Other Cardiovascular History: Raynaud phenomenon Respiratory History: Reports: COPD Other Respiratory History: Current active smoker-1ppd x20 years Gastrointestinal History: Reports: GERD Genitourinary History: Reports: UTI, Recurrent [employer] History: Reports: Other (See Below) Other [employer] History: uterine enlargement Musculoskeletal History: Reports: Other (See Below) Other Musculoskeletal History: History of left shoulder pain in 2013 and was seen by OT with reduction in symptoms reported. Neurological History: Reports: Migraines Psychiatric History: Reports: Anxiety, Bipolar, Depression, Panic Attack, Schizophrenia Endocrine/Metabolic History: Reports: Diabetes, Type II Other Endocrine/Metabolic History: pt denies having diabetes 08/26/17 Dermatologic History: Reports: Other (See Below) Other Dermatologic History: Chronic open area present to breast folds - Infectious Disease History Infectious Disease History: Reports: Chicken Pox - Past Surgical History HEENT Surgical History: Reports: Adenoidectomy, Tonsillectomy Other HEENT Surgeries/Procedures: at about 11 year old had tonsils and adenoids removed Cardiovascular Surgical History: Reports: Coronary Artery Stent, Other (See Below) Other Cardiovascular Surgeries/Procedures: pt states she has stents put in her heart in [place] GI Surgical History: Reports: Colonoscopy Social & Family History - Family History Family Medical History: Noncontributory HEENT: Reports: Impaired Vision Cardiac: Reports: Other (See Below) Other Cardiac Family History: Unknown Respiratory: Reports: Asthma GI: Reports: None : Reports: None OBGYN: Reports: None, Musculoskeletal: Reports: Arthritis Neurological: Reports: None Psychiatric: Reports: Anxiety, Bipolar, Depression, Panic Attack Endocrine/Metabolic: Reports: None Hematologic: Reports: None Immunologic: Reports: None - Caffeine Use Caffeine Use: Reports: Coffee, Energy Drinks, Soda Other Caffeine Use: 2 bottles a day ED ROS GENERAL - Review of Systems Review Of Systems: ROS reveals no pertinent complaints other than HPI. ED EXAM, GENERAL - Physical Exam Exam: See Below Exam Limited By: No Limitations General Appearance: Alert, WD/WN, No Apparent Distress Eye Exam: Bilateral Eye: EOMI, PERRL Ears: Normal External Exam Nose: Normal Inspection Throat/Mouth: Normal Inspection Head: Atraumatic, Normocephalic Neck: Normal Inspection Respiratory/Chest: No Respiratory Distress, Lungs Clear, Normal Breath Sounds Cardiovascular: Normal Peripheral Pulses, Regular Rate, Rhythm Peripheral Pulses: 2+: Dorsalis Pedis (L), Dorsalis Pedis (R) GI/Abdominal: Normal Bowel Sounds, Soft, Non-Tender Back Exam: Normal Inspection, Full Range of Motion Extremities: Normal Inspection, Normal Range of Motion Neurological: Alert, Oriented, CN II-XII Intact, Normal Reflexes, No Motor/ Sensory Deficits Psychiatric: Flat Affect Course - Orders/Labs/Meds Orders: Active Orders 24 hr Category Date Time Status CULTURE URINE [RM] Stat Lab 12/12/18 21:22 Received Labs: Laboratory Tests 12/12/18 12/12/18 12/12/18 Range/Units 21:22 21:22 21:22 WBC 7.3 (4.0-11.0) K/uL RBC 5.44 (3.80-5.80) M/uL Hgb 15.8 (11.5-16.5) g/dL Hct 45.5 (37.0-47.0) % MCV 84 (76-96) fL MCH 29.0 (27.0-32.0) pg MCHC 34.7 (31.0-35.0) g/dL RDW 14.1 (11.0-16.0) % Plt Count 204 (150-500) K/uL MPV 9.2 (6.0-10.0) fL Neut % (Auto) 41.1 L (45.0-70.0) % Lymph % (Auto) 48.4 H (20.0-40.0) % [place] % (Auto) 9.3 (3.0-10.0) % Eos % (Auto) 0.8 L (1.0-5.0) % Baso % (Auto) 0.4 (0.0-0.5) % Neut # (Auto) 3.01 (2.00-7.50) K/uL Lymph # (Auto) 3.54 (1.50-4.00) K/uL [place] # (Auto) 0.68 (0.20-0.80) K/uL Eos # (Auto) 0.06 (0.04-0.40) K/uL Baso # (Auto) 0.03 (0.02-0.10) K/uL Sodium 142 (136-145) mmol/L Potassium 3.7 (3.5-5.1) mmol/L Chloride 100 (98-107) mmol/L Carbon Dioxide 31.6 (21.0-32.0) mmol/L Anion Gap 14.1 (5.0-15.0) mmol/L BUN 10 (8-26) mg/dL Creatinine 1.05 H (0.55-1.02) mg/dL Est Cr Clr Drug Dosing TNP Estimated GFR (MDRD) 55 L (>60) MLS/MIN BUN/Creatinine Ratio 9.5 (6-25) Glucose 106 H (74-100) mg/dL Calcium 9.1 (8.5-10.1) mg/dL Troponin I (0.000-0.060) ng/mL Urine Color Yellow Urine Appearance Clear (CLEAR) Urine pH 7.5 (5.0-8.0) Ur Specific [place] 1.015 (1.003-1.030) Urine Protein Trace H (NEGATIVE) mg/dL Urine Glucose (UA) Negative (NEGATIVE) mg/dL Urine Ketones Negative (NEGATIVE) mg/dL Urine Occult Blood Trace-intact H (NEGATIVE) Urine Nitrite Negative (NEGATIVE) Urine Bilirubin Negative (NEGATIVE) Urine Urobilinogen 2.0 H (0.2-1.0) E.U./dL Ur Leukocyte Esterase Trace H (NEGATIVE) Urine RBC 0-5 H /HPF Urine WBC 0-5 H /HPF Ur Squamous Epith Cells Many /HPF Urine Bacteria Few /HPF 12/12/18 Range/Units 21:23 WBC (4.0-11.0) K/uL RBC (3.80-5.80) M/uL Hgb (11.5-16.5) g/dL Hct (37.0-47.0) % MCV (76-96) fL MCH (27.0-32.0) pg MCHC (31.0-35.0) g/dL RDW (11.0-16.0) % Plt Count (150-500) K/uL MPV (6.0-10.0) fL Neut % (Auto) (45.0-70.0) % Lymph % (Auto) (20.0-40.0) % [place] % (Auto) (3.0-10.0) % Eos % (Auto) (1.0-5.0) % Baso % (Auto) (0.0-0.5) % Neut # (Auto) (2.00-7.50) K/uL Lymph # (Auto) (1.50-4.00) K/uL [place] # (Auto) (0.20-0.80) K/uL Eos # (Auto) (0.04-0.40) K/uL Baso # (Auto) (0.02-0.10) K/uL Sodium (136-145) mmol/L Potassium (3.5-5.1) mmol/L Chloride (98-107) mmol/L Carbon Dioxide (21.0-32.0) mmol/L Anion Gap (5.0-15.0) mmol/L BUN (8-26) mg/dL Creatinine (0.55-1.02) mg/dL Est Cr Clr Drug Dosing Estimated GFR (MDRD) (>60) MLS/MIN BUN/Creatinine Ratio (6-25) Glucose (74-100) mg/dL Calcium (8.5-10.1) mg/dL Troponin I < 0.017 (0.000-0.060) ng/mL Urine Color Urine Appearance (CLEAR) Urine pH (5.0-8.0) Ur Specific [place] (1.003-1.030) Urine Protein (NEGATIVE) mg/dL Urine Glucose (UA) (NEGATIVE) mg/dL Urine Ketones (NEGATIVE) mg/dL Urine Occult Blood (NEGATIVE) Urine Nitrite (NEGATIVE) Urine Bilirubin (NEGATIVE) Urine Urobilinogen (0.2-1.0) E.U./dL Ur Leukocyte Esterase (NEGATIVE) Urine RBC /HPF Urine WBC /HPF Ur Squamous Epith Cells /HPF Urine Bacteria /HPF Meds: Medications Discontinued Medications Generic Name Dose Route Start Last Admin Trade Name Freq PRN Reason Stop Dose Admin Sodium Chloride 1,000 mls @ 999 mls/hr 12/12/18 21:22 Normal Saline IV 12/12/18 22:22 .BOLUS ONE Departure - Departure Time of Disposition: 22:30 Disposition: Home, Self-Care 01 Condition: Good Clinical Impression: Dehydration UTI (urinary tract infection) Qualifiers: Urinary tract infection type: acute cystitis Hematuria presence: with hematuria Qualified Code(s): N30.01 - Acute cystitis with hematuria - Discharge Information Instructions: Urinary Tract Infection, Adult Forms: ED Department Discharge Additional Instructions: Take Cipro one tab twice a day for 3 days. Return to clinic if not improved. - Problem List & Annotations (1) Dehydration SNOMED Code(s): 03498548 Code(s): E86.0 - DEHYDRATION Status: Acute Priority: High (2) UTI (urinary tract infection) SNOMED Code(s): 46311218 Code(s): N39.0 - URINARY TRACT INFECTION, SITE NOT SPECIFIED Status: Acute Priority: High Qualifiers: Urinary tract infection type: acute cystitis Hematuria presence: with hematuria Qualified Code(s): N30.01 - Acute cystitis with hematuria - Problem List Review Problem List Initiated/Reviewed/Updated: Yes - My Orders Last 24 Hours: My Active Orders 12/12/18 21:22 CULTURE URINE [RM] Stat - Assessment/Plan Last 24 Hours: My Active Orders 12/12/18 21:22 CULTURE URINE [RM] Stat Plan: Counseled on antibiotics use and management. Discussed hydration and keeping cool. Discussed f/u in clinic as directed and as needed. Return for f/u in ER if symptoms return.
[2018-12-12] MEDS ORDERED: Ciprofloxacin 500 MG Tab ONE (22:30)
== END 2018-12-12 22:33 | disposition home or self-care (01) ==
LOC: LB.ED 21:19
DX: N30.01 Acute cystitis with hematuria (principal); E86.0 Dehydration; I10 Essential (primary) hypertension; E78.00 Pure hypercholesterolemia, unspecified; J44.9 Chronic obstructive pulmonary disease, unspecified; F31.9 Bipolar disorder, unspecified; F41.9 Anxiety disorder, unspecified; Z79.899 Other long term (current) drug therapy; Z79.82 Long term (current) use of aspirin
CPT/HCPCS: 36415; 80048; 81001; 84484; 85025; 87086; 96360; 99284; A0425; A0429; A9270; J7030; 99283

== ENCOUNTER 2018-12-18 09:37 | Emergency (ER) | payer MEDICARE, MEDICAID ==
[2018-12-18] MEDS ORDERED: Nitroglycerin 0.4 MG Tab.SL SL PRN (09:55)
[2018-12-18] MEDS ORDERED: Sodium Chloride 0.9% 10 ML Syringe FLUSH PRN (09:55)
--- NOTE | 2018-12-18 10:04 | EDM.PDOC ---
ED HPI GENERAL MEDICAL PROBLEM - General Chief Complaint: Chest Pain Stated Complaint: CHEST PAIN Time Seen by Provider: 12/18/18 09:40 Source of Information: Reports: Patient, RN History Limitations: Reports: No Limitations - History of Present Illness INITIAL COMMENTS - FREE TEXT/NARRATIVE: 53 yr female presents with chest pain. States she did have the pain last night around 7pm and again today around 5am. She presents to the ER after taking the city bus. Rates pain 6/10. She did take a nitro last night and was able to go to sleep. She states she has been having an increase in anxiety lately and having difficulty with people in her apartment complex. She has been trying to stay in her apartment and away from others, but is hearing them in the hallway. States PH did go over and set up medications yesterday, but hasn't taken her am pills today. She usually waits until her lunch comes to have her medication. - Related Data Allergies Allergy/AdvReac Type Severity Reaction Status Date / Time No Known Allergies Allergy Verified 05/06/18 20:54 Home Meds: Home Meds Aspirin 81 tab PO DAILY 08/05/13 [History] Divalproex Sodium [Divalproex Sodium ER] 500 mg PO DAILY 08/05/13 [History] Omeprazole 20 mg PO ACBREAKFAST 08/05/13 [History] Simvastatin 20 mg PO BEDTIME 08/05/13 [History] Metoprolol Succinate [Toprol XL] 25 mg PO DAILY tab.er 02/28/15 [Rx] Divalproex Sodium [Divalproex Sodium ER] 1,000 mg PO BEDTIME 08/12/15 [History] Nitroglycerin [Nitrostat] 0.4 mg SL ASDIRECTED PRN 08/12/15 [History] Venlafaxine HCl [Venlafaxine HCl ER] 300 mg PO DAILY 08/12/15 [History] busPIRone HCl [Buspirone HCl] 0.5 tab PO TID 08/25/15 [History] Albuterol Sulfate 2.5 mg IH QID PRN 03/31/16 [History] Fluticasone/Salmeterol [Advair 250-50 Diskus] 1 puff PO DAILY 03/31/16 [History] ARIPiprazole [Abilify] 30 mg PO 11/20/18 [History] Acetaminophen [Tylenol] 650 mg PO Q4H PRN 11/20/18 [History] FLUoxetine [PROzac] 30 mg PO 11/20/18 [History] Furosemide [Lasix] 20 mg PO 11/20/18 [History] Isosorbide Mononitrate [Isosorbide Mononitrate ER] 30 mg PO 11/20/18 [History] Montelukast [Singulair] 10 mg PO DAILY 11/20/18 [History] Potassium Chloride 10 meq PO DAILY 11/20/18 [History] Ranitidine HCl [Ranitidine] 150 mg PO BID 11/20/18 [History] hydrOXYzine pamoate [Vistaril] 1 - 2 tab PO BEDTIME 11/20/18 [History] traZODone HCl [Trazodone HCl] 1 - 2 tab PO 11/20/18 [History] Past Medical History - Past Health History Medical/Surgical History: Denies Medical/Surgical History HEENT History: Reports: Impaired Vision Cardiovascular History: Reports: Angina, High Cholesterol, Hypertension, Other ( See Below) Other Cardiovascular History: Raynaud phenomenon Respiratory History: Reports: COPD Other Respiratory History: Current active smoker-1ppd x20 years Gastrointestinal History: Reports: GERD Genitourinary History: Reports: UTI, Recurrent NURSERY ATTENDANT History: Reports: Other (See Below) Other NURSERY ATTENDANT History: uterine enlargement Musculoskeletal History: Reports: Other (See Below) Other Musculoskeletal History: History of left shoulder pain in 2013 and was seen by OT with reduction in symptoms reported. Neurological History: Reports: Migraines Psychiatric History: Reports: Anxiety, Bipolar, Depression, Panic Attack, Schizophrenia Endocrine/Metabolic History: Reports: Diabetes, Type II Other Endocrine/Metabolic History: pt denies having diabetes 08/26/17 Dermatologic History: Reports: Other (See Below) Other Dermatologic History: Chronic open area present to breast folds - Infectious Disease History Infectious Disease History: Reports: Chicken Pox - Past Surgical History HEENT Surgical History: Reports: Adenoidectomy, Tonsillectomy Other HEENT Surgeries/Procedures: at about 11 year old had tonsils and adenoids removed Cardiovascular Surgical History: Reports: Coronary Artery Stent, Other (See Below) Other Cardiovascular Surgeries/Procedures: pt states she has stents put in her heart in jun GI Surgical History: Reports: Colonoscopy Social & Family History - Family History Family Medical History: Noncontributory HEENT: Reports: Impaired Vision Cardiac: Reports: Other (See Below) Other Cardiac Family History: Unknown Respiratory: Reports: Asthma GI: Reports: None : Reports: None OBGYN: Reports: None, Musculoskeletal: Reports: Arthritis Neurological: Reports: None Psychiatric: Reports: Anxiety, Bipolar, Depression, Panic Attack Endocrine/Metabolic: Reports: None Hematologic: Reports: None Immunologic: Reports: None - Caffeine Use Caffeine Use: Reports: Coffee, Energy Drinks, Soda Other Caffeine Use: 2 bottles a day ED ROS GENERAL - Review of Systems Review Of Systems: See Below Constitutional: Reports: No Symptoms Respiratory: Reports: No Symptoms Cardiovascular: Reports: Chest Pain GI/Abdominal: Reports: No Symptoms Musculoskeletal: Reports: Other (left shoulder pain) Neurological: Reports: No Symptoms Psychiatric: Reports: Anxiety ED EXAM, GENERAL - Physical Exam Exam: See Below General Appearance: Alert, No Apparent Distress, Anxious Ears: Hearing Grossly Normal Nose: Normal Inspection, Normal Mucosa Throat/Mouth: Normal Voice, No Airway Compromise Head: Atraumatic, Normocephalic Neck: Normal Inspection, Supple, Non-Tender, Full Range of Motion Respiratory/Chest: No Respiratory Distress, Lungs Clear, Normal Breath Sounds Cardiovascular: Normal Peripheral Pulses, Regular Rate, Rhythm, No Edema GI/Abdominal: Normal Bowel Sounds, Soft, Non-Tender Extremities: Normal Inspection, No Pedal Edema, Normal Capillary Refill Neurological: Alert, Oriented Psychiatric: Anxious, Flat Affect Skin Exam: Warm, Dry, Normal Color EKG INTERPRETATION EKG Date: 12/18/18 Rhythm: NSR Course - Vital Signs Last Recorded V/S: Last Vital Signs Temp 97.1 F 12/18/18 09:39 Pulse 74 12/18/18 09:39 Resp 16 12/18/18 09:39 BP 133/74 12/18/18 09:55 Pulse Ox 100 12/18/18 09:39 - Orders/Labs/Meds Orders: Active Orders 24 hr Category Date Time Status Cardiac Monitoring [RC] .As Directed Care 12/18/18 09:55 Active EKG Documentation Completion [RC] ASDIRECTED Care 12/18/18 09:57 Active Nitroglycerin [Nitrostat] Med 12/18/18 09:55 Active 0.4 mg SL Q5M PRN Sodium Chloride 0.9% [Saline Flush] Med 12/18/18 09:55 Active 10 ml FLUSH ASDIRECTED PRN Saline Lock Insert [OM.PC] Stat Oth 12/18/18 09:55 Ordered Resuscitation Status Routine Resus Stat 12/18/18 09:55 Ordered Medication Orders Nitroglycerin (Nitrostat) 0.4 mg SL Q5M PRN PRN Reason: Chest Pain Stop: 12/19/18 09:56 Last Admin: 12/18/18 09:55 Dose: 0.4 mg Sodium Chloride (Saline Flush) 10 ml FLUSH ASDIRECTED PRN PRN Reason: Keep Vein Open Last Admin: 12/18/18 10:00 Dose: 10 ml Labs: Laboratory Tests 12/18/18 12/18/18 12/18/18 Range/Units 10:15 10:15 10:15 WBC 5.0 D (4.0-11.0) K/uL RBC 4.93 (3.80-5.80) M/uL Hgb 14.4 (11.5-16.5) g/dL Hct 42.2 (37.0-47.0) % MCV 86 (76-96) fL MCH 29.2 (27.0-32.0) pg MCHC 34.1 (31.0-35.0) g/dL RDW 14.5 (11.0-16.0) % Plt Count 178 (150-500) K/uL MPV 9.0 (6.0-10.0) fL Neut % (Auto) 29.7 L (45.0-70.0) % Lymph % (Auto) 59.0 H (20.0-40.0) % [place] % (Auto) 8.5 (3.0-10.0) % Eos % (Auto) 2.6 (1.0-5.0) % Baso % (Auto) 0.2 (0.0-0.5) % Neut # (Auto) 1.47 L (2.00-7.50) K/uL Lymph # (Auto) 2.92 (1.50-4.00) K/uL [place] # (Auto) 0.42 (0.20-0.80) K/uL Eos # (Auto) 0.13 (0.04-0.40) K/uL Baso # (Auto) 0.01 L (0.02-0.10) K/uL Sodium 141 (136-145) mmol/L Potassium 4.0 (3.5-5.1) mmol/L Chloride 100 (98-107) mmol/L Carbon Dioxide 31.8 (21.0-32.0) mmol/L Anion Gap 13.2 (5.0-15.0) mmol/L BUN 15 D (8-26) mg/dL Creatinine 1.19 H (0.55-1.02) mg/dL Est Cr Clr Drug Dosing TNP Estimated GFR (MDRD) 47 L (>60) MLS/MIN BUN/Creatinine Ratio 12.6 (6-25) Glucose 127 H (74-100) mg/dL Calcium 9.0 (8.5-10.1) mg/dL Total Bilirubin 0.3 (0.0-1.0) mg/dL AST 23 (15-37) U/L ALT 21 (12-78) U/L Alkaline Phosphatase 93 (46-116) U/L Troponin I < 0.017 (0.000-0.060) ng/mL Total Protein 7.1 (6.4-8.2) g/dL Albumin 3.0 L (3.4-5.0) g/dL Globulin 4.1 (2.2-4.2) g/dL Albumin/Globulin Ratio 0.7 L (0.8-2.0) TSH, Ultra Sensitive 0.962 D (0.358-3.740) uIU/mL Meds: Medications Generic Name Dose Route Start Last Admin Trade Name Frejamaal PRN Reason Stop Dose Admin Nitroglycerin 0.4 mg 12/18/18 09:55 12/18/18 09:55 Nitrostat SL 12/19/18 09:56 0.4 mg Q5M PRN Administration Chest Pain Sodium Chloride 10 ml 12/18/18 09:55 12/18/18 10:00 Saline Flush FLUSH 10 ml ASDIRECTED PRN Administration Keep Vein Open Discontinued Medications Generic Name Dose Route Start Last Admin Trade Name Frejamaal PRN Reason Stop Dose Admin Lorazepam 0.5 mg 12/18/18 10:28 12/18/18 10:34 Ativan PO 12/18/18 10:29 0.5 mg ONETIME ONE Administration Lorazepam Confirm 12/18/18 10:38 12/18/18 10:35 Ativan Administered 12/18/18 10:39 Not Given Dose 0.5 mg .ROUTE .STK-MED ONE Departure - Departure Time of Disposition: 12:10 Disposition: Home, Self-Care 01 Condition: Good Clinical Impression: Anxiety Instructions: Panic Attack, [id number] Referrals: PCP,None [Primary Care Provider] - Forms: ED Department Discharge Care Plan Goals: follow up with Talisha on Friday and Dr. Ordonez on . Keep busy with fun activities, TV etc. - My Orders Last 24 Hours: My Active Orders 12/18/18 09:55 Cardiac Monitoring [RC] .As Directed Nitroglycerin [Nitrostat] 0.4 mg SL Q5M PRN Sodium Chloride 0.9% [Saline Flush] 10 ml FLUSH ASDIRECTED PRN Saline Lock Insert [OM.PC] Stat Resuscitation Status Routine 12/18/18 09:57 EKG Documentation Completion [RC] ASDIRECTED - Assessment/Plan Last 24 Hours: My Active Orders 12/18/18 09:55 Cardiac Monitoring [RC] .As Directed Nitroglycerin [Nitrostat] 0.4 mg SL Q5M PRN Sodium Chloride 0.9% [Saline Flush] 10 ml FLUSH ASDIRECTED PRN Saline Lock Insert [OM.PC] Stat Resuscitation Status Routine 12/18/18 09:57 EKG Documentation Completion [RC] ASDIRECTED Plan: Anxiety, related to situational dispute with social contacts at the apartment. Ativan 0.5 mg PO given X 1 and pt noticed some decrease in behaviors. PH nurse Roxy visited with pt and plan developed of contacts/ activities to do this weekend to improve her outlook. Pt will F/U with PCP next week, F/U with PH nurse Friday, and with homemaker on Friday and psychiatry on .
[2018-12-18] MEDS ORDERED: LORazepam 0.5 MG Tab PO ONE (10:28)
[2018-12-18 10:36] VITALS: BP 133/74
[2018-12-18] MEDS ORDERED: LORazepam 0.5 MG Tab ONE (10:38)
--- NOTE | 2018-12-18 11:00 | CR ---
DATE OF SERVICE: 12/18/18 CLINICAL DATA: Chest Pain AP PORTABLE CHEST: No priors. The patient has taken a poor inspiration. The heart size is normal. The lungs are clear. No pneumothorax. No pleural effusions. No evidence of acute intrathoracic disease. [id number] [facility]
[2018-12-18 11:41] VITALS: PULSE 74
== END 2018-12-18 12:20 | disposition home or self-care (01) ==
LOC: LB.ED 09:37
DX: F41.9 Anxiety disorder, unspecified (principal); K21.9 Gastro-esophageal reflux disease without esophagitis; I10 Essential (primary) hypertension; E78.00 Pure hypercholesterolemia, unspecified; F31.9 Bipolar disorder, unspecified; E11.9 Type 2 diabetes mellitus without complications; Z79.82 Long term (current) use of aspirin; Z98.890 Other specified postprocedural states; Z79.899 Other long term (current) drug therapy
CPT/HCPCS: 36415; 71045; 80053; 84443; 84484; 85025; 93005; 99285; A9270; 99283

== ENCOUNTER 2018-12-24 13:15 | Emergency (ER) | payer MEDICARE, MEDICAID ==
[2018-12-24 13:41] VITALS: BP 117/69; PULSE 83
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
== END 2018-12-24 15:15 ==
LOC: LB.ED 13:15
DX: F41.9 Anxiety disorder, unspecified (principal); F32.9 Major depressive disorder, single episode, unspecified; E11.9 Type 2 diabetes mellitus without complications; I10 Essential (primary) hypertension; E78.00 Pure hypercholesterolemia, unspecified; K21.9 Gastro-esophageal reflux disease without esophagitis; Z79.82 Long term (current) use of aspirin; Z79.899 Other long term (current) drug therapy
CPT/HCPCS: 36415; 80048; 80307; 81001; 84443; 85025; 99285; A0425; A0429; G0480; 99284

== ENCOUNTER 2019-01-02 11:58 | Emergency (ER) | payer MEDICARE, MEDICAID ==
[2019-01-02] MEDS: Ketorolac 60 MG/2 ML SDV IM ONE (12:15)
--- NOTE | 2019-01-02 12:23 | EDM.PDOC ---
ED HPI GENERAL MEDICAL PROBLEM - General Chief Complaint: General Stated Complaint: SYNCOPE Time Seen by Provider: 01/02/19 12:05 Source of Information: Reports: Patient History Limitations: Reports: No Limitations - History of Present Illness INITIAL COMMENTS - FREE TEXT/NARRATIVE: According to patient, she was at restaurant h and finished eating her lunch and got up to pay the bill. Cassandra dizzy ad passed out, hit the back of her head hard and woke up with in few seconds from the ground. Ambulance was called. No nausea or vomiting. Pt's vitals were stable. Pt was brought with C-collar on on the hard board. Rates her pain at 9/10. In the emergency room, pt has been c/o pain in the back of her head and also the neck. C/o of pain in her lower back. No weakness , tingling or numbness in the extremities. No open wounds or bruises. Onset: Today Onset Date: 01/02/19 Onset Time: 12:00 (prior to arrival) Location: Reports: Head, Neck, Back Quality: Reports: Ache Severity: Moderate Improves with: Reports: None Worsens with: Reports: None Associated Symptoms: Reports: Headaches. Denies: Confusion, Chest Pain, Cough, Diaphoresis, Fever/Chills, Nausea/Vomiting, Rash, Seizure, Shortness of Breath, Syncope, Weakness - Related Data Allergies Allergy/AdvReac Type Severity Reaction Status Date / Time No Known Allergies Allergy Verified 01/02/19 12:55 Home Meds: Home Meds Aspirin 81 tab PO DAILY 08/05/13 [History] Divalproex Sodium [Divalproex Sodium ER] 500 mg PO DAILY 08/05/13 [History] Omeprazole 20 mg PO ACBREAKFAST 08/05/13 [History] Simvastatin 20 mg PO BEDTIME 08/05/13 [History] Metoprolol Succinate [Toprol XL] 25 mg PO DAILY tab.er 02/28/15 [Rx] Divalproex Sodium [Divalproex Sodium ER] 1,000 mg PO BEDTIME 08/12/15 [History] Nitroglycerin [Nitrostat] 0.4 mg SL ASDIRECTED PRN 08/12/15 [History] Venlafaxine HCl [Venlafaxine HCl ER] 300 mg PO DAILY 08/12/15 [History] busPIRone HCl [Buspirone HCl] 0.5 tab PO TID 08/25/15 [History] Albuterol Sulfate 2.5 mg IH QID PRN 03/31/16 [History] Fluticasone/Salmeterol [Advair 250-50 Diskus] 1 puff PO DAILY 03/31/16 [History] ARIPiprazole [Abilify] 30 mg PO DAILY 11/20/18 [History] Acetaminophen [Tylenol] 650 mg PO Q4H PRN 11/20/18 [History] FLUoxetine [PROzac] 30 mg PO DAILY 11/20/18 [History] Furosemide [Lasix] 20 mg PO DAILY 11/20/18 [History] Isosorbide Mononitrate [Isosorbide Mononitrate ER] 30 mg PO DAILY 11/20/18 [ History] Montelukast [Singulair] 10 mg PO DAILY 11/20/18 [History] Potassium Chloride 10 meq PO DAILY 11/20/18 [History] Ranitidine HCl [Ranitidine] 150 mg PO BID 11/20/18 [History] hydrOXYzine pamoate [Vistaril] 1 - 2 tab PO BEDTIME 11/20/18 [History] traZODone HCl [Trazodone HCl] 1 tab PO DAILY 11/20/18 [History] Past Medical History - Past Health History Medical/Surgical History: Denies Medical/Surgical History HEENT History: Reports: Impaired Vision Cardiovascular History: Reports: Angina, High Cholesterol, Hypertension, Other ( See Below) Other Cardiovascular History: Raynaud phenomenon Respiratory History: Reports: COPD Other Respiratory History: Current active smoker-1ppd x20 years Gastrointestinal History: Reports: GERD Genitourinary History: Reports: UTI, Recurrent 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 Neurological History: Reports: Migraines Psychiatric History: Reports: Anxiety, Bipolar, Depression, Panic Attack, Schizophrenia Endocrine/Metabolic History: Reports: Diabetes, Type II Other Endocrine/Metabolic History: pt denies having diabetes 08/26/17 Dermatologic History: Reports: Other (See Below) Other Dermatologic History: Chronic open area present to breast folds - Infectious Disease History Infectious Disease History: Reports: Chicken Pox - Past Surgical History HEENT Surgical History: Reports: Adenoidectomy, Tonsillectomy Other HEENT Surgeries/Procedures: at about 11 year old had tonsils and adenoids removed Cardiovascular Surgical History: Reports: Coronary Artery Stent, Other (See Below) Other Cardiovascular Surgeries/Procedures: pt states she has stents put in her heart in jun GI Surgical History: Reports: Colonoscopy Social & Family History - Family History Family Medical History: Noncontributory HEENT: Reports: Impaired Vision Cardiac: Reports: Other (See Below) Other Cardiac Family History: Unknown Respiratory: Reports: Asthma GI: Reports: None : Reports: None OBGYN: Reports: None, Musculoskeletal: Reports: Arthritis Neurological: Reports: None Psychiatric: Reports: Anxiety, Bipolar, Depression, Panic Attack Endocrine/Metabolic: Reports: None Hematologic: Reports: None Immunologic: Reports: None - Caffeine Use Caffeine Use: Reports: Coffee, Energy Drinks, Soda Other Caffeine Use: 2 bottles a day ED ROS GENERAL - Review of Systems Review Of Systems: See Below Constitutional: Denies: Fever, Chills HEENT: Denies: Rhinitis, Throat Pain Respiratory: Denies: Shortness of Breath, Pleuritic Chest Pain, Cough, Sputum Cardiovascular: Denies: Chest Pain, Lightheadedness GI/Abdominal: Denies: Abdominal Pain, Nausea, Vomiting : Denies: Dysuria, Flank Pain, Frequency Musculoskeletal: Reports: Back Pain, Muscle Pain Skin: Denies: Bruising, Pruritis, Rash Neurological: Reports: Headache. Denies: Confusion, Dizziness, Numbness, Tingling, Weakness ED EXAM, GENERAL - Physical Exam Exam: See Below Exam Limited By: No Limitations General Appearance: Alert, WD/WN, No Apparent Distress, Anxious Eye Exam: Bilateral Eye: PERRL Ears: Normal External Exam, Normal Canal, Hearing Grossly Normal, Normal TMs Ear Exam: Bilateral Ear: Auricle Normal, Canal Normal, TM normal Nose: Normal Inspection, Normal Mucosa, No Blood Throat/Mouth: Normal Inspection, Normal Lips, Normal Teeth, Normal Gums, Normal Oropharynx, Normal Voice, No Airway Compromise Head: Atraumatic, Normocephalic, Other (tender over the occiput. No swelling or open laceration noted). No: Facial Swelling, Facial Tenderness, Sinus Tenderness Neck: Normal Inspection, Supple, Full Range of Motion (done after the c-spine was cleared and c-collar removed), Tender Lateral Respiratory/Chest: No Respiratory Distress, Lungs Clear, Normal Breath Sounds, No Accessory Muscle Use, Chest Non-Tender Cardiovascular: Normal Peripheral Pulses, Regular Rate, Rhythm, No Edema, No Gallop, No JVD, No Murmur, No Rub GI/Abdominal: Normal Bowel Sounds, Soft, Non-Tender, No Organomegaly, No Distention, No Abnormal Bruit, No Mass Rectal (Female) Exam: Normal Exam, Normal Rectal Tone, Other (tender on pelvic compression) Back Exam: Normal Inspection, Full Range of Motion, NT Extremities: Normal Inspection, Normal Range of Motion, Non-Tender, Normal Capillary Refill, No Pedal Edema Neurological: Alert, Oriented, CN II-XII Intact, Normal Cognition, Normal Gait, Normal Reflexes, No Motor/Sensory Deficits Course - Vital Signs Text/Narrative:: Pt apparently had finished her lunch and got up and felt dizzy, fell on the ground and hurt her head. Pt has been alert and her blood pressure and vitals have been stable. It does appear like she might have had transient episode of short syncope. Her CT head is negative. Her CT C-spine is negative. C-collar removed. She has mild tenderness int he paraspinal muscles. Good ROM. Pt's pelvic X-ray is negative for fracture or acute injury. Pt reassured, that she has soft tissue injuries. Advised to take it easy for the day. Drink plenty of fluids. Motrin 800mg 3 times daily for pain. Followup in clinic next week for recheck. - Orders/Labs/Meds Meds: Medications Discontinued Medications Generic Name Dose Route Start Last Admin Trade Name Lamar PRN Reason Stop Dose Admin Ketorolac Tromethamine 60 mg 01/02/19 12:13 01/02/19 12:15 Toradol IM 01/02/19 12:14 60 mg ONETIME ONE Administration Departure - Departure Time of Disposition: 14:00 Disposition: Home, Self-Care 01 Condition: Fair Clinical Impression: Soft tissue injury of back, Soft tissue injury of neck, Dizzy spells - Discharge Information *PRESCRIPTION DRUG MONITORING PROGRAM REVIEWED*: Not Applicable *COPY OF PRESCRIPTION DRUG MONITORING REPORT IN PATIENT GLADYS: Not Applicable Instructions: Syncope, [id number]-gb-[id number] Forms: ED Department Discharge Additional Instructions: Get up slowly from sitting and lying position. May use over the counter Motrin for pain as needed and cold compresses for 20 minutes every 4 hours. - Problem List & Annotations (1) Dizzy spells SNOMED Code(s): 519895461 Code(s): R42 - DIZZINESS AND GIDDINESS Status: Acute (2) Soft tissue injury of back SNOMED Code(s): 58630649 Code(s): S39.92XA - UNSPECIFIED INJURY OF LOWER BACK, INITIAL ENCOUNTER Status: Acute (3) Soft tissue injury of neck SNOMED Code(s): 13612656, 510616600 Code(s): S19.9XXA - UNSPECIFIED INJURY OF NECK, INITIAL ENCOUNTER Status: Acute - Problem List Review Problem List Initiated/Reviewed/Updated: Yes - Assessment/Plan Assessment:: Dizzy spell Soft tissue injury of neck and back Plan: Pt apparently had finished her lunch and got up and felt dizzy, fell on the ground and hurt her head. Pt has been alert and her blood pressure and vitals have been stable. It does appear like she might have had transient episode of short syncope. Her CT head is negative. Her CT C-spine is negative. C-collar removed. She has mild tenderness int he paraspinal muscles. Good ROM. Pt's pelvic X-ray is negative for fracture or acute injury. Pt reassured, that she has soft tissue injuries. Advised to take it easy for the day. Drink plenty of fluids. Motrin 800mg 3 times daily for pain. Followup in clinic next week for recheck.
--- NOTE | 2019-01-03 08:02 | CT ---
Date of Service: 01/02/19 Clinical Data: FALL UNENHANCED BRAIN CT: Multislice acquisition through the brain without IV contrast was performed. Comparison is made to a prior unenhanced brain CT dated . There is mild diffuse cerebral atrophy. There are periventricular lucencies bilaterally consistent with small vessel ischemic change. No masses or mass effect. No intracranial hemorrhage. No evidence of acute or subacute infarct. There is mild mucosal thickening in the ethmoid and left sphenoid sinuses. The exam is otherwise negative. IMPRESSION: No acute intracranial abnormalities. [id number] [facility]
--- NOTE | 2019-01-03 08:07 | CT ---
Date of Service: 01/02/19 Clinical Data: FALL CERVICAL SPINE CT: Multislice axial acquisition was performed. Axial images and sagittal and coronal reformations are reviewed. The vertebral bodies are of average height and in good alignment. No acute fracture or dislocation. No lytic or blastic bone lesions. There is degenerative disk disease at multiple levels with disk space narrowing at multiple levels. There is a small paramedian disk protrusion at the C5-6 level on the right. There is fact joint hypertrophy at multiple levels. No significant central or foraminal stenosis. There are degenerative changes involving the atlantoaxial articulation. There are low-density lesions in both lobes of the thyroid. Thyroid ultrasound is recommended. The soft tissues are unremarkable. The visualized lung apices are clear. [id number] [facility]
--- NOTE | 2019-01-03 08:10 | CR ---
Date of Service: 01/02/19 Clinical Data: FALL AP PELVIS: There are mild osteoarthritic changes involving both hip joints. There are degenerative changes involving the SI joints and symphysis pubis. No acute fracture or dislocation. No lytic or blastic bone lesions. [id number] [facility]
== END 2019-01-02 13:20 | disposition home or self-care (01) ==
LOC: LB.ED 11:58
DX: S39.92XA Unspecified injury of lower back, initial encounter (principal); S19.9XXA Unspecified injury of neck, initial encounter; R42 Dizziness and giddiness; I10 Essential (primary) hypertension; E78.00 Pure hypercholesterolemia, unspecified; K21.9 Gastro-esophageal reflux disease without esophagitis; F31.9 Bipolar disorder, unspecified; F41.9 Anxiety disorder, unspecified; E11.9 Type 2 diabetes mellitus without complications; Z79.82 Long term (current) use of aspirin; Z79.899 Other long term (current) drug therapy; W19.XXXA Unspecified fall, initial encounter; Y92.511 Restaurant or cafe as the place of occurrence of the external cause
CPT/HCPCS: 70450; 72125; 72170; 96372; 99284-25; A0425; A0429; J1885

== ENCOUNTER 2019-01-03 18:49 | Emergency (ER) | payer MEDICARE, MEDICAID ==
[2019-01-03 19:17] VITALS: BP 148/76
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
== END 2019-01-03 19:30 | disposition home or self-care (01) ==
LOC: LB.ED 18:49
DX: R45.1 Restlessness and agitation (principal); F31.9 Bipolar disorder, unspecified; F41.9 Anxiety disorder, unspecified; I10 Essential (primary) hypertension; E11.9 Type 2 diabetes mellitus without complications; F17.210 Nicotine dependence, cigarettes, uncomplicated; Z95.5 Presence of coronary angioplasty implant and graft; Z98.890 Other specified postprocedural states; Z79.82 Long term (current) use of aspirin; Z79.899 Other long term (current) drug therapy
CPT/HCPCS: 99283; 99284

== ENCOUNTER 2019-01-14 20:10 | Observation (INO) | payer MEDICARE, MEDICAID ==
[2019-01-14] MEDS ORDERED: Sodium Chloride 0.9% 1,000 ML IV ONE (21:15)
[2019-01-14] MEDS ORDERED: Acetaminophen/HYDROcodone 325-10 MG Tab ONE (21:30)
[2019-01-14] MEDS ORDERED: Acetaminophen/HYDROcodone 325-5 MG Tab PO ONE (21:32)
[2019-01-14] MEDS ORDERED: Divalproex Sodium Delayed-Release 125 MG Cap.Sprink ONE (22:23)
[2019-01-14] MEDS ORDERED: Divalproex Sodium Delayed-Release 125 MG Cap.Sprink PO ONE (22:27)
[2019-01-15 07:25] VITALS: BP 111/71
[2019-01-15] MEDS ORDERED: Acetaminophen 325 MG Tab PO PRN (07:57)
[2019-01-15] MEDS ORDERED: Nitroglycerin 0.4 MG Tab.SL SL PRN (07:57)
[2019-01-15] MEDS ORDERED: Albuterol 0.083% 2.5 MG/3 ML Neb Soln INH PRN (07:57)
[2019-01-15] MEDS ORDERED: VENLAFAXINE HCL 300 MG PO SCH (08:00)
[2019-01-15] MEDS ORDERED: Non-Formulary Medication 1 Each (Fluticasone/Salmeterol [Advair 250-50 Diskus] 1 PUFF) PO SCH (08:00)
[2019-01-15] MEDS ORDERED: ASPIRIN PO SCH (08:00)
[2019-01-15] MEDS ORDERED: busPIRone 15 MG Tab PO SCH (08:00)
[2019-01-15] MEDS ORDERED: DIVALPROEX SODIUM 500 MG PO SCH (08:00)
[2019-01-15] MEDS ORDERED: Furosemide 20 MG Tab PO SCH (08:00)
[2019-01-15] MEDS ORDERED: Metoprolol Succinate 25 MG Tab.ER PO SCH (08:00)
[2019-01-15] MEDS ORDERED: Montelukast 10 MG Tab PO SCH (08:00)
[2019-01-15] MEDS ORDERED: ARIPIPRAZOLE 30 MG PO SCH (08:00)
[2019-01-15] MEDS ORDERED: traZODone 50 MG Tab PO SCH (08:00)
[2019-01-15] MEDS ORDERED: Non-Formulary Medication 1 Each (Potassium Chloride [Potassium Chloride] 10 MEQ) PO SCH (08:00)
[2019-01-15] MEDS ORDERED: Non-Formulary Medication 1 Each (Fluoxetine [Prozac] 30 MG) PO SCH (08:00)
[2019-01-15] MEDS ORDERED: Isosorbide Mononitrate 30 MG Tab.ER PO SCH (08:00)
--- NOTE | 2019-01-15 09:29 | PCM.HP.2 ---
H&P History of Present Illness - General Date of Service: 01/14/19 Admit Problem/Dx: Admission Diagnosis/Problem Admission Diagnosis/Problem Syncope and collapse Source of Information: Patient History Limitations: Reports: No Limitations - History of Present Illness Initial Comments - Free Text/Narative: This is a 53yo F here for a recent fall. She states she got up from [employer] and felt dizzy and fell backwards. She denies loss of consciousness but does states she felt like she may have passed out after the fall. She recalls feeling dizzy when getting up prior to falling. She has some lower back pain that is non-specific. She denies any other injuries. Onset of Symptoms: Reports: Sudden Location: Reports: Generalized Improves with: Reports: None Worsens with: Reports: None Associated Symptoms: Reports: Syncope Lower Back Pain Score (Numeric/FACES): 5 - Related Data Allergies/Adverse Reactions: Allergies Allergy/AdvReac Type Severity Reaction Status Date / Time No Known Allergies Allergy Verified 01/02/19 12:55 Home Medications: Home Meds Aspirin 81 tab PO DAILY 08/05/13 [History] Divalproex Sodium [Divalproex Sodium ER] 500 mg PO DAILY 08/05/13 [History] Omeprazole 20 mg PO ACBREAKFAST 08/05/13 [History] Simvastatin 20 mg PO BEDTIME 08/05/13 [History] Metoprolol Succinate [Toprol XL] 25 mg PO DAILY tab.er 02/28/15 [Rx] Divalproex Sodium [Divalproex Sodium ER] 1,000 mg PO BEDTIME 08/12/15 [History] Nitroglycerin [Nitrostat] 0.4 mg SL ASDIRECTED PRN 08/12/15 [History] Venlafaxine HCl [Venlafaxine HCl ER] 300 mg PO DAILY 08/12/15 [History] busPIRone HCl [Buspirone HCl] 0.5 tab PO TID 08/25/15 [History] Albuterol Sulfate 2.5 mg IH QID PRN 03/31/16 [History] Fluticasone/Salmeterol [Advair 250-50 Diskus] 1 puff PO DAILY 03/31/16 [History] ARIPiprazole [Abilify] 30 mg PO DAILY 11/20/18 [History] Acetaminophen [Tylenol] 650 mg PO Q4H PRN 11/20/18 [History] FLUoxetine [PROzac] 30 mg PO DAILY 11/20/18 [History] Furosemide [Lasix] 20 mg PO DAILY 11/20/18 [History] Isosorbide Mononitrate [Isosorbide Mononitrate ER] 30 mg PO DAILY 11/20/18 [ History] Montelukast [Singulair] 10 mg PO DAILY 11/20/18 [History] Potassium Chloride 10 meq PO DAILY 11/20/18 [History] Ranitidine HCl [Ranitidine] 150 mg PO BID 11/20/18 [History] hydrOXYzine pamoate [Vistaril] 1 - 2 tab PO BEDTIME 11/20/18 [History] traZODone HCl [Trazodone HCl] 1 tab PO DAILY 11/20/18 [History] Past Medical History - Past Health History Medical/Surgical History: Denies Medical/Surgical History HEENT History: Reports: Impaired Vision Cardiovascular History: Reports: Angina, High Cholesterol, Hypertension, Other ( See Below) Other Cardiovascular History: Raynaud phenomenon Respiratory History: Reports: COPD Other Respiratory History: Current active smoker-1ppd x20 years Gastrointestinal History: Reports: GERD Genitourinary History: Reports: UTI, Recurrent [employer] GASOLINE History: Reports: Other (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 Neurological History: Reports: Migraines Psychiatric History: Reports: Anxiety, Bipolar, Depression, Panic Attack, Schizophrenia Endocrine/Metabolic History: Reports: Diabetes, Type II Other Endocrine/Metabolic History: pt denies having diabetes 08/26/17 Dermatologic History: Reports: Other (See Below) Other Dermatologic History: Chronic open area present to breast folds - Infectious Disease History Infectious Disease History: Reports: Chicken Pox - Past Surgical History HEENT Surgical History: Reports: Adenoidectomy, Tonsillectomy Other HEENT Surgeries/Procedures: at about 11 year old had tonsils and adenoids removed Cardiovascular Surgical History: Reports: Coronary Artery Stent, Other (See Below) Other Cardiovascular Surgeries/Procedures: pt states she has stents put in her heart in jun GI Surgical History: Reports: Colonoscopy Female Surgical History: Reports: None Endocrine Surgical History: Reports: None Musculoskeletal Surgical History: Reports: None Social & Family History - Family History Family Medical History: Noncontributory HEENT: Reports: Impaired Vision Cardiac: Reports: Other (See Below) Other Cardiac Family History: Unknown Respiratory: Reports: Asthma GI: Reports: None : Reports: None OBGYN: Reports: None, Musculoskeletal: Reports: Arthritis Neurological: Reports: None Psychiatric: Reports: Anxiety, Bipolar, Depression, Panic Attack Endocrine/Metabolic: Reports: None Hematologic: Reports: None Immunologic: Reports: None - Tobacco Use Smoking Status *Q: Current Some Day Smoker Years of Tobacco use: 15 Packs/Tins Daily: 1 Used Tobacco, but Quit: No Second Hand Smoke Exposure: Yes - Caffeine Use Caffeine Use: Reports: Soda Other Caffeine Use: 2 bottles a day - Recreational Drug Use Recreational Drug Use: No H&P Review of Systems - Review of Systems: Review Of Systems: ROS reveals no pertinent complaints other than HPI. Exam - Exam Exam: See Below - Vital Signs Vital Signs: Last Vital Signs Temp 36.3 C 01/15/19 07:23 Pulse 80 01/15/19 07:23 Resp 20 01/15/19 07:23 BP 111/71 01/15/19 07:23 Pulse Ox 96 01/15/19 07:23 - Exam General: Alert, Oriented, Cooperative HEENT: PERRLA, Conjunctiva Clear, EACs Clear Neck: Supple, Trachea Midline Lungs: Clear to Auscultation, Normal Respiratory Effort Cardiovascular: Regular Rate, Regular Rhythm GI/Abdominal Exam: Normal Bowel Sounds, Soft, Non-Tender Back Exam: Paraspinal Tenderness Extremities: Normal Inspection, Normal Range of Motion - Patient Data Lab Results Last 24 hrs: Laboratory Results - last 24 hr 01/14/19 01/14/19 Range/Units 21:10 21:10 WBC 5.4 (4.0-11.0) K/uL RBC 4.88 (3.80-5.80) M/uL Hgb 14.2 (11.5-16.5) g/dL Hct 42.5 (37.0-47.0) % MCV 87 (76-96) fL MCH 29.1 (27.0-32.0) pg MCHC 33.4 (31.0-35.0) g/dL RDW 14.5 (11.0-16.0) % Plt Count 175 (150-500) K/uL MPV 8.5 (6.0-10.0) fL Neut % (Auto) 36.8 L (45.0-70.0) % Lymph % (Auto) 49.0 H (20.0-40.0) % [place] % (Auto) 12.5 H (3.0-10.0) % Eos % (Auto) 1.5 (1.0-5.0) % Baso % (Auto) 0.2 (0.0-0.5) % Neut # (Auto) 1.98 L (2.00-7.50) K/uL Lymph # (Auto) 2.63 (1.50-4.00) K/uL [place] # (Auto) 0.67 (0.20-0.80) K/uL Eos # (Auto) 0.08 (0.04-0.40) K/uL Baso # (Auto) 0.01 L (0.02-0.10) K/uL Sodium 141 (136-145) mmol/L Potassium 4.1 D (3.5-5.1) mmol/L Chloride 104 (98-107) mmol/L Carbon Dioxide 29.0 (21.0-32.0) mmol/L Anion Gap 12.1 (5.0-15.0) mmol/L BUN 15 D (8-26) mg/dL Creatinine 1.08 H (0.55-1.02) mg/dL Est Cr Clr Drug Dosing TNP Estimated GFR (MDRD) 53 L (>60) MLS/MIN BUN/Creatinine Ratio 13.9 (6-25) Glucose 100 (74-100) mg/dL Calcium 8.6 (8.5-10.1) mg/dL Result Diagrams: 01/14/19 21:10 01/14/19 21:10 - Problem List (1) Orthostatic hypotension SNOMED Code(s): 83417651 ICD Code: I95.1 - ORTHOSTATIC HYPOTENSION Status: Acute Priority: High Current Visit: Yes (2) Vasovagal near syncope SNOMED Code(s): 949557055 ICD Code: R55 - SYNCOPE AND COLLAPSE Status: Acute Priority: High Current Visit: Yes Problem List Initiated/Reviewed/Updated: Yes Orders Last 24hrs: Active Orders 24 hr Category Date Time Status Patient Status [ADT] Routine ADT 01/14/19 22:19 Active Ambulate [RC] ASDIRECTED Care 01/14/19 22:19 Active Ready for Discharge [RC] PER UNIT ROUTINE Care 01/15/19 08:03 Active Vital Signs [RC] 08,12,16,20,00 Care 01/14/19 22:19 Active ARIPiprazole [Abilify] Med 01/15/19 08:00 Ordered 30 mg PO DAILY Acetaminophen [Tylenol] Med 01/15/19 07:57 Ordered 650 mg PO Q4H PRN Albuterol [Proventil Neb Soln] Med 01/15/19 07:57 Ordered 2.5 mg INH QID PRN Aspirin [Aspirin] Med 01/15/19 08:00 Ordered 81 tab PO DAILY Divalproex Sodium [Divalproex Sodium ER] Med 01/15/19 20:00 Ordered 1,000 mg PO BEDTIME Divalproex Sodium [Divalproex Sodium ER] Med 01/15/19 08:00 Ordered 500 mg PO DAILY FLUoxetine [PROzac] Med 01/15/19 08:00 Ordered 30 mg PO DAILY Fluticasone/Salmeterol [Advair 250-50 Diskus] Med 01/15/19 08:00 Ordered 1 puff PO DAILY Furosemide [Lasix] Med 01/15/19 08:00 Ordered 20 mg PO DAILY Isosorbide Mononitrate [Imdur] Med 01/15/19 08:00 Ordered 30 mg PO DAILY Metoprolol Succinate [Toprol XL] Med 01/15/19 08:00 Ordered 25 mg PO DAILY Montelukast [Singulair] Med 01/15/19 08:00 Ordered 10 mg PO DAILY Nitroglycerin [Nitrostat] Med 01/15/19 07:57 Ordered 0.4 mg SL ASDIRECTED PRN Omeprazole Med 01/16/19 07:00 Ordered 20 mg PO ACBREAKFAST Potassium Chloride [Potassium Chloride] Med 01/15/19 08:00 Ordered 10 meq PO DAILY Ranitidine [Zantac] Med 01/15/19 08:00 Ordered 150 mg PO BID Simvastatin [Zocor] Med 01/15/19 20:00 Ordered 20 mg PO BEDTIME Venlafaxine HCl [Venlafaxine HCl ER] Med 01/15/19 08:00 Ordered 300 mg PO DAILY busPIRone [Buspar] Med 01/15/19 08:00 Ordered 7.5 mg PO TID hydrOXYzine pamoate [Vistaril] Med 01/15/19 20:00 Ordered 1 - 2 tab PO BEDTIME traZODone Med 01/15/19 08:00 Ordered 50 mg PO DAILY Medication Orders Acetaminophen (Tylenol) 650 mg PO Q4H PRN PRN Reason: Other Albuterol (Proventil Neb Soln) 2.5 mg INH QID PRN PRN Reason: Shortness of Breath Buspirone HCl (Buspar) 7.5 mg PO TID ELYSE Furosemide (Lasix) 20 mg PO DAILY ELYSE Isosorbide Mononitrate (Imdur) 30 mg PO DAILY ELYSE Metoprolol Succinate (Toprol Xl) 25 mg PO DAILY ELYSE Montelukast Sodium (Singulair) 10 mg PO DAILY ELYSE Nitroglycerin (Nitrostat) 0.4 mg SL ASDIRECTED PRN PRN Reason: chest pain Non-Formulary Medication (Aripiprazole [Abilify]) 30 mg PO DAILY ELYSE Non-Formulary Medication (Aspirin [Aspirin]) 81 tab PO DAILY ELYSE Non-Formulary Medication (Divalproex Sodium [Divalproex Sodium Er]) 500 mg PO DAILY ELYSE Non-Formulary Medication (Divalproex Sodium [Divalproex Sodium Er]) 1,000 mg PO BEDTIME ELYSE Non-Formulary Medication (Fluoxetine [Prozac]) 30 mg PO DAILY ELYSE Non-Formulary Medication (Fluticasone/Salmeterol [Advair 250-50 Diskus]) 1 puff PO DAILY ELYSE Non-Formulary Medication (Hydroxyzine Pamoate [Vistaril]) 1 - 2 tab PO BEDTIME ELYSE Non-Formulary Medication (Potassium Chloride [Potassium Chloride]) 10 meq PO DAILY ELYSE Non-Formulary Medication (Venlafaxine Hcl [Venlafaxine Hcl Er]) 300 mg PO DAILY ELYSE Omeprazole (Omeprazole) 20 mg PO ACBREAKFAST ELYSE Ranitidine HCl (Zantac) 150 mg PO BID ELYSE Simvastatin (Zocor) 20 mg PO BEDTIME ELYSE Trazodone HCl (Trazodone) 50 mg PO DAILY ELYSE Assessment/Plan Comment:: Patient placed in observation for monitoring of symptoms and blood pressure. Discussed orthostatic hypotension and management.
--- NOTE | 2019-01-15 09:33 | PCM.DCSUM1 ---
Discharge Summary - Discharge Data Discharge Date: 01/15/19 Discharge Disposition: Home, Self-Care 01 Condition: Good - Discharge Diagnosis/Problem(s) (1) Orthostatic hypotension SNOMED Code(s): 16948075 ICD Code: I95.1 - ORTHOSTATIC HYPOTENSION Status: Acute Priority: High Current Visit: Yes (2) Vasovagal near syncope SNOMED Code(s): 009672246 ICD Code: R55 - SYNCOPE AND COLLAPSE Status: Acute Priority: High Current Visit: Yes - Patient Instructions Diet: Regular Diet as Tolerated Activity: As Tolerated Notify Provider of: Fever, Increased Pain - Discharge Plan Home Medications: Home Meds Aspirin 81 tab PO DAILY 08/05/13 [History] Divalproex Sodium [Divalproex Sodium ER] 500 mg PO DAILY 08/05/13 [History] Omeprazole 20 mg PO ACBREAKFAST 08/05/13 [History] Simvastatin 20 mg PO BEDTIME 08/05/13 [History] Metoprolol Succinate [Toprol XL] 25 mg PO DAILY tab.er 02/28/15 [Rx] Divalproex Sodium [Divalproex Sodium ER] 1,000 mg PO BEDTIME 08/12/15 [History] Nitroglycerin [Nitrostat] 0.4 mg SL ASDIRECTED PRN 08/12/15 [History] Venlafaxine HCl [Venlafaxine HCl ER] 300 mg PO DAILY 08/12/15 [History] busPIRone HCl [Buspirone HCl] 0.5 tab PO TID 08/25/15 [History] Albuterol Sulfate 2.5 mg IH QID PRN 03/31/16 [History] Fluticasone/Salmeterol [Advair 250-50 Diskus] 1 puff PO DAILY 03/31/16 [History] ARIPiprazole [Abilify] 30 mg PO DAILY 11/20/18 [History] Acetaminophen [Tylenol] 650 mg PO Q4H PRN 11/20/18 [History] FLUoxetine [PROzac] 30 mg PO DAILY 11/20/18 [History] Furosemide [Lasix] 20 mg PO DAILY 11/20/18 [History] Isosorbide Mononitrate [Isosorbide Mononitrate ER] 30 mg PO DAILY 11/20/18 [ History] Montelukast [Singulair] 10 mg PO DAILY 11/20/18 [History] Potassium Chloride 10 meq PO DAILY 11/20/18 [History] Ranitidine HCl [Ranitidine] 150 mg PO BID 11/20/18 [History] hydrOXYzine pamoate [Vistaril] 1 - 2 tab PO BEDTIME 11/20/18 [History] traZODone HCl [Trazodone HCl] 1 tab PO DAILY 11/20/18 [History] Patient Handouts: Orthostatic Hypotension - Discharge Summary/Plan Comment DC Time >30 min.: No Discharge Summary/Plan Comment: Counseled patient on orthostatic hypotension. Discussed hydration and food intake. Discussed f/u in clinic next week for recheck and f/u. Patient agrees to f/u and close monitoring of symptoms and rtc or ER as needed. - General Info Date of Service: 01/15/19 Functional Status: Reports: Tolerating Diet, Ambulating - Review of Systems General: Reports: No Symptoms HEENT: Reports: No Symptoms Pulmonary: Reports: No Symptoms Cardiovascular: Reports: No Symptoms Gastrointestinal: Reports: No Symptoms Genitourinary: Reports: No Symptoms Musculoskeletal: Reports: Back Pain Skin: Reports: No Symptoms Neurological: Reports: No Symptoms Psychiatric: Reports: No Symptoms - Patient Data Vitals - Most Recent: Last Vital Signs Temp 36.3 C 01/15/19 07:23 Pulse 80 01/15/19 07:23 Resp 20 01/15/19 07:23 BP 111/71 01/15/19 07:23 Pulse Ox 96 01/15/19 07:23 I&O - Last 24 hours: Intake & Output 01/14/19 01/15/19 01/15/19 22:59 06:59 14:59 Intake Total 365 Balance 365 Lab Results - Last 24 hrs: Laboratory Results - last 24 hr 01/14/19 01/14/19 Range/Units 21:10 21:10 WBC 5.4 (4.0-11.0) K/uL RBC 4.88 (3.80-5.80) M/uL Hgb 14.2 (11.5-16.5) g/dL Hct 42.5 (37.0-47.0) % MCV 87 (76-96) fL MCH 29.1 (27.0-32.0) pg MCHC 33.4 (31.0-35.0) g/dL RDW 14.5 (11.0-16.0) % Plt Count 175 (150-500) K/uL MPV 8.5 (6.0-10.0) fL Neut % (Auto) 36.8 L (45.0-70.0) % Lymph % (Auto) 49.0 H (20.0-40.0) % [place] % (Auto) 12.5 H (3.0-10.0) % Eos % (Auto) 1.5 (1.0-5.0) % Baso % (Auto) 0.2 (0.0-0.5) % Neut # (Auto) 1.98 L (2.00-7.50) K/uL Lymph # (Auto) 2.63 (1.50-4.00) K/uL [place] # (Auto) 0.67 (0.20-0.80) K/uL Eos # (Auto) 0.08 (0.04-0.40) K/uL Baso # (Auto) 0.01 L (0.02-0.10) K/uL Sodium 141 (136-145) mmol/L Potassium 4.1 D (3.5-5.1) mmol/L Chloride 104 (98-107) mmol/L Carbon Dioxide 29.0 (21.0-32.0) mmol/L Anion Gap 12.1 (5.0-15.0) mmol/L BUN 15 D (8-26) mg/dL Creatinine 1.08 H (0.55-1.02) mg/dL Est Cr Clr Drug Dosing TNP Estimated GFR (MDRD) 53 L (>60) MLS/MIN BUN/Creatinine Ratio 13.9 (6-25) Glucose 100 (74-100) mg/dL Calcium 8.6 (8.5-10.1) mg/dL Med Orders - Current: Current Medications Albuterol (Proventil Neb Soln) 2.5 mg INH QID PRN PRN Reason: Shortness of Breath Discontinued Medications Acetaminophen (Tylenol) 650 mg PO Q4H PRN PRN Reason: Other Hydrocodone Bitart/Acetaminophen ([place] 325-10 Mg) Confirm Administered Dose 1 tab .ROUTE .STK-MED ONE Stop: 01/14/19 21:31 Last Admin: 01/14/19 21:42 Dose: Not Given Hydrocodone Bitart/Acetaminophen ([place] 325-5 Mg) 1 tab PO ONETIME ONE Stop: 01/14/19 21:33 Last Admin: 01/14/19 21:41 Dose: 1 tab Buspirone HCl (Buspar) 7.5 mg PO TID ELYSE Divalproex Sodium (Depakote Sprinkle) Confirm Administered Dose 250 mg .ROUTE .STK-MED ONE Stop: 01/14/19 22:24 Last Admin: 01/14/19 22:28 Dose: Not Given Divalproex Sodium (Depakote Sprinkle) 250 mg PO ONETIME ONE Stop: 01/14/19 22:28 Last Admin: 01/14/19 22:31 Dose: 250 mg Furosemide (Lasix) 20 mg PO DAILY [facility] Sodium Chloride (Normal Saline) 1,000 mls @ 999 mls/hr IV .BOLUS ONE Stop: 01/14/19 22:15 Last Admin: 01/14/19 21:00 Dose: 999 mls/hr Isosorbide Mononitrate (Imdur) 30 mg PO DAILY [facility] Metoprolol Succinate (Toprol Xl) 25 mg PO DAILY ELYSE Montelukast Sodium (Singulair) 10 mg PO DAILY ELYSE Nitroglycerin (Nitrostat) 0.4 mg SL ASDIRECTED PRN PRN Reason: chest pain Non-Formulary Medication (Aripiprazole [Abilify]) 30 mg PO DAILY ELYSE Non-Formulary Medication (Aspirin [Aspirin]) 81 tab PO DAILY ELYSE Non-Formulary Medication (Divalproex Sodium [Divalproex Sodium Er]) 500 mg PO DAILY ELYSE Non-Formulary Medication (Divalproex Sodium [Divalproex Sodium Er]) 1,000 mg PO BEDTIME ELYSE Non-Formulary Medication (Fluoxetine [Prozac]) 30 mg PO DAILY ELYSE Non-Formulary Medication (Fluticasone/Salmeterol [Advair 250-50 Diskus]) 1 puff PO DAILY ELYSE Non-Formulary Medication (Hydroxyzine Pamoate [Vistaril]) 1 - 2 tab PO BEDTIME ELYSE Non-Formulary Medication (Potassium Chloride [Potassium Chloride]) 10 meq PO DAILY ELYSE Non-Formulary Medication (Venlafaxine Hcl [Venlafaxine Hcl Er]) 300 mg PO DAILY ELYSE Omeprazole (Omeprazole) 20 mg PO ACBREAKFAST ELYSE Ranitidine HCl (Zantac) 150 mg PO BID ELYSE Simvastatin (Zocor) 20 mg PO BEDTIME ELYSE Trazodone HCl (Trazodone) 50 mg PO DAILY ELYSE - Exam General: Reports: Alert, Oriented, Cooperative HEENT: Reports: Pupils Equal, Pupils Reactive, EOMI Neck: Reports: Supple Lungs: Reports: Clear to Auscultation, Normal Respiratory Effort Cardiovascular: Reports: Regular Rate, Regular Rhythm Back Exam: Reports: Normal Inspection Extremities: Normal Inspection
[2019-01-15] MEDS ORDERED: Simvastatin 20 MG Tab PO SCH (20:00)
[2019-01-15] MEDS ORDERED: HYDROXYZINE PAMOATE PO SCH (20:00)
[2019-01-15] MEDS ORDERED: DIVALPROEX SODIUM 1000 MG PO SCH (20:00)
[2019-01-16] MEDS ORDERED: Omeprazole 20 MG Cap.CR PO SCH (07:00)
== END 2019-01-15 09:08 | disposition home or self-care (01) ==
LOC: LB.ED 20:10 → UNDOADMOB 21:45 → LB.MS 21:45
PROVIDERS: ADMIT Family Medicine; ATTEND Family Medicine
DX: I95.1 Orthostatic hypotension (principal); E78.00 Pure hypercholesterolemia, unspecified; I10 Essential (primary) hypertension; J44.9 Chronic obstructive pulmonary disease, unspecified; K21.9 Gastro-esophageal reflux disease without esophagitis; F41.9 Anxiety disorder, unspecified; F31.9 Bipolar disorder, unspecified; E11.9 Type 2 diabetes mellitus without complications; F17.210 Nicotine dependence, cigarettes, uncomplicated; Z79.82 Long term (current) use of aspirin; Z79.899 Other long term (current) drug therapy; Z79.51 Long term (current) use of inhaled steroids
CPT/HCPCS: 36415; 80048; 85025; 96360; 96361; 99284; A0425; A0429; A9270; G0378; J7030

== ENCOUNTER 2019-01-16 23:34 | Emergency (ER) | payer MEDICARE, MEDICAID ==
[2019-01-17 01:20] VITALS: BP 136/70; PULSE 84
--- NOTE | 2019-01-17 04:40 | ER ---
REASON FOR EMERGENCY ROOM VISIT: Syncope. HISTORY: This 53-year-old woman was brought in by ambulance after having passed out at home after standing up. Apparently, she was sitting at home. Apparently, she had earlier in the day, had a verbal altercation with her landlord and got somewhat upset. This sort of thing is common with her neighbors, etc., judging from her past emergency room visits. Sometime after that, after sitting down for a period of time she stood up, she states she felt dizzy and had a fainting spell. She fell to the floor, worked her way up to the chair , and eventually called for an ambulance because of this spell. She denied any chest pain or shortness of breath. She states she was diaphoretic. She had no nausea or vomiting. She had no back pain or arm pain at this time. She has a truly impressive history of multiple visits to the emergency room for a wide variety of problems. Just in the past month, in addition to bambi's visit, she has had 6 emergency room visits. To summarize those visits : 1. She was seen here with nausea and diarrhea as well as dehydration and was sent home after being diagnosed with the UTI. 2. She has been seen here twice in the past month for chest pain, and workup on both occasions was negative. 3. She was seen here in the middle of December for psychiatric reasons, and eventually was transferred to the hospital in [place] where she states she was treated as an inpatient for alcoholism. 4. Two visits to the emergency room for syncopal spells in addition to bambi' s visit. She has been under the care of a psychiatrist, Dr. Ordonez, and he was her physician when she was hospitalized in [place] according to the patient. She tells me that she was discharged following 1 week at the hospital in [place] and that she was told that she needed to attend the AA meetings. She states that she is awaiting Dr. Ordonez to find her AA meetings to attend but admits that she does not feel like she needs AA. She denies any drinking over the past 6 weeks. SOCIAL HISTORY: The patient lives alone. She states that she has been since 1982, but the nurses here tell me her just a few years ago. She states she quit drinking 3 weeks ago and yet she was hospitalized for this as mentioned above. She does have a history of alcohol abuse and readily admits it. She denies any other drugs of abuse, although urine screens in the past have been positive for opiates and methadone. 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 During the course of our conversation, she stated that she likes coming to the emergency room, especially on those occasions when she feels particularly lonely. It sounds like she has had a rough goal of it in terms of interpersonal relationships with friends and neighbors, etc. and often times, this has triggered a variety of problems that have been common for her visits to the emergency room. She was last here only a few days ago where she had a similar syncopal episode and at that time was treated with IV fluids and monitored overnight and subsequently discharged the following morning. The patient does see her provider Talisha De La Fuente on a fairly regular basis. She is also seen weekly by home health nurse to set up her medication boxes which she utilizes to keep all of her medications straight. PAST MEDICAL HISTORY: Her past medical history is extensive. Please see the electronic medical record. It includes: 1. Coronary artery disease with a history of stents. 2. Chest pain. 3. Constipation and other GI disturbances. 4. COPD. 5. History of smoking as mentioned above. 6. Extensive psychiatric history including generalized anxiety disorder, depression, bipolar, and even schizophrenia. 7. History of syncope on multiple occasions. 8. History of recurrent chest pain. 9. Hyperlipidemia. 10.Hypertension. 11.Intertrigo. MEDICATIONS: Reviewed. Please see electronic medical record. Her list of medications is voluminous. These were all reviewed. REVIEW OF SYSTEMS: In addition to the above, she has a number of other positives which include: 1. Decreasing visual acuity for several years. 2. Headaches, frontal, chronic for several years. 3. Back pain, chronic. 4. Dyspnea, chronic, attributed to cigarette smoking. 5. Chest pain she states is present "all the time.". 6. Episodes of diarrhea and constipation. 7. She does not have any urinary symptoms and denies any arthritis-type complaints. PHYSICAL EXAMINATION: GENERAL: She is appropriate, calm, and in no acute distress. She is not diaphoretic. VITAL SIGNS: Her blood pressure is 124/64, respiratory rate is 20, heart rate is 79, O2 sats 100% on room air. She did not have any orthostatic drop, and we did check orthostatic vitals, and these were documented. HEENT: Her head is normocephalic. She has poor oral hygiene and multiple dental caries. Her pharynx is normal. NECK: Examination is supple. No bruits. No JVD. No adenopathy. CHEST: Clear to auscultation. CARDIAC: Regular rate without murmur. ABDOMEN: Soft, obese, and nontender. No hepatosplenomegaly or other palpable masses. There is no CVA tenderness. EXTREMITIES: She has some mild bilateral ankle edema. Normal pulses. NEUROLOGIC: She moves all 4 extremities to command. She is able to ambulate on her own without difficulty. Deep tendon reflexes were not tested. Cranial nerves 2 through 12 are intact. SKIN: vitiligo, most noticeable on her arms. LABORATORY DATA: Her urinalysis was negative. Urine drug screen was once again positive for opiates and methadone. Her CMP was essentially within normal with no significant abnormalities. Her troponin 1 is negative at less than 0.017. Her CBC is within normal limits. Her EKG shows normal sinus rhythm and no acute changes. Her chest x- ray shows no active pulmonary disease or cardiomegaly or effusion. IMPRESSION: Syncopal episode with no orthostatic changes and no reason to suspect dehydration. PLAN: One thing that is conspicuously lacking in her workup is a Holter monitoring, and that would be something important to pursue in someone like this. I had a long discussion with the patient as well as the nurses regarding her multiple ER visits, and this seems to be continuing on and on indefinitely with no end in sight. I am not sure I have a good solution to her problem, however, it seems to me that a conference involving all of her providers and caregivers is in order and would be sensible at this juncture. I did encourage the patient to follow up with her provider, Talisha De La Fuente, and she tells me that she has an appointment scheduled for Friday of this week. We will set her up with Holter monitoring tonight and see to it that someone is able to send the device in. This was all reviewed with the patient. All questions were answered. She understands and agrees with this plan. BUNNY /[id number] MTDD
--- NOTE | 2019-01-17 14:26 | CR ---
Date of Service: 01/17/19 Clinical Data: syncope, COPD PA AND LATERAL CHEST: Comparison is made to a prior exam dated 12/21/18. The heart size is normal. The lungs are clear. No changes from the prior exam. No evidence of acute intrathoracic disease. [id number] [facility]
== END 2019-01-17 02:55 | disposition home or self-care (01) ==
LOC: LB.ED 23:34
DX: R55 Syncope and collapse (principal); I25.10 Atherosclerotic heart disease of native coronary artery without angina pectoris; I10 Essential (primary) hypertension; Z87.891 Personal history of nicotine dependence
CPT/HCPCS: 0296T; 0297T; 36415; 71046; 80053; 80307; 81003; 82962; 84484; 85025; 93005; 99283; 99284; A0425; A0429; G0480

== ENCOUNTER 2019-01-20 18:28 | Emergency (ER) | payer MEDICARE, MEDICAID ==
[2019-01-20] MEDS ORDERED: LORazepam 0.5 MG Tab PO ONE (18:52)
[2019-01-20] MEDS ORDERED: LORazepam 1 MG Tab ONE (19:00)
--- NOTE | 2019-01-20 19:20 | EDM.PDOC ---
ED HPI GENERAL MEDICAL PROBLEM - General Chief Complaint: General Stated Complaint: Dizziness, Shortness of breath Time Seen by Provider: 01/20/19 18:40 Source of Information: Reports: Patient History Limitations: Reports: No Limitations - History of Present Illness INITIAL COMMENTS - FREE TEXT/NARRATIVE: This is a 53yo F here for concerns of dizziness, diaphoresis, shortness of breath and anxiety. She states her symptoms have improved since arriving in the ER. She notes that her symptoms started when she heard her landlord talking about her when she had her window open. She got anxious and angry and everything started. Onset: Sudden Duration: Minutes:, Improving Location: Reports: Generalized Severity: Moderate Improves with: Reports: Rest Worsens with: Reports: None - Related Data Allergies Allergy/AdvReac Type Severity Reaction Status Date / Time No Known Allergies Allergy Verified 01/16/19 23:58 Home Meds: Home Meds Aspirin 81 tab PO DAILY 08/05/13 [History] Divalproex Sodium [Divalproex Sodium ER] 500 mg PO DAILY 08/05/13 [History] Omeprazole 20 mg PO ACBREAKFAST 08/05/13 [History] Simvastatin 40 mg PO BEDTIME 08/05/13 [History] Divalproex Sodium [Divalproex Sodium ER] 1,000 mg PO BEDTIME 08/12/15 [History] Nitroglycerin [Nitrostat] 0.4 mg SL ASDIRECTED PRN 08/12/15 [History] Venlafaxine HCl [Venlafaxine HCl ER] 300 mg PO QPM 08/12/15 [History] busPIRone HCl [Buspirone HCl] 15 mg PO TID 08/25/15 [History] ARIPiprazole [Abilify] 30 mg PO QPM 11/20/18 [History] Acetaminophen [Tylenol] 650 mg PO Q4H PRN 11/20/18 [History] FLUoxetine [PROzac] 40 mg PO DAILY 11/20/18 [History] Furosemide [Lasix] 20 mg PO DAILY 11/20/18 [History] Isosorbide Mononitrate [Isosorbide Mononitrate ER] 30 mg PO DAILY 11/20/18 [ History] Montelukast [Singulair] 10 mg PO QPM 11/20/18 [History] Ranitidine HCl [Ranitidine] 150 mg PO BID 11/20/18 [History] hydrOXYzine pamoate [Vistaril] 50 mg PO TID PRN 11/20/18 [History] traZODone HCl [Trazodone HCl] 1 - 2 tab PO QPM PRN 11/20/18 [History] Albuterol [Ventolin HFA] 1 - 2 puff INH Q6H PRN 01/17/19 [History] Albuterol/Ipratropium [DuoNeb 3.0-0.5 MG/3 ML] 1 ampule INH Q4H PRN 01/17/19 [ History] Budesonide/Formoterol Fumarate [Symbicort 80-4.5 Mcg Inhaler] 1 - 2 puff INH DAILY 01/17/19 [History] Divalproex Sodium [Divalproex Sodium ER] 250 mg PO QPM 01/17/19 [History] Fluticasone Propionate [Flonase] 1 - 2 spray NASBOTH DAILY 01/17/19 [History] Loperamide HCl [Loperamide] 1 - 2 cap PO ASDIRECTED PRN 01/17/19 [History] Metoprolol Succinate [Toprol XL] 50 mg PO DAILY 01/17/19 [History] Nystatin [Nystatin Crm] 1 applic TOP TID 01/17/19 [History] Polyethylene Glycol 3350 [MiraLAX] 17 gm PO DAILY PRN 01/17/19 [History] Past Medical History - Past Health History Medical/Surgical History: Denies Medical/Surgical History HEENT History: Reports: Impaired Vision Cardiovascular History: Reports: Angina, CAD, High Cholesterol, Hypertension, Other (See Below) Other Cardiovascular History: Raynaud phenomenon Respiratory History: Reports: COPD, SOB Other Respiratory History: Current active smoker-1ppd x20 years Gastrointestinal History: Reports: Chronic Constipation, Chronic Diarrhea, GERD Genitourinary History: Reports: UTI, Recurrent 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 Neurological History: Reports: Migraines Psychiatric History: Reports: Anxiety, Bipolar, Depression, Panic Attack, Schizophrenia Endocrine/Metabolic History: Reports: Obesity/BMI 30+ Other Endocrine/Metabolic History: pt denies having diabetes 08/26/17 Dermatologic History: Reports: Other (See Below) Other Dermatologic History: Chronic open area present to breast folds - Infectious Disease History Infectious Disease History: Reports: Chicken Pox - Past Surgical History HEENT Surgical History: Reports: Adenoidectomy, Tonsillectomy Cardiovascular Surgical History: Reports: Coronary Artery Stent Respiratory Surgical History: Reports: None GI Surgical History: Reports: Colonoscopy Female Surgical History: Reports: None Endocrine Surgical History: Reports: None Neurological Surgical History: Reports: None Musculoskeletal Surgical History: Reports: None Social & Family History - Family History Family Medical History: Noncontributory HEENT: Reports: Impaired Vision Cardiac: Reports: Other (See Below) Other Cardiac Family History: Unknown Respiratory: Reports: Asthma GI: Reports: None : Reports: None OBGYN: Reports: None, Musculoskeletal: Reports: Arthritis Neurological: Reports: None Psychiatric: Reports: Anxiety, Bipolar, Depression, Panic Attack Endocrine/Metabolic: Reports: None Hematologic: Reports: None Immunologic: Reports: None - Caffeine Use Caffeine Use: Reports: Soda Other Caffeine Use: 2 bottles a day ED ROS GENERAL - Review of Systems Review Of Systems: ROS reveals no pertinent complaints other than HPI. ED EXAM, GENERAL - Physical Exam Exam: See Below Exam Limited By: No Limitations General Appearance: Alert, WD/WN, No Apparent Distress Eye Exam: Bilateral Eye: EOMI, PERRL Ears: Normal External Exam Nose: Normal Inspection Throat/Mouth: Normal Inspection Head: Atraumatic, Normocephalic Neck: Normal Inspection Respiratory/Chest: No Respiratory Distress, Lungs Clear, Normal Breath Sounds Cardiovascular: Normal Peripheral Pulses, Regular Rate, Rhythm GI/Abdominal: Normal Bowel Sounds Neurological: Alert, Oriented, CN II-XII Intact Course - Orders/Labs/Meds Meds: Medications Discontinued Medications Generic Name Dose Route Start Last Admin Trade Name Freq PRN Reason Stop Dose Admin Lorazepam 0.5 mg 01/20/19 18:52 01/20/19 18:57 Ativan PO 01/20/19 18:53 0.5 mg ONETIME ONE Administration Meclizine HCl 25 mg 01/20/19 18:52 01/20/19 18:57 Antivert PO 01/20/19 18:53 25 mg NOW ONE Administration Departure - Departure Time of Disposition: 19:25 Disposition: Home, Self-Care 01 Condition: Good Clinical Impression: Anxiety, Dizziness - Discharge Information - Problem List & Annotations (1) Panic anxiety syndrome SNOMED Code(s): 294310579 Code(s): F41.0 - PANIC DISORDER [EPISODIC PAROXYSMAL ANXIETY] Status: Acute (2) Anxiety SNOMED Code(s): 51777533 Code(s): F41.9 - ANXIETY DISORDER, UNSPECIFIED Status: Acute (3) Dizziness SNOMED Code(s): 921789453, 638016501 Code(s): R42 - DIZZINESS AND GIDDINESS Status: Acute - Problem List Review Problem List Initiated/Reviewed/Updated: Yes - Assessment/Plan Plan: Patient counseled on anxiety, panic disorder and dizziness. Discussed management and close f/u in clinic tomorrow. Discussed adjustment of her anxiety medications or other meds. Patient to f/u as directed and as needed. She agrees with plan of care. Patient denies any current symptoms or concerns.
[2019-01-20 19:48] VITALS: BP 124/82; PULSE 96
== END 2019-01-20 19:14 | disposition home or self-care (01) ==
LOC: LB.ED 18:28
DX: F41.9 Anxiety disorder, unspecified (principal); R42 Dizziness and giddiness; E78.00 Pure hypercholesterolemia, unspecified; J44.9 Chronic obstructive pulmonary disease, unspecified; K21.9 Gastro-esophageal reflux disease without esophagitis; F32.9 Major depressive disorder, single episode, unspecified; G43.909 Migraine, unspecified, not intractable, without status migrainosus; F17.210 Nicotine dependence, cigarettes, uncomplicated; Z79.82 Long term (current) use of aspirin; Z79.899 Other long term (current) drug therapy
CPT/HCPCS: 99284; A0425; A0429; A9270; 99282

== ENCOUNTER 2019-01-22 22:05 | Emergency (ER) | payer MEDICARE, MEDICAID ==
--- NOTE | 2019-01-22 22:38 | EDM.PDOCBH ---
ED HPI GENERAL MEDICAL PROBLEM - General Chief Complaint: Behavioral/Psych Stated Complaint: ANXIETY Time Seen by Provider: 01/22/19 22:25 Source of Information: Reports: Patient, EMS, EMS Notes Reviewed - History of Present Illness INITIAL COMMENTS - FREE TEXT/NARRATIVE: This patient presents to the ED via EMS for evaluation of anxiety. She states ( EMS affirms) that she has been arguing with people in her apartment building and that made her feel anxious. Patient was seen by PCP earlier today and given a new medication "for my anxiety" that she states she took 20" prior to arrival. 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: Other (see below) ("I took my anxiety medicine.") - Related Data Allergies Allergy/AdvReac Type Severity Reaction Status Date / Time No Known Allergies Allergy Verified 01/16/19 23:58 Home Meds: Home Meds Aspirin 81 tab PO DAILY 08/05/13 [History] Divalproex Sodium [Divalproex Sodium ER] 500 mg PO DAILY 08/05/13 [History] Omeprazole 20 mg PO ACBREAKFAST 08/05/13 [History] Simvastatin 40 mg PO BEDTIME 08/05/13 [History] Divalproex Sodium [Divalproex Sodium ER] 1,000 mg PO BEDTIME 08/12/15 [History] Nitroglycerin [Nitrostat] 0.4 mg SL ASDIRECTED PRN 08/12/15 [History] Venlafaxine HCl [Venlafaxine HCl ER] 300 mg PO QPM 08/12/15 [History] busPIRone HCl [Buspirone HCl] 15 mg PO TID 08/25/15 [History] ARIPiprazole [Abilify] 30 mg PO QPM 11/20/18 [History] Acetaminophen [Tylenol] 650 mg PO Q4H PRN 11/20/18 [History] FLUoxetine [PROzac] 40 mg PO DAILY 11/20/18 [History] Furosemide [Lasix] 20 mg PO DAILY 11/20/18 [History] Isosorbide Mononitrate [Isosorbide Mononitrate ER] 30 mg PO DAILY 11/20/18 [ History] Montelukast [Singulair] 10 mg PO QPM 11/20/18 [History] Ranitidine HCl [Ranitidine] 150 mg PO BID 11/20/18 [History] hydrOXYzine pamoate [Vistaril] 50 mg PO TID PRN 11/20/18 [History] traZODone HCl [Trazodone HCl] 1 - 2 tab PO QPM PRN 11/20/18 [History] Albuterol [Ventolin HFA] 1 - 2 puff INH Q6H PRN 01/17/19 [History] Albuterol/Ipratropium [DuoNeb 3.0-0.5 MG/3 ML] 1 ampule INH Q4H PRN 01/17/19 [ History] Budesonide/Formoterol Fumarate [Symbicort 80-4.5 Mcg Inhaler] 1 - 2 puff INH DAILY 01/17/19 [History] Divalproex Sodium [Divalproex Sodium ER] 250 mg PO QPM 01/17/19 [History] Fluticasone Propionate [Flonase] 1 - 2 spray NASBOTH DAILY 01/17/19 [History] Loperamide HCl [Loperamide] 1 - 2 cap PO ASDIRECTED PRN 01/17/19 [History] Metoprolol Succinate [Toprol XL] 50 mg PO DAILY 01/17/19 [History] Nystatin [Nystatin Crm] 1 applic TOP TID 01/17/19 [History] Polyethylene Glycol 3350 [MiraLAX] 17 gm PO DAILY PRN 01/17/19 [History] Past Medical History - Past Health History Medical/Surgical History: Denies Medical/Surgical History HEENT History: Reports: Impaired Vision Cardiovascular History: Reports: Angina, CAD, High Cholesterol, Hypertension, Other (See Below) Other Cardiovascular History: Raynaud phenomenon Respiratory History: Reports: COPD, SOB Other Respiratory History: Current active smoker-1ppd x20 years Gastrointestinal History: Reports: Chronic Constipation, Chronic Diarrhea, GERD Genitourinary History: Reports: UTI, Recurrent 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 Neurological History: Reports: Migraines Psychiatric History: Reports: Anxiety, Bipolar, Depression, Panic Attack, Schizophrenia Endocrine/Metabolic History: Reports: Obesity/BMI 30+ Other Endocrine/Metabolic History: pt denies having diabetes 08/26/17 Dermatologic History: Reports: Other (See Below) Other Dermatologic History: Chronic open area present to breast folds - Infectious Disease History Infectious Disease History: Reports: Chicken Pox - Past Surgical History HEENT Surgical History: Reports: Adenoidectomy, Tonsillectomy Cardiovascular Surgical History: Reports: Coronary Artery Stent Respiratory Surgical History: Reports: None GI Surgical History: Reports: Colonoscopy Female Surgical History: Reports: None Endocrine Surgical History: Reports: None Neurological Surgical History: Reports: None Musculoskeletal Surgical History: Reports: None Social & Family History - Family History Family Medical History: Noncontributory HEENT: Reports: Impaired Vision Cardiac: Reports: Other (See Below) Other Cardiac Family History: Unknown Respiratory: Reports: Asthma GI: Reports: None : Reports: None OBGYN: Reports: None, Musculoskeletal: Reports: Arthritis Neurological: Reports: None Psychiatric: Reports: Anxiety, Bipolar, Depression, Panic Attack Endocrine/Metabolic: Reports: None Hematologic: Reports: None Immunologic: Reports: None - Caffeine Use Caffeine Use: Reports: Soda Other Caffeine Use: 2 bottles a day ED ROS GENERAL - Review of Systems Review Of Systems: See Below Constitutional: Reports: No Symptoms HEENT: Reports: No Symptoms Respiratory: Reports: No Symptoms Cardiovascular: Reports: No Symptoms GI/Abdominal: Reports: No Symptoms : Reports: No Symptoms Musculoskeletal: Reports: No Symptoms Skin: Reports: No Symptoms Neurological: Reports: Tremors (mild tremors of right hand and foot.) Psychiatric: Reports: Anxiety ED EXAM, BEHAVIORAL HEALTH - Physical Exam Exam: See Below Exam Limited By: No Limitations General Appearance: Alert, WD/WN, No Apparent Distress Eye Exam: Bilateral Eye: PERRL Ears: Normal External Exam Nose: Normal Inspection Head: Atraumatic, Normocephalic Neck: Normal Inspection, Full Range of Motion Respiratory/Chest: No Respiratory Distress, Lungs Clear, Normal Breath Sounds Cardiovascular: Regular Rate, Rhythm Extremities: Normal Range of Motion Neurological: Alert, Normal Mood/Affect Psychiatric: Alert, Normal Affect, Normal Mood, Oriented, Other (Resting on ED cart discussing fishing with nurse). No: Restless, Tearful, Agitated, Disoriented, Inattentive, Uncooperative, Threatening Behavior COURSE, BEHAVIORAL HEALTH COMP - Course Re-Assessment/Re-Exam: This patient presents to the ED for anxiety. On arrival to the ED there was no evidence of alteration in vital signs and the patient was calm and cooperative. It appears as though the medication she was given today and took just SPORTS TRAINER did manage her anxiety. The patient is safe for discharge to home. Departure - Departure Time of Disposition: 23:00 Disposition: Home, Self-Care 01 Condition: Good Clinical Impression: Anxiety - Discharge Information *PRESCRIPTION DRUG MONITORING PROGRAM REVIEWED*: No Forms: ED Department Discharge, ED Summary Discharge
== END 2019-01-22 22:52 | disposition home or self-care (01) ==
LOC: LB.ED 22:05
DX: F41.9 Anxiety disorder, unspecified (principal); I25.10 Atherosclerotic heart disease of native coronary artery without angina pectoris; I10 Essential (primary) hypertension; E78.00 Pure hypercholesterolemia, unspecified; J44.9 Chronic obstructive pulmonary disease, unspecified; K21.9 Gastro-esophageal reflux disease without esophagitis; F32.9 Major depressive disorder, single episode, unspecified; E66.9 Obesity, unspecified; Z79.82 Long term (current) use of aspirin; Z79.899 Other long term (current) drug therapy
CPT/HCPCS: 99283; A0425; A0429

== ENCOUNTER 2019-02-12 20:16 | Emergency (ER) | payer MEDICARE, MEDICAID ==
[2019-02-12] MEDS ORDERED: LORazepam 1 MG Tab PO ONE (20:46)
[2019-02-12] MEDS ORDERED: LORazepam 1 MG Tab ONE (20:57)
--- NOTE | 2019-02-12 20:58 | EDM.PDOC ---
ED HPI GENERAL MEDICAL PROBLEM - General Chief Complaint: General Stated Complaint: anxiety Time Seen by Provider: 02/12/19 20:45 Source of Information: Reports: Patient History Limitations: Reports: No Limitations - History of Present Illness INITIAL COMMENTS - FREE TEXT/NARRATIVE: This is a 53yo F here for concerns of anxiety. She is stressed that her landlord is bothering her and calling the speech language therapist on her. She denies any wrongdoing and any issues. She feels that the landlord is harassing her all the time. Duration: Constant, Getting Worse Location: Reports: Generalized Severity: Moderate Improves with: Reports: None Worsens with: Reports: None - Related Data Allergies Allergy/AdvReac Type Severity Reaction Status Date / Time No Known Allergies Allergy Verified 01/16/19 23:58 Home Meds: Home Meds Aspirin 81 tab PO DAILY 08/05/13 [History] Divalproex Sodium [Divalproex Sodium ER] 500 mg PO DAILY 08/05/13 [History] Omeprazole 20 mg PO ACBREAKFAST 08/05/13 [History] Simvastatin 40 mg PO BEDTIME 08/05/13 [History] Divalproex Sodium [Divalproex Sodium ER] 1,000 mg PO BEDTIME 08/12/15 [History] Nitroglycerin [Nitrostat] 0.4 mg SL ASDIRECTED PRN 08/12/15 [History] Venlafaxine HCl [Venlafaxine HCl ER] 300 mg PO QPM 08/12/15 [History] busPIRone HCl [Buspirone HCl] 15 mg PO TID 08/25/15 [History] ARIPiprazole [Abilify] 30 mg PO QPM 11/20/18 [History] Acetaminophen [Tylenol] 650 mg PO Q4H PRN 11/20/18 [History] FLUoxetine [PROzac] 40 mg PO DAILY 11/20/18 [History] Furosemide [Lasix] 20 mg PO DAILY 11/20/18 [History] Isosorbide Mononitrate [Isosorbide Mononitrate ER] 30 mg PO DAILY 11/20/18 [ History] Montelukast [Singulair] 10 mg PO QPM 11/20/18 [History] Ranitidine HCl [Ranitidine] 150 mg PO BID 11/20/18 [History] hydrOXYzine pamoate [Vistaril] 50 mg PO TID PRN 11/20/18 [History] traZODone HCl [Trazodone HCl] 1 - 2 tab PO QPM PRN 11/20/18 [History] Albuterol [Ventolin HFA] 1 - 2 puff INH Q6H PRN 01/17/19 [History] Albuterol/Ipratropium [DuoNeb 3.0-0.5 MG/3 ML] 1 ampule INH Q4H PRN 01/17/19 [ History] Budesonide/Formoterol Fumarate [Symbicort 80-4.5 MCG] 1 - 2 puff INH DAILY 01/17 [History] Divalproex Sodium [Divalproex Sodium ER] 250 mg PO QPM 01/17/19 [History] Fluticasone Propionate [Flonase] 1 - 2 spray NASBOTH DAILY 01/17/19 [History] Loperamide HCl [Loperamide] 1 - 2 cap PO ASDIRECTED PRN 01/17/19 [History] Metoprolol Succinate [Toprol XL] 50 mg PO DAILY 01/17/19 [History] Nystatin [Nystatin Crm] 1 applic TOP TID 01/17/19 [History] Polyethylene Glycol 3350 [MiraLAX] 17 gm PO DAILY PRN 01/17/19 [History] Past Medical History - Past Health History Medical/Surgical History: Denies Medical/Surgical History HEENT History: Reports: Impaired Vision Cardiovascular History: Reports: Angina, CAD, High Cholesterol, Hypertension, Other (See Below) Other Cardiovascular History: Raynaud phenomenon Respiratory History: Reports: COPD, SOB Other Respiratory History: Current active smoker-1ppd x20 years Gastrointestinal History: Reports: Chronic Constipation, Chronic Diarrhea, GERD Genitourinary History: Reports: UTI, Recurrent 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 Neurological History: Reports: Migraines Psychiatric History: Reports: Anxiety, Bipolar, Depression, Panic Attack, Schizophrenia Endocrine/Metabolic History: Reports: Obesity/BMI 30+ Other Endocrine/Metabolic History: pt denies having diabetes 08/26/17 Dermatologic History: Reports: Other (See Below) Other Dermatologic History: Chronic open area present to breast folds - Infectious Disease History Infectious Disease History: Reports: Chicken Pox - Past Surgical History HEENT Surgical History: Reports: Adenoidectomy, Tonsillectomy Cardiovascular Surgical History: Reports: Coronary Artery Stent Respiratory Surgical History: Reports: None GI Surgical History: Reports: Colonoscopy Female Surgical History: Reports: None Endocrine Surgical History: Reports: None Neurological Surgical History: Reports: None Musculoskeletal Surgical History: Reports: None Social & Family History - Family History Family Medical History: Noncontributory HEENT: Reports: Impaired Vision Cardiac: Reports: Other (See Below) Other Cardiac Family History: Unknown Respiratory: Reports: Asthma GI: Reports: None : Reports: None OBGYN: Reports: None, Musculoskeletal: Reports: Arthritis Neurological: Reports: None Psychiatric: Reports: Anxiety, Bipolar, Depression, Panic Attack Endocrine/Metabolic: Reports: None Hematologic: Reports: None Immunologic: Reports: None - Caffeine Use Caffeine Use: Reports: Soda Other Caffeine Use: 2 bottles a day ED ROS GENERAL - Review of Systems Review Of Systems: ROS reveals no pertinent complaints other than HPI. ED EXAM, GENERAL - Physical Exam Exam: See Below Exam Limited By: No Limitations General Appearance: Alert, WD/WN, No Apparent Distress Eye Exam: Bilateral Eye: EOMI, PERRL Ears: Normal External Exam Nose: Normal Inspection Throat/Mouth: Normal Inspection Head: Atraumatic, Normocephalic Neck: Normal Inspection Respiratory/Chest: No Respiratory Distress, Lungs Clear, Normal Breath Sounds Cardiovascular: Normal Peripheral Pulses, Regular Rate, Rhythm Extremities: Normal Inspection Neurological: Alert, Oriented, CN II-XII Intact Psychiatric: Normal Affect, Normal Mood Skin Exam: Warm, Dry, Intact, Other (excoriations and scarring from picking) Course - Orders/Labs/Meds Meds: Medications Discontinued Medications Generic Name Dose Route Start Last Admin Trade Name Freq PRN Reason Stop Dose Admin Lorazepam 1 mg 02/12/19 20:46 02/12/19 20:50 Ativan PO 02/12/19 20:47 1 mg ONETIME ONE Administration Lorazepam Confirm 02/12/19 20:57 Ativan Administered 02/12/19 20:58 Dose 1 mg .ROUTE .STK-MED ONE Departure - Departure Time of Disposition: 21:15 Disposition: Home, Self-Care 01 Condition: Good Clinical Impression: Anxiety - Discharge Information Referrals: PCP,None [Primary Care Provider] - - Problem List & Annotations (1) Agitation SNOMED Code(s): 312502923 Code(s): R45.1 - RESTLESSNESS AND AGITATION Status: Acute Priority: Medium Current Visit: Yes - Problem List Review Problem List Initiated/Reviewed/Updated: Yes - Assessment/Plan Plan: Counseled on coping and shutting window so that she does not allow the landlord or others to bother her. She should continue discussion with sprinkler worker for management of anxiety and agitation. Patient amenable to plan of care and management. She agrees to ignore what is bothering her and continue with her regular routine. Patient to f/u in clinic with PCP.
[2019-02-12 21:01] VITALS: BP 106/71; PULSE 79
== END 2019-02-12 21:32 | disposition home or self-care (01) ==
LOC: LB.ED 20:16
DX: F41.9 Anxiety disorder, unspecified (principal); I10 Essential (primary) hypertension; E78.00 Pure hypercholesterolemia, unspecified; J44.9 Chronic obstructive pulmonary disease, unspecified; K21.9 Gastro-esophageal reflux disease without esophagitis; F32.9 Major depressive disorder, single episode, unspecified; F17.210 Nicotine dependence, cigarettes, uncomplicated; Z79.82 Long term (current) use of aspirin; Z79.899 Other long term (current) drug therapy
CPT/HCPCS: 99282; A9270

== ENCOUNTER 2019-02-13 12:14 | Emergency (ER) | payer MEDICARE, MEDICAID ==
[2019-02-13 13:12] VITALS: BP 134/85; PULSE 75
--- NOTE | 2019-02-13 14:03 | EDM.PDOC ---
ED HPI GENERAL MEDICAL PROBLEM - General Chief Complaint: General Stated Complaint: FALL AT HOME Time Seen by Provider: 02/13/19 13:00 Source of Information: Reports: Patient, EMS, RN History Limitations: Reports: No Limitations - History of Present Illness INITIAL COMMENTS - FREE TEXT/NARRATIVE: This is a 53yo F here for a recent fall. She states she was cooking and felt dizzy and fell backwards. She states her neighbor found her because she was yelling. She states she was unable to get up. She complains of hip pain, back pain and neck pain. She denies any loss of consciousness. No cuts or bleeding. Onset: Sudden Location: Reports: Neck, Back, Pelvis Quality: Reports: Ache Severity: Moderate Improves with: Reports: None Worsens with: Reports: Movement Treatments BED RUBBER: Reports: Cervical Collar Left Hip Pain Score (Numeric/FACES): 10 Back Pain Score (Numeric/FACES): 10 - Related Data Allergies Allergy/AdvReac Type Severity Reaction Status Date / Time No Known Allergies Allergy Verified 01/16/19 23:58 Home Meds: Home Meds Aspirin 81 tab PO DAILY 08/05/13 [History] Divalproex Sodium [Divalproex Sodium ER] 500 mg PO DAILY 08/05/13 [History] Omeprazole 20 mg PO ACBREAKFAST 08/05/13 [History] Simvastatin 40 mg PO BEDTIME 08/05/13 [History] Divalproex Sodium [Divalproex Sodium ER] 1,000 mg PO BEDTIME 08/12/15 [History] Nitroglycerin [Nitrostat] 0.4 mg SL ASDIRECTED PRN 08/12/15 [History] Venlafaxine HCl [Venlafaxine HCl ER] 300 mg PO QPM 08/12/15 [History] busPIRone HCl [Buspirone HCl] 15 mg PO TID 08/25/15 [History] ARIPiprazole [Abilify] 30 mg PO QPM 11/20/18 [History] Acetaminophen [Tylenol] 650 mg PO Q4H PRN 11/20/18 [History] FLUoxetine [PROzac] 40 mg PO DAILY 11/20/18 [History] Furosemide [Lasix] 20 mg PO DAILY 11/20/18 [History] Isosorbide Mononitrate [Isosorbide Mononitrate ER] 30 mg PO DAILY 11/20/18 [ History] Montelukast [Singulair] 10 mg PO QPM 11/20/18 [History] Ranitidine HCl [Ranitidine] 150 mg PO BID 11/20/18 [History] hydrOXYzine pamoate [Vistaril] 50 mg PO TID PRN 11/20/18 [History] traZODone HCl [Trazodone HCl] 1 - 2 tab PO QPM PRN 11/20/18 [History] Albuterol [Ventolin HFA] 1 - 2 puff INH Q6H PRN 01/17/19 [History] Albuterol/Ipratropium [DuoNeb 3.0-0.5 MG/3 ML] 1 ampule INH Q4H PRN 01/17/19 [ History] Budesonide/Formoterol Fumarate [Symbicort 80-4.5 MCG] 1 - 2 puff INH DAILY 01/17 [History] Divalproex Sodium [Divalproex Sodium ER] 250 mg PO QPM 01/17/19 [History] Fluticasone Propionate [Flonase] 1 - 2 spray NASBOTH DAILY 01/17/19 [History] Loperamide HCl [Loperamide] 1 - 2 cap PO ASDIRECTED PRN 01/17/19 [History] Metoprolol Succinate [Toprol XL] 50 mg PO DAILY 01/17/19 [History] Nystatin [Nystatin Crm] 1 applic TOP TID 01/17/19 [History] Polyethylene Glycol 3350 [MiraLAX] 17 gm PO DAILY PRN 01/17/19 [History] Past Medical History - Past Health History Medical/Surgical History: Denies Medical/Surgical History HEENT History: Reports: Impaired Vision Cardiovascular History: Reports: Angina, CAD, High Cholesterol, Hypertension, Other (See Below) Other Cardiovascular History: Raynaud phenomenon Respiratory History: Reports: COPD, SOB Other Respiratory History: Current active smoker-1ppd x20 years Gastrointestinal History: Reports: Chronic Constipation, Chronic Diarrhea, GERD Genitourinary History: Reports: UTI, Recurrent 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 Neurological History: Reports: Migraines Psychiatric History: Reports: Anxiety, Bipolar, Depression, Panic Attack, Schizophrenia Endocrine/Metabolic History: Reports: Obesity/BMI 30+ Other Endocrine/Metabolic History: pt denies having diabetes 08/26/17 Dermatologic History: Reports: Other (See Below) Other Dermatologic History: Chronic open area present to breast folds - Infectious Disease History Infectious Disease History: Reports: Chicken Pox - Past Surgical History HEENT Surgical History: Reports: Adenoidectomy, Tonsillectomy Cardiovascular Surgical History: Reports: Coronary Artery Stent Respiratory Surgical History: Reports: None GI Surgical History: Reports: Colonoscopy Female Surgical History: Reports: None Endocrine Surgical History: Reports: None Neurological Surgical History: Reports: None Musculoskeletal Surgical History: Reports: None Social & Family History - Family History Family Medical History: Noncontributory HEENT: Reports: Impaired Vision Cardiac: Reports: Other (See Below) Other Cardiac Family History: Unknown Respiratory: Reports: Asthma GI: Reports: None : Reports: None OBGYN: Reports: None, Musculoskeletal: Reports: Arthritis Neurological: Reports: None Psychiatric: Reports: Anxiety, Bipolar, Depression, Panic Attack Endocrine/Metabolic: Reports: None Hematologic: Reports: None Immunologic: Reports: None - Tobacco Use Smoking Status *Q: Current Some Day Smoker Years of Tobacco use: 12 Packs/Tins Daily: 2 Used Tobacco, but Quit: No Second Hand Smoke Exposure: Yes - Caffeine Use Caffeine Use: Reports: Coffee, Soda Other Caffeine Use: 2 bottles a day Caffeine Use Comment: not much; 1 cup daily - Recreational Drug Use Recreational Drug Use: No ED ROS GENERAL - Review of Systems Review Of Systems: ROS reveals no pertinent complaints other than HPI. ED EXAM, GENERAL - Physical Exam Exam: See Below Exam Limited By: No Limitations General Appearance: Alert, WD/WN, No Apparent Distress Eye Exam: Bilateral Eye: EOMI, PERRL Ears: Normal External Exam Nose: Normal Inspection Throat/Mouth: Normal Inspection Head: Atraumatic, Normocephalic Neck: Normal Inspection, Supple, Tender Lateral Respiratory/Chest: No Respiratory Distress, Lungs Clear, Normal Breath Sounds Cardiovascular: Normal Peripheral Pulses, Regular Rate, Rhythm Peripheral Pulses: 2+: Dorsalis Pedis (L), Dorsalis Pedis (R) GI/Abdominal: Normal Bowel Sounds Back Exam: Paraspinal Tenderness Extremities: Normal Inspection, Normal Range of Motion, Non-Tender Skin Exam: Warm, Dry, Intact, Other (no cuts or bruises) Course - Vital Signs Last Recorded V/S: Last Vital Signs Temp 36.6 C 02/13/19 12:45 Pulse 75 02/13/19 13:12 Resp 18 02/13/19 13:12 BP 134/85 02/13/19 13:12 Pulse Ox 98 02/13/19 13:12 - Orders/Labs/Meds Orders: Active Orders 24 hr Category Date Time Status EKG Documentation Completion [RC] ASDIRECTED Care 02/13/19 12:31 Active C-Spine [Cervical Spine wo Cont] [CT] Stat Exams 02/13/19 12:43 Taken Hip Min 2V or 3V Rt [CR] Stat Exams 02/13/19 12:25 Taken Lumbar Spine wo Cont [CT] Stat Exams 02/13/19 12:43 Taken Thoracic Spine wo Cont [CT] Stat Exams 02/13/19 12:43 Taken Labs: Laboratory Tests 02/13/19 02/13/19 Range/Units 12:45 12:45 WBC 4.3 D (4.0-11.0) K/uL RBC 4.56 (3.80-5.80) M/uL Hgb 13.1 (11.5-16.5) g/dL Hct 39.1 (37.0-47.0) % MCV 86 (76-96) fL MCH 28.7 (27.0-32.0) pg MCHC 33.5 (31.0-35.0) g/dL RDW 13.6 (11.0-16.0) % Plt Count 154 D (150-500) K/uL MPV 9.0 (6.0-10.0) fL Neut % (Auto) 37.5 L (45.0-70.0) % Lymph % (Auto) 49.2 H (20.0-40.0) % [place] % (Auto) 11.9 H (3.0-10.0) % Eos % (Auto) 1.2 (1.0-5.0) % Baso % (Auto) 0.2 (0.0-0.5) % Neut # (Auto) 1.61 L (2.00-7.50) K/uL Lymph # (Auto) 2.11 (1.50-4.00) K/uL [place] # (Auto) 0.51 (0.20-0.80) K/uL Eos # (Auto) 0.05 (0.04-0.40) K/uL Baso # (Auto) 0.01 L (0.02-0.10) K/uL Sodium 142 (136-145) mmol/L Potassium 4.1 D (3.5-5.1) mmol/L Chloride 103 (98-107) mmol/L Carbon Dioxide 30.2 (21.0-32.0) mmol/L Anion Gap 12.9 (5.0-15.0) mmol/L BUN 13 D (8-26) mg/dL Creatinine 1.08 H (0.55-1.02) mg/dL Est Cr Clr Drug Dosing TNP Estimated GFR (MDRD) 53 L (>60) MLS/MIN BUN/Creatinine Ratio 12.0 (6-25) Glucose 84 (74-100) mg/dL Calcium 8.5 (8.5-10.1) mg/dL Meds: Medications Discontinued Medications Generic Name Dose Route Start Last Admin Trade Name Freq PRN Reason Stop Dose Admin Meclizine HCl Confirm 02/13/19 13:49 Antivert Administered 02/13/19 13:50 Dose 150 mg .ROUTE .STK-MED ONE Departure - Departure Time of Disposition: 13:55 Disposition: Home, Self-Care 01 Condition: Good Clinical Impression: Fall at home Qualifiers: Encounter type: initial encounter Qualified Code(s): W19.XXXA - Unspecified fall, initial encounter; Y92.009 - Unspecified place in unspecified non- institutional (private) residence as the place of occurrence of the external cause - Discharge Information Instructions: Vertigo, Understanding Your Risk for Falls Referrals: PCP,None [Primary Care Provider] - Forms: ED Department Discharge Additional Instructions: Follow up in the clinic on Friday or Friday Take Meclizine 3 times a day for your dizziness If your symptoms worsen or persist; return to ER or clinic - Problem List & Annotations (1) Vertigo SNOMED Code(s): 085386590 Code(s): R42 - DIZZINESS AND GIDDINESS Status: Acute Priority: High Annotation/Comment:: Patient states the room spins but denies lightheadedness or confusion. (2) Fall at home SNOMED Code(s): 02377433 Code(s): W19.XXXA - UNSPECIFIED FALL, INITIAL ENCOUNTER; Y92.009 - UNSP PLACE IN UNSP NON-INSTITUT (PRIVATE) RESIDENCE PLACE Status: Acute Priority: High Qualifiers: Encounter type: initial encounter Qualified Code(s): W19.XXXA - Unspecified fall, initial encounter; Y92.009 - Unspecified place in unspecified non-institutional (private) residence as the place of occurrence of the external cause - Problem List Review Problem List Initiated/Reviewed/Updated: Yes - My Orders Last 24 Hours: My Active Orders 02/13/19 12:25 Hip Min 2V or 3V Rt [CR] Stat 02/13/19 12:31 EKG Documentation Completion [RC] ASDIRECTED 02/13/19 12:43 C-Spine [Cervical Spine wo Cont] [CT] Stat Lumbar Spine wo Cont [CT] Stat Thoracic Spine wo Cont [CT] Stat - Assessment/Plan Last 24 Hours: My Active Orders 02/13/19 12:25 Hip Min 2V or 3V Rt [CR] Stat 02/13/19 12:31 EKG Documentation Completion [RC] ASDIRECTED 02/13/19 12:43 C-Spine [Cervical Spine wo Cont] [CT] Stat Lumbar Spine wo Cont [CT] Stat Thoracic Spine wo Cont [CT] Stat Plan: Counseled on supportive care. Discussed BPPV and management. Discussed conservative management and use of meclizine and f/u in clinic this week. F/u in ER if symptoms worsen or any new developments to contact the hospital for further guidance.
--- NOTE | 2019-02-14 10:10 | CR ---
Date of Service: 02/13/19 Clinical Data: fall RIGHT HIP: Mild osteoarthritic changes. No acute fracture or dislocation. No lytic or blastic bone lesions. [id number] [facility]
--- NOTE | 2019-02-14 10:15 | CT ---
Date of Service: 02/13/19 Clinical Data: Fall CERVICAL SPINE CT: Multislice axial acquisition was performed. Axial images and sagittal and coronal reformations are reviewed. No acute fracture or dislocation. No lytic or blastic bone lesions. There is degenerative disk disease at multiple levels, greatest at the C5-6 level. There is a prominent posterior osteophyte at the C5-6 level on the right that protrudes into the spinal canal and contacts the spinal cord. No other significant findings. The soft tissues are unremarkable. [id number] [facility]
--- NOTE | 2019-02-14 10:19 | CT ---
Date of Service: 02/13/19 Clinical Data: Fall LUMBAR SPINE CT: Multislice axial acquisition was performed. Axial images and sagittal and coronal reformations are reviewed. No acute fracture or dislocation. No lytic or blastic bone lesions. There is degenerative disk disease at multiple levels with central and foraminal stenosis at multiple levels, greatest at the L3-4 and L4-5 levels. No other significant findings. IMPRESSION: No acute abnormalities. [id number] [facility]
--- NOTE | 2019-02-14 10:24 | CT ---
Date of Service: 02/13/19 Clinical Data: Fall THORACIC SPINE CT: Multislice axial acquisition was performed. Axial images and sagittal and coronal reformations are reviewed. There is no acute fracture or dislocation. No lytic or blastic bone lesions. There is mild degenerative disk disease throughout the thoracic spine. No significant central or foraminal stenosis. The soft tissues are unremarkable. There are mild atelectatic changes in the dependent portion of both lungs. The visualized lungs are otherwise clear. IMPRESSION: No acute abnormalities. [id number] [facility]
== END 2019-02-13 13:52 | disposition home or self-care (01) ==
LOC: LB.ED 12:14
DX: M25.552 Pain in left hip (principal); M54.9 Dorsalgia, unspecified; M54.2 Cervicalgia; R42 Dizziness and giddiness; I25.10 Atherosclerotic heart disease of native coronary artery without angina pectoris; J44.9 Chronic obstructive pulmonary disease, unspecified; K21.9 Gastro-esophageal reflux disease without esophagitis; I10 Essential (primary) hypertension; I20.9 Angina pectoris, unspecified; E78.5 Hyperlipidemia, unspecified; F32.9 Major depressive disorder, single episode, unspecified; E66.9 Obesity, unspecified; F41.9 Anxiety disorder, unspecified; F17.200 Nicotine dependence, unspecified, uncomplicated; Z79.51 Long term (current) use of inhaled steroids; Z79.82 Long term (current) use of aspirin; Z79.899 Other long term (current) drug therapy; W19.XXXA Unspecified fall, initial encounter; Y92.009 Unspecified place in unspecified non-institutional (private) residence as the place of occurrence of the external cause; Y93.G3 Activity, cooking and baking
CPT/HCPCS: 36415; 72125; 72128; 72131; 73502-RT; 80048; 85025; 93005; 99284-25; A0425; A0429; A9270-GY